=== PATIENT | female | born 1945 | race Caucasian/White ===

== ENCOUNTER → 2018-08-17 | Outpatient (CLI) | payer MEDICARE, OTHER ==
[2018-08-17 12:12] LABS: APPEARANCE,URINE CLOUDY; BILIRUBIN,URINE NEGATIVE (NEGATIVE); COLOR,URINE YELLOW; GLUCOSE, URINE NEGATIVE (NEGATIVE); KETONES,URINE NEGATIVE (NEGATIVE); LEUKOCYTE ESTERASE,URINE LARGE (NEGATIVE); NITRITE,URINE NEGATIVE (NEGATIVE); PROTEIN,URINE NEGATIVE (NEGATIVE); URINE SPECIFIC GRAVITY 1.015; UROBILINOGEN,URINE NEGATIVE mg/dL (<2.0)
[2018-08-17 12:29] LABS: ANION GAP 9 (5-19); BLOOD UREA NITROGEN 22 mg/dL (7-20); CALCIUM 9.3 mg/dL (8.4-10.2); CARBON DIOXIDE 24 mmol/L (22-30); CHLORIDE 107 mmol/L (98-107); GLUCOSE 115 mg/dL (75-110); POTASSIUM 4.2 mmol/L (3.6-5.0); SODIUM 140.3 mmol/L (137-145)
[2018-08-18 11:39] LABS: CREATININE URINE 117.8 mg/dL (Not Estab.); MICROALBUMIN URINE 12.2 ug/mL (Not Estab.)
== END ==
LOC: OD 11:31
PROVIDERS: ATTEND Internal Medicine Nephrology
DX: I12.9 Hypertensive chronic kidney disease with stage 1 through stage 4 chronic kidney disease, or unspecified chronic kidney disease (principal); N18.3 Chronic kidney disease, stage 3 (moderate)
CPT/HCPCS: 36415; 80048; 81001; 82043; 82306; 82570; 83970; 84100

== ENCOUNTER → 2018-08-17 | Outpatient (CLI) | payer MEDICARE, OTHER ==
--- NOTE | 2018-08-17 13:56 | RADIOLOGY REPORT (SQ) ---
EXAM DESCRIPTION: U/S RETROPERITON (RENAL/AORTA) COMPLETED DATE/TIME: 08/17/2018 1:19 pm REASON FOR STUDY: CHRONIC KIDNEY DISEASE, STAGE 3 (MODERATE N18.3 CHRONIC KIDNEY DISEASE, STAGE 3 ( MODERATE) COMPARISON: None. TECHNIQUE: Dynamic and static grayscale images acquired of the kidneys and bladder and recorded on P ACS. Additional selected color Doppler and spectral images recorded. LIMITATIONS: None. FINDINGS: RIGHT KIDNEY: Poorly seen. Small. 6.2 x 3.2 x 3.2 cm. LEFT KIDNEY: Poorly seen. Small. 8 x 3.9 x 4 cm. BLADDER: Bladder is nondistended. OTHER FINDINGS: No other significant finding. IMPRESSION: Small kidneys. Very limited study. TECHNICAL DOCUMENTATION: JOB ID: [id number] [employer]- All Rights Reserved Reading location - IP/workstation name: [email or web address]
== END ==
LOC: RAD 12:06
PROVIDERS: ATTEND Internal Medicine Nephrology
DX: N18.3 Chronic kidney disease, stage 3 (moderate) (principal)
CPT/HCPCS: 76770

== ENCOUNTER → 2018-12-18 | Outpatient (CLI) | payer MEDICARE, OTHER ==
[2018-12-18 11:10] LABS: ANION GAP 9 (5-19); BLOOD UREA NITROGEN 25 mg/dL (7-20); CALCIUM 9.1 mg/dL (8.4-10.2); CARBON DIOXIDE 25 mmol/L (22-30); CHLORIDE 106 mmol/L (98-107); GLUCOSE 98 mg/dL (75-110); POTASSIUM 4.1 mmol/L (3.6-5.0)
== END ==
LOC: OD 10:15
PROVIDERS: ATTEND Internal Medicine Nephrology
DX: I12.9 Hypertensive chronic kidney disease with stage 1 through stage 4 chronic kidney disease, or unspecified chronic kidney disease (principal); N18.3 Chronic kidney disease, stage 3 (moderate)
CPT/HCPCS: 36415; 80048

== ENCOUNTER → 2019-01-16 | Outpatient (CLI) | payer MEDICARE, OTHER ==
[2019-01-16 13:07] LABS: ANION GAP 10 (5-19); BLOOD UREA NITROGEN 39 mg/dL (7-20); CALCIUM 9.1 mg/dL (8.4-10.2); CARBON DIOXIDE 24 mmol/L (22-30); CHLORIDE 106 mmol/L (98-107); GLUCOSE 114 mg/dL (75-110); POTASSIUM 4.6 mmol/L (3.6-5.0)
== END ==
LOC: OD 11:46
PROVIDERS: ATTEND Internal Medicine Nephrology
DX: I12.9 Hypertensive chronic kidney disease with stage 1 through stage 4 chronic kidney disease, or unspecified chronic kidney disease (principal); N18.3 Chronic kidney disease, stage 3 (moderate)
CPT/HCPCS: 36415; 80048

== ENCOUNTER → 2019-04-17 | Outpatient (CLI) | payer MEDICARE, OTHER ==
[2019-04-17 12:28] LABS: ABSOLUTE BASOPHILS # (AUTO) 0.1 10^3/uL (0.0-0.2); ABSOLUTE EOSINOPHILS # (AUTO) 0.2 10^3/uL (0.0-0.6); ABSOLUTE LYMPHOCYTES (AUTO) 1.4 10^3/uL (0.5-4.7); ABSOLUTE MONOCYTES (AUTO) 0.6 10^3/uL (0.1-1.4); ABSOLUTE NEUT (AUTO) 4.7 10^3/uL (1.7-8.2); EOSINOPHILS % (AUTO) 2.5 % (0-6); HEMATOCRIT 38.6 % (36.0-47.0); HEMOGLOBIN 12.7 g/dL (12.0-15.5); LYMPHOCYTES % (AUTO) 19.6 % (13-45); MEAN CORPUSCULAR HEMOGLOBIN 31.2 pg (27.0-33.4); MEAN CORPUSCULAR HGB CONC 32.9 g/dL (32.0-36.0); MEAN CORPUSCULAR VOLUME 95 fl (80-97); PLATELET COUNT 132 10^3/uL (150-450); RED BLOOD COUNT 4.07 10^6/uL (3.72-5.28); RED CELL DISTRIBUTION WIDTH 13.9 % (11.5-14.0); SEGMENTED NEUTROPHILS % (AUTO) 67.9 % (42-78); TOTAL CELLS COUNTED % (AUTO) 100 %; WHITE BLOOD COUNT 6.9 10^3/uL (4.0-10.5)
[2019-04-17 12:31] LABS: APPEARANCE,URINE TURBID; BILIRUBIN,URINE NEGATIVE (NEGATIVE); GLUCOSE, URINE NEGATIVE (NEGATIVE); KETONES,URINE NEGATIVE (NEGATIVE); LEUKOCYTE ESTERASE,URINE LARGE (NEGATIVE); NITRITE,URINE NEGATIVE (NEGATIVE); PROTEIN,URINE 100 mg/dL (NEGATIVE); URINE SPECIFIC GRAVITY 1.015; UROBILINOGEN,URINE NEGATIVE mg/dL (<2.0)
[2019-04-17 12:32] LABS: COLOR,URINE YELLOW
[2019-04-17 12:45] LABS: ALBUMIN 3.6 g/dL (3.5-5.0); ANION GAP 12 (5-19); BLOOD UREA NITROGEN 22 mg/dL (7-20); CALCIUM 9.2 mg/dL (8.4-10.2); CARBON DIOXIDE 27 mmol/L (22-30); CHLORIDE 104 mmol/L (98-107); GLUCOSE 116 mg/dL (75-110); PHOSPHORUS 4.1 mg/dL (2.5-4.5); POTASSIUM 4.3 mmol/L (3.6-5.0)
[2019-04-18 13:36] LABS: CREATININE URINE 188.8 mg/dL (Not Estab.); MICROALBUMIN URINE 368.5 ug/mL (Not Estab.)
== END ==
LOC: OD 11:47
PROVIDERS: ATTEND Internal Medicine Nephrology
DX: I12.9 Hypertensive chronic kidney disease with stage 1 through stage 4 chronic kidney disease, or unspecified chronic kidney disease (principal); N18.4 Chronic kidney disease, stage 4 (severe); N39.0 Urinary tract infection, site not specified
CPT/HCPCS: 36415; 80069; 81001; 82043; 82306; 82570; 83970; 85025

== ENCOUNTER 2019-10-19 14:37 | Inpatient (IN) | payer MEDICARE, OTHER ==
--- NOTE | 2019-10-19 14:43 | ER Document Report ---
ED Neuro Symptoms/Deficit <YUDITH MULLERMILTON Payne - Last Filed: 10/19/19 19:00> - General Mode of Arrival: Medic Information source: Patient Notes: 74-year-old woman brought to the emergency department today apparently EMS was called to the home because patient had a fall but then learned that the patient has been having weakness in the left side since approximately 11 AM today. She also has slurred speech and facial droop which consistent with an acute stroke. The patient denies any pain states that she is only on blood pressure medications and no blood thinners. Currently the patient last known well was 2:30 AM on 10/19/2019. She awoke during the morning and then attempted to stand at about 11 AM and fail realizing that she had weakness. Apparently there was no family who had seen the patient since 2:30 in the morning. TRAVEL OUTSIDE OF THE [place] IN LAST 30 DAYS: No <AARON AVALOS - Last Filed: 10/25/19 08:34> - General Chief Complaint: S/S of Possible Stroke Stated Complaint: POSSIBLE STROKE Time Seen by Provider: 10/19/19 14:41 - Related Data Allergies/Adverse Reactions: benzocaine [From Hurricaine] Allergy (Severe, Verified 11/20/14 11:22) closed throat,couldn't breathe clonidine [Clonidine] Allergy (Severe, Verified 11/20/14 11:22) seeing things, dizziness pineapple [Pineapple] Allergy (Severe, Verified 11/20/14 11:22) eyes swollen shut Penicillins Allergy (Intermediate, Verified 11/20/14 11:22) swelling scallops Allergy (Severe, Uncoded 11/19/14 09:15) nausea/vomiting Hurricaine Allergy (Uncoded 11/05/14 02:07) Past Medical History - Social History Smoking Status: Unknown if Ever Smoked Family History: Reviewed & Not Pertinent - Past Medical History Cardiac Medical History: Reports: Hx Coronary Artery Disease, Hx Hypercholesterolemia, Hx Hypertension - meds x 6 years Denies: Hx Heart Attack Pulmonary Medical History: Reports: Hx Bronchitis Denies: Hx Asthma, Hx COPD, Hx Pneumonia Neurological Medical History: Denies: Hx Cerebrovascular Accident, Hx Seizures Musculoskeletal Medical History: Reports Hx Arthritis - back Past Surgical History: Reports: Hx Appendectomy, Hx Cholecystectomy, Hx H erniorrhaphy, Hx Hysterectomy - Immunizations Hx Diphtheria, Pertussis, Tetanus Vaccination: Yes Hx Pneumococcal Vaccination: 05/09/06 <AARON AVALOS - Last Filed: 10/25/19 08:34> Review of Systems - Review of Systems Notes: Constitutional: Negative for fever. HENT: Negative for sore throat. Eyes: Negative for visual changes. Cardiovascular: Negative for chest pain. Respiratory: Negative for shortness of breath. Gastrointestinal: Negative for abdominal pain, vomiting or diarrhea. Genitourinary: Negative for dysuria. Musculoskeletal: Negative for back pain. Skin: Negative for rash. Neurological: + Left upper and lower extremity weakness, left facial droop, slurred speech 10 point ROS negative except as marked above and in HPI. <ARAON AVALOS - Last Filed: 10/25/19 08:34> Physical Exam - Vital signs Vitals: Pulse Resp BP Pulse Ox 114 H 20 154/124 H 97 10/19/19 14:37 10/19/19 14:37 10/19/19 14:37 10/19/19 14:37 <BOYD MULLER - Last Filed: 10/19/19 19:00> - Notes Notes: PHYSICAL EXAMINATION: Physical Exam: General: Well-nourished well-developed 74-year-old woman in no acute distress HEENT: + Left facial droop with increased nasolabial fold, pupils equal round and reactive to light, MM moist,nares clear, oropharynx clear, airway patent Neck: supple, no adenopathy, no masses. Good range of motion Lungs: clear, no wheezing, no rales no rhonchi CVS: Irregularly irregular rhythm no murmur gallop or rub Abdomen: Soft, active, nontender, no masses, no hepatosplenomegaly Ext: No edema, clubbing or cyanosis. Neuro: Alert and responsive, left upper extremity weakness with 2-3/5 left hand strength compared to right, unable to lift the left leg against gravity. Skin: Intact no open lesions, no rash PSYCH: Normal mood, normal affect. <AARON AVALOS - Last Filed: 10/25/19 08:34> Course - Re-evaluation Re-evalutation: 10/19/19 18:44 I assumed care of this patient. I was waiting for the patient's CTA of the head and neck to come back. CTA of the head and neck failed to show any significant blockage. I went to evaluate the patient. On initial evaluation, it was clear that the patient was in atrial fibrillation. She has no history of atrial fibrillation. Her heart rates have not been controlled. I do not have a clear onset of this patient's symptoms, but she continues to have slurred speech, left facial droop, left upper extremity and left lower extremity weakness. Cardizem was ordered. I spoke briefly with input output clerk, Dr. Hall, about appropriate disposition for this patient. Unfortunately most of the hospitals in the area are without beds. The input output clerk has agreed to come and evaluate the patient for most appropriate disposition. 10/19/19 19:03 Dr. Hall came and evaluated the patient. He will accept her for admission. Patient received the initial Cardizem 10 bolus, her heart rate rapidly went into the 50s and 60s. Based on this information I told the nurse to hold the Cardizem drip. The patient is asymptomatic with her heart rate in the 50s. She will be admitted to the ICU for further care. - Vital Signs Vital signs: Temp Pulse Resp BP Pulse Ox 98.3 F 114 H 21 H 157/130 H 93 10/19/19 14:40 10/19/19 14:37 10/19/19 17:04 10/19/19 17:04 10/19/19 17:04 - Laboratory Result Diagrams: 10/19/19 15:01 10/19/19 15:01 Laboratory results interpreted by me: 10/19/19 10/19/19 10/19/19 14:58 15:01 15:01 RDW 14.1 H Plt Count 129 L PT 15.8 H Chloride Est GFR ( Amer) Est GFR (MDRD) Non-Af Glucose POC Glucose 134 H Creatine Kinase 10/19/19 15:01 RDW Plt Count PT Chloride 108 H Est GFR ( Amer) 54 L Est GFR (MDRD) Non-Af 45 L Glucose 148 H POC Glucose Creatine Kinase 22 L <BOYD MULLER M - Last Filed: 10/19/19 19:00> - Re-evaluation Re-evalutation: 10/19/19 15:57 Patient is not a candidate for TPA, her symptoms began at unknown time. Apparently dense stroke with left upper and lower extremity involvement facial droop and speech involvement. NIH scale 7-8. A CTA of the head and neck is being performed to exclude large vessel obstruction. - Laboratory Result Diagrams: 10/25/19 04:54 10/25/19 04:54 - Diagnostic Test Radiology reviewed: Image reviewed, Reports reviewed Radiology results interpreted by me: 10/19/19 15:51 CT head noncontrast: Mild chronic changes of atrophy and microvascular ischemia, no evidence of a acute stroke. - EKG Interpretation by Me Rhythm: A.Fib - Atrial fib, variable rate between 75 and 155, left bundle branch block, no other acute changes. Prior EKG 10/27/2014 revealing wide-complex tachycardia with left bundle branch block. <AARON AVALOS - Last Filed: 10/25/19 08:34> Critical Care Note - Critical Care Note Total time excluding time spent on procedures (mins): 20 <BOYD MULLER - Last Filed: 10/19/19 19:00> ED [employer]/Exc Criteria ED NIH Stroke Scale Discharge - Discharge Admitting Provider: Rafael (Precision Machine Operator) Unit Admitted: ICU <BOYD MULLER - Last Filed: 10/19/19 19:00> <AARON AVALOS - Last Filed: 10/25/19 08:34> - Discharge Clinical Impression: CVA (cerebral vascular accident) Qualifiers: CVA mechanism: unspecified Qualified Code(s): I63.9 - Cerebral infarction, unspecified Atrial fibrillation Qualifiers: Atrial fibrillation type: other persistent Qualified Code(s): I48.19 - Other persistent atrial fibrillation Condition: Stable Disposition: ADMITTED INPATIENT
--- NOTE | 2019-10-19 15:02 | RADIOLOGY REPORT (SQ) ---
EXAM DESCRIPTION: CT HEAD WITHOUT IMAGES COMPLETED DATE/TIME: 10/19/2019 2:49 pm REASON FOR STUDY: slurred speech COMPARISON: None. TECHNIQUE: Axial images acquired through the brain without intravenous contrast. Images reviewed wi th bone, brain and subdural windows. Additional sagittal and coronal reconstructions were generated. Images stored on PACS. All CT scanners at this facility use dose modulation, iterative reconstruction, and/or weight based d osing when appropriate to reduce radiation dose to as low as reasonably achievable (ALARA). [facility]: Dose Right [facility]: CareDose [facility]: Dose Right [facility]: Teradose 4D [facility]: [employer] RADIATION DOSE: CT Rad equipment meets quality standard of care and radiation dose reduction techniq ues were employed. CTDIvol: 48.4 mGy. DLP: 780 mGy-cm. mGy. LIMITATIONS: None. FINDINGS: VENTRICLES: Prominent. CEREBRUM: No masses. No hemorrhage. No midline shift. Areas of low density in the white matter mos t likely due to chronic micro-vascular ischemic change. No evidence for acute infarction. CEREBELLUM: No masses. No hemorrhage. No alteration of density. No evidence for acute infarction. EXTRAAXIAL SPACES: Mild age-related involutional change. No fluid collections. No masses. ORBITS AND GLOBE: No intra- or extraconal masses. Normal contour of globe without masses. CALVARIUM: No fracture. PARANASAL SINUSES: No fluid or mucosal thickening. SOFT TISSUES: No mass or hematoma. OTHER: No other significant finding. IMPRESSION: MILD CHRONIC CHANGES OF ATROPHY AND MICROVASCULAR ISCHEMIA. NO ACUTE PROCESS. EVIDENCE OF ACUTE STROKE: NO. COMMENT: Pertinent positive or negative findings of the imaging study reported as a CRITICAL EXAM sal AVALOS MD at14:53 on 10/19/2019. Category of Critical Exam: Stroke protocol. TECHNICAL DOCUMENTATION: JOB ID: [id number] Quality ID # [id number]: Final reports with documentation of one or more dose reduction techniques (e.g., Au tomated exposure control, adjustment of the mA and/or kV according to patient size, use of iterative reconstruction technique) 2010 [employer]- All Rights Reserved Reading location - IP/workstation name: [email or web address]
[2019-10-19 15:16] LABS: INTERNATIONAL RATION (INR) 1.25
[2019-10-19 15:17] LABS: PARTIAL THROMBOPLASTIN TIME 25.5 SEC (23.5-35.8)
[2019-10-19 15:20] LABS: PROTHROMBIN TIME 15.8 SEC (11.4-15.4)
[2019-10-19 15:25] LABS: ABSOLUTE BASOPHILS # (AUTO) 0.1 10^3/uL (0.0-0.2); ABSOLUTE EOSINOPHILS # (AUTO) 0.1 10^3/uL (0.0-0.6); ABSOLUTE LYMPHOCYTES (AUTO) 1.6 10^3/uL (0.5-4.7); ABSOLUTE MONOCYTES (AUTO) 0.5 10^3/uL (0.1-1.4); ABSOLUTE NEUT (AUTO) 5.8 10^3/uL (1.7-8.2); EOSINOPHILS % (AUTO) 1.8 % (0-6); HEMATOCRIT 43.2 % (36.0-47.0); HEMOGLOBIN 14.4 g/dL (12.0-15.5); LYMPHOCYTES % (AUTO) 19.3 % (13-45); MEAN CORPUSCULAR HEMOGLOBIN 31.6 pg (27.0-33.4); MEAN CORPUSCULAR HGB CONC 33.4 g/dL (32.0-36.0); MEAN CORPUSCULAR VOLUME 95 fl (80-97); PLATELET COUNT 129 10^3/uL (150-450); RED BLOOD COUNT 4.56 10^6/uL (3.72-5.28); RED CELL DISTRIBUTION WIDTH 14.1 % (11.5-14.0); SEGMENTED NEUTROPHILS % (AUTO) 71.9 % (42-78); TOTAL CELLS COUNTED % (AUTO) 100 %; WHITE BLOOD COUNT 8.1 10^3/uL (4.0-10.5)
[2019-10-19 15:36] LABS: ALBUMIN 3.9 g/dL (3.5-5.0); ALKALINE PHOSPHATASE 58 U/L (38-126); ANION GAP 7 (5-19); ASPARTATE AMINO TRANSFERASE 26 U/L (14-36); BILIRUBIN,DIRECT 0.1 mg/dL (0.0-0.4); BILIRUBIN,TOTAL 0.8 mg/dL (0.2-1.3); BLOOD UREA NITROGEN 16 mg/dL (7-20); CALCIUM 9.5 mg/dL (8.4-10.2); CARBON DIOXIDE 24 mmol/L (22-30); CHLORIDE 108 mmol/L (98-107); CREATINE KINASE 22 U/L (30-135); GLUCOSE 148 mg/dL (75-110); POTASSIUM 4.1 mmol/L (3.6-5.0); TOTAL PROTEIN 7.5 g/dL (6.3-8.2)
--- NOTE | 2019-10-19 15:44 | RADIOLOGY REPORT (SQ) ---
EXAM DESCRIPTION: CHEST SINGLE VIEW IMAGES COMPLETED DATE/TIME: 10/19/2019 2:26 pm REASON FOR STUDY: slurred speech COMPARISON: 11/04/2014 EXAM PARAMETERS: NUMBER OF VIEWS: One view. TECHNIQUE: Single frontal radiographic view of the chest acquired. RADIATION DOSE: NA LIMITATIONS: None. FINDINGS: LUNGS AND PLEURA: Lungs are hyperinflated. No focal consolidation or pleural effusion. N o pneumothorax. MEDIASTINUM AND HILAR STRUCTURES: Normal mediastinal contour. No hilar mass. HEART AND VASCULAR STRUCTURES: Moderate cardiomegaly. No pulmonary vascular congestion. BONES: No acute findings. HARDWARE: None in the chest. OTHER: No other significant finding. IMPRESSION: Moderate cardiomegaly. No acute cardiopulmonary disease. Hyperinflated lungs which can be seen with obstructive lung disease. TECHNICAL DOCUMENTATION: JOB ID: [id number] 2010 [employer]- All Rights Reserved Reading location - IP/workstation name: [email or web address]
[2019-10-19 15:48] LABS: CREATINE KINASE MB 0.55 ng/mL (<4.55); TROPONIN I 0.015 ng/mL
[2019-10-19] MEDS ORDERED: ASPIRIN 325 MG TABLET PO ONE (16:17)
--- NOTE | 2019-10-19 17:21 | RADIOLOGY REPORT (SQ) ---
EXAM DESCRIPTION: CTA HEAD IMAGES COMPLETED DATE/TIME: 10/19/2019 5:05 pm REASON FOR STUDY: CVA COMPARISON: None. TECHNIQUE: Post IV contrast scanning, thin section axial imaging through the brain to evaluate the a rterial structures. Source and MIP images are saved and reviewed on PACS. Advanced 3D imaging as volume-rendering, MIPs, SSD performed? yes All CT scanners at this facility use dose modulation, iterative reconstruction, and/or weight based d osing when appropriate to reduce radiation dose to as low as reasonably achievable (ALARA). [facility]: Dose Right [facility]: CareDose [facility]: Dose Right [facility]: Teradose 4D [facility]: [employer] CONTRAST TYPE AND DOSE: Contrast type and dose not recorded here. Refer to technologist's notes. RENAL FUNCTION: BUN 16 creatinine 1.18 LIMITATIONS: None. FINDINGS: [place]: The anterior, middle, posterior cerebral arteries are all patent. No ev idence of aneurysm or focal stenosis. POSTERIOR CIRCULATION: The distal vertebral arteries are patent as is the basilar artery. No aneurysm . BRAIN: No gross enhancing lesions. 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 SINUSES: No fluid or mucosal thickening. OTHER: No other significant finding. IMPRESSION: NO CTA EVIDENCE OF STENOSIS OR ANEURYSM OF THE [place]. TECHNICAL DOCUMENTATION: JOB ID: [id number] Quality ID # [id number]: Final reports with documentation of one or more dose reduction techniques (e.g., Au tomated exposure control, adjustment of the mA and/or kV according to patient size, use of iterative reconstruction technique) 2010 [employer]- All Rights Reserved Reading location - IP/workstation name: [email or web address]
--- NOTE | 2019-10-19 17:24 | RADIOLOGY REPORT (SQ) ---
EXAM DESCRIPTION: CTA NECK IMAGES COMPLETED DATE/TIME: 10/19/2019 5:05 pm REASON FOR STUDY: CVA COMPARISON: None. TECHNIQUE: Axial dynamic scanning technique with dynamic contrast enhancement through the extra-scrap yard worker nial carotid and vertebral arteries. Multiplanar reconstruction. 3-D MIPS and Volume-rendered imag es acquired at the workstation and saved to PACS. Images are reviewed in soft tissue, bone, lung w indows. All CT scanners at this facility use dose modulation, iterative reconstruction, and/or weight based d osing when appropriate to reduce radiation dose to as low as reasonably achievable (ALARA). [facility]: Dose Right [facility]: CareDose [facility]: Dose Right [facility]: Teradose 4D [facility]: [employer] CONTRAST TYPE AND DOSE: Contrast type and dose not recorded here. Refer to technologist's notes. RENAL FUNCTION: BUN 16 creatinine 1.18 LIMITATIONS: None. FINDINGS: AORTIC ARCH: Normal three-vessel origin. Bilateral subclavian arteries are patent. No d issection. RIGHT CAROTIDS: Patent common, internal and external carotid arteries without suggestion of significa nt stenosis or irregular plaque. No dissection. RIGHT VERTEBRAL: Patent. Smaller than the left. LEFT CAROTIDS: Patent common, internal and external carotid arteries without suggestion of significan t stenosis. There is calcified plaque in the carotid bulb. No dissection. LEFT VERTEBRAL: Patent. No dissection. OTHER: No other significant finding. OTHER: 3-D reconstructions confirm findings. IMPRESSION: There is some prominent calcified plaque in the left carotid bulb. There appears to be less than 50% stenosis of the ICA. The right vertebral artery is smaller than the left. COMMENT: Quality ID #[id number]: Measurements of distal internal carotid diameter were used as the denomina tor for stenosis measurement. TECHNICAL DOCUMENTATION: JOB ID: [id number] Quality ID # [id number]: Final reports with documentation of one or more dose reduction techniques (e.g., Au tomated exposure control, adjustment of the mA and/or kV according to patient size, use of iterative reconstruction technique) 2010 [employer]- All Rights Reserved Reading location - IP/workstation name: [email or web address]
[2019-10-19] MEDS ORDERED: DILTIAZEM HCL INJ 25 MG/5 ML VIAL IV ONE (18:34)
[2019-10-19] MEDS ORDERED: DILTIAZEM HCL/D5W 125 MG/125 ML RTUINJ IV PRN (18:35)
--- NOTE | 2019-10-19 19:07 | EKG REPORT ---
SEVERITY:- ABNORMAL ECG - ATRIAL FIBRILLATION, V-RATE 75-155 LEFT BUNDLE BRANCH BLOCK : Confirmed by: Yasmine Johnson MD 19-Oct-2019 19:06:33
[2019-10-19] MEDS ORDERED: ACETAMINOPHEN 325 MG TABLET PO PRN (19:31)
[2019-10-19] MEDS ORDERED: HEPARIN SOD (PORCINE) 1,000 UNIT/ML 10 ML VIAL IV ONE (19:44)
[2019-10-19] MEDS ORDERED: HEPARIN SODIUM,PORCINE/D5W 25,000 UNIT/250 ML RTUINJ IV PRN (19:44)
--- NOTE | 2019-10-19 21:37 | RADIOLOGY REPORT (SQ) ---
EXAM DESCRIPTION: MR BRAIN WITHOUT IV CONTRAST COMPLETED DATE/TME: 10/19/2019 00:00 CLINICAL HISTORY: Stroke protocol COMPARISON: 10/19/2019, TECHNIQUE: Multiplanar images of the brain were obtained without the administration of intravenous contrast FINDINGS: Ventricles and sulci are mildly prominent consistent with age-related atrophy. There is no evidence of midline shift. There is mild periventricular white matter disease and scattered foci of abnormal signal consistent with microvascular ischemic changes. Additional areas of abnormal T2 signal are noted in the posterior aspect of the insular cortex on the right and the external capsule as well as adjacent areas in the moulton radiata and segments at the frontoparietal lobe. Additional small foci are present in the occipital lobe. These areas are dark on ADC sequence. IMPRESSION: MULTIPLE SMALL FOCI OF ACUTE INFARCT WHICH INVOLVES SEGMENTS OF THE RIGHT INSULAR CORTEX, MOULTON RADIATA AND CORTICAL/SUBCORTICAL AREAS IN THE POSTERIOR FRONTAL AND PARIETAL LOBE WELL TWO SMALL FOCI IN THE OCCIPITAL LOBE GENERALIZED ATROPHY WITH PERIVENTRICULAR WHITE MATTER DISEASE AND MICROVASCULAR ISCHEMIC CHANGES Dr. Salinas was called and notified of the findings at 8:27 PM.
[2019-10-19] MEDS ORDERED: LABETALOL HCL INJ 20 MG/4 ML DISP.SYRIN IV PRN (21:50)
[2019-10-19] MEDS ORDERED: ATORVASTATIN CALCIUM 40 MG TABLET PO SCH ×2 (22:00)
[2019-10-19] MEDS: ATORVASTATIN CALCIUM 80 MG TABLET PO SCH (22:00)
[2019-10-19] MEDS ORDERED: HEPARIN SOD (PORCINE) 1,000 UNIT/ML 10 ML VIAL IV PRN (22:45)
[2019-10-19 22:52] LABS: FREE T3 2.57 pg/mL (2.77-5.27); FREE T4 (FREE THYROXINE) 1.3 ng/dL (0.78-2.19)
[2019-10-19 23:05] LABS: THYROID STIMULATING HORMONE 2.25 uIU/mL (0.47-4.68)
--- NOTE | 2019-10-20 00:18 | CRITICAL CARE ADMISSION REPORT ---
<RANJAN NOLASCO - Last Filed: 10/19/19 23:24> HPI Date:: 10/19/19 Time:: 19:00 Reason for ICU Reason:: Acute Stroke Admission Date/Time & PCP: Admission Date/Time: 10/19/19 19:40 Primary Care Provider: ANNMARIE YAN MD HPI: Shiloh Spencer is a 74-year-old female, with a past medical history of hypertension on losartan 100 mg daily, Lopressor 50 mg BID, and hydrochlorothiazide 12.5 mg daily presented to the ED via EMS after a fall. Patient states that she went to bed early last evening woke up at 3:30 AM and felt good. She is been having left-sided weakness at approximately 11 AM today. When she got up to take a shower she had worsening left-sided weakness and fell she denies any trauma from the fall. She herself called EMS, whom transported her to the ED. Upon arrival to the ED 1445 her blood pressure was 154/124 with a heart rate of 132 EKG revealed new onset atrial fibrillation. We were called to the ED to evaluate the patient at which time she was noted to have a blood pressure of 181/160 with heart rate 120s to 130s. She was bolused with 10 mg of diltiazem and a diltiazem drip was started her blood pressure did come down to 153/81 and heart rate of 62 remained in Afib. She had a new left facial droop, and slurred speech. She had an NIH stroke scale of 8. CTA of the head was done and revealed no intracranial abnormalities. MRI of the brain was done which revealed multiple small foci of acute infarct involving segments of the right insular cortex, dillard radiata, and cortical/subcortical areas in the posterior frontal and parietal lobe as well as 2 small foci in the occipital lobe. Heparin drip was ordered and she was admitted to the ICU for further management. - Diagnosis/Plan (1) Atrial fibrillation Qualifiers: Atrial fibrillation type: unspecified Qualified Code(s): I48.91 - Unspecified atrial fibrillation Is this a current diagnosis for this admission?: Yes Plan: New onset A. fib Continue heparin drip Cardizem drip to keep heart rate less than 110 Serial troponins We will get thyroid studies (2) CVA (cerebral vascular accident) Qualifiers: CVA mechanism: unspecified Qualified Code(s): I63.9 - Cerebral infarction, unspecified Is this a current diagnosis for this admission?: Yes Plan: MRI consistent with acute infarct is likely from new onset atrial fibrillation Continue heparin drip Will start aspirin High-dose Lipitor 80 mg p.o. nightly But panel in a.m. We will get TTE with bubble study to rule out PFO Check hemoglobin A1c Bedside swallow eval Neurochecks every 4 hours and as needed with any change in patient's condition Control hypertension with labetalol 20 mg IV as needed Stroke nurse consulted PT/ OT consult (3) Hypertension Qualifiers: Hypertension type: essential hypertension Qualified Code(s): I10 - Essential (primary) hypertension Is this a current diagnosis for this admission?: Yes Plan: Labetalol 20 mg IV as needed for a goal SBP less than 180 and DBP less than 105 We will hold on restarting home antihypertensives until formal swallow eval is completed Past Medical History Cardiac Medical History: Reports: Hypertension - meds x 6 years Denies: Myocardial Infarction Pulmonary Medical History: Reports: Bronchitis Denies: Asthma, Chronic Obstructive Pulmonary Disease (COPD), Pneumonia Neurological Medical History: Denies: Seizures Musculoskeltal Medical History: Reports: Arthritis - back Psychiatric Medical History: Reports: Depression Hematology: Reports: Anemia Past Surgical History Past Surgical History: Reports: Appendectomy, Cholecystectomy, Herniorrhaphy, Hysterectomy Social/Family History - Social History Smoking Status: Never Smoker Frequency of Alcohol Use: Rare Hx Recreational Drug Use: No Drugs: None Hx Prescription Drug Abuse: No - Medication/Allergies Home Medications: Gabapentin 300 mg PO TID 11/19/14 Losartan Potassium 100 mg PO DAILY 11/19/14 Metoprolol Tartrate [Lopressor 50 mg Tablet] 50 mg PO BID 11/19/14 Acetaminophen [Acetaminophen Extra Strength] 500 mg PO DAILYP PRN 10/19/19 Hydrochlorothiazide [Hydrodiuril 12.5 mg Tablet] 12.5 mg PO DAILY 10/19/19 Allergies/Adverse Reactions: benzocaine [From Hurricaine] Allergy (Severe, Verified 11/20/14 11:22) closed throat,couldn't breathe clonidine [Clonidine] Allergy (Severe, Verified 11/20/14 11:22) seeing things, dizziness pineapple [Pineapple] Allergy (Severe, Verified 07/15/15 11:22) eyes swollen shut Penicillins Allergy (Intermediate, Verified 11/20/14 11:22) swelling scallops Allergy (Severe, Uncoded 11/19/14 09:15) nausea/vomiting Hurricaine Allergy (Uncoded 11/05/14 02:07) Review of Systems Constitutional: PRESENT: weakness Cardiovascular: PRESENT: chest pain, palpitations Musculoskeletal: PRESENT: muscle weakness Neurological: PRESENT: focal weakness, numbness, weakness Physical Exam Vital Signs: Temp Pulse Resp BP Pulse Ox 97.6 F 87 20 133/108 H 95 10/19/19 21:40 10/19/19 21:40 10/19/19 21:43 10/19/19 21:43 10/19/19 21:43 Intake & Output 10/18/19 10/19/19 10/20/19 06:59 06:59 06:59 Intake Total 0 Balance 0 Weight 75.5 kg Weight/Height Weight 75.5 kg Height 4 ft 11 in General appearance: PRESENT: mild distress Head exam: PRESENT: atraumatic Eye exam: PRESENT: PERRLA Mouth exam: PRESENT: moist, neck supple Neck exam: PRESENT: full ROM Respiratory exam: PRESENT: clear to auscultation rocky Cardiovascular exam: PRESENT: irregular rhythm, tachycardia, other Pulses: PRESENT: normal radial pulses, normal dorsalis pedis pul GI/Abdominal exam: PRESENT: normal bowel sounds Neurological exam: PRESENT: alert, awake, oriented to person, oriented to place, oriented to time, oriented to situation, motor sensory deficit, other - slurred speech, left facial droop Laboratory/Radiographs Laboratory Results: 10/19/19 15:01 10/19/19 15:01 10/19/19 10/19/19 15:01 15:01 WBC 8.1 RBC 4.56 Hgb 14.4 Hct 43.2 MCV 95 MCH 31.6 MCHC 33.4 RDW 14.1 H Plt Count 129 L Seg Neutrophils % 71.9 Sodium 139.3 Potassium 4.1 Chloride 108 H Carbon Dioxide 24 Anion Gap 7 BUN 16 Creatinine 1.18 Est GFR ( Amer) 54 L Glucose 148 H Calcium 9.5 Total Bilirubin 0.8 AST 26 Alkaline Phosphatase 58 Total Protein 7.5 Albumin 3.9 10/19/19 10/19/19 10/19/19 15:01 15:01 22:06 Creatine Kinase 22 L CK-MB (CK-2) 0.55 Troponin I 0.015 0.014 Impressions: Head MRI 10/19/19 00:00 IMPRESSION: MULTIPLE SMALL FOCI OF ACUTE INFARCT WHICH INVOLVES SEGMENTS OF THE RIGHT INSULAR CORTEX, DILLARD RADIATA AND CORTICAL/SUBCORTICAL AREAS IN THE POSTERIOR FRONTAL AND PARIETAL LOBE WELL TWO SMALL FOCI IN THE OCCIPITAL LOBE GENERALIZED ATROPHY WITH PERIVENTRICULAR WHITE MATTER DISEASE AND MICROVASCULAR ISCHEMIC CHANGES Dr. Salinas was called and notified of the findings at 8:27 PM. Chest X-Ray 10/19/19 14:40 IMPRESSION: Moderate cardiomegaly. No acute cardiopulmonary disease. Hyperinflated lungs which can be seen with obstructive lung disease. Head CT 10/19/19 14:40 IMPRESSION: MILD CHRONIC CHANGES OF ATROPHY AND MICROVASCULAR ISCHEMIA. NO ACUTE PROCESS. EVIDENCE OF ACUTE STROKE: NO. Head CTA 10/19/19 14:59 IMPRESSION: NO CTA EVIDENCE OF STENOSIS OR ANEURYSM OF THE [place]. Neck CTA 10/19/19 14:59 IMPRESSION: There is some prominent calcified plaque in the left carotid bulb. There appears to be less than 50% stenosis of the ICA. The right vertebral artery is smaller than the left. All labs, radiographs, diagnostic studies and EKGs were personally reviewed: Yes In addition, reports of radiographic and diagnostic studies were read: Yes Critical Time Critical Time (minutes): 75 -: The care of a critically ill patient is dynamic. This note represents a static moment in the admission process. Orders and treatments may be given simultaneously and urgently, and time is not auto claim representative of the treatment process. This patient requires Critical Care secondary to life threatening organ or limb dysfunction. Without Critical Care services, the patient is at risk for inc reased mortality and morbidity. <JOANIE WALLS - Last Filed: 10/20/19 07:46> HPI Admission Date/Time & PCP: Admission Date/Time: 10/19/19 19:40 Primary Care Provider: ANNMARIE YAN MD Plan Summary: I personally saw and examined the patient in the emergency room in conjunction with JOE Nolasco. Patient last seen/known normal appears to have been approximately 2 AM which is almost 12 hours from her presentation to the emergency room She is right-hand dominant. I personally performed the NIHSS stroke scale giving her an 8. She has left-sided partial paresis. Left arm more affected than the left leg but both deficient with motor function at about 2/5. She has some dysarthria but no cognitive dysfunction. She endorses some chest discomfort and is notably in atrial fibrillation with a rate hovers at 1 20-1 30. Blood pressure is 150 systolic. There is some concern that given her large arm anatomy the blood pressure cuff may not be accurate and will need to be aware of this. Given the fact the patient is atrial fibrillation and has stroke syndrome we evaluated the CTA which did not show any large vessel occlusion. She is a candidate for heparin and have started this over a direct anti-10 a inhibitor so that we can watch for any potential bleeding given a recent fall. She does have ecchymosis on the right arm and will continue to monitor on heparin. We will place her in the ICU. In addition to nurse practitioner Matthew's time with the patient, I spent approximately 40 minutes in evaluation and discussion of case, plan and care. Physical Exam Vital Signs: Temp Pulse Resp BP Pulse Ox 97.8 F 95 20 112/77 99 10/20/19 04:00 10/20/19 03:40 10/20/19 06:00 10/20/19 05:32 10/20/19 06:00 Intake & Output 10/19/19 10/20/19 10/21/19 06:59 06:59 06:59 Intake Total 0 85 Output Total 30 Balance -30 85 Weight 75.5 kg Weight/Height Weight 75.5 kg Height 4 ft 11 in Laboratory/Radiographs Laboratory Results: 10/20/19 06:15 10/20/19 04:22 10/19/19 10/19/19 10/19/19 15:01 15:01 22:06 WBC 8.1 RBC 4.56 Hgb 14.4 Hct 43.2 MCV 95 MCH 31.6 MCHC 33.4 RDW 14.1 H Plt Count 129 L Seg Neutrophils % 71.9 Sodium 139.3 Potassium 4.1 Chloride 108 H Carbon Dioxide 24 Anion Gap 7 BUN 16 Creatinine 1.18 Est GFR ( Amer) 54 L Glucose 148 H Calcium 9.5 Total Bilirubin 0.8 AST 26 Alkaline Phosphatase 58 Total Protein 7.5 Albumin 3.9 Triglycerides Cholesterol LDL Cholesterol Direct VLDL Cholesterol HDL Cholesterol TSH 2.25 Free T4 1.30 Free T3 pg/mL 2.57 L 06/13/20 06/13/20 04:22 06:15 WBC 7.2 RBC 4.06 Hgb 12.8 Hct 38.2 MCV 94 MCH 31.6 MCHC 33.6 RDW 14.2 H Plt Count 90 L Seg Neutrophils % 53.4 Sodium 142.2 Potassium 3.4 L Chloride 111 H Carbon Dioxide 21 L Anion Gap 10 BUN 18 Creatinine 1.16 Est GFR ( Amer) 56 L Glucose 86 Calcium 9.1 Total Bilirubin 0.8 AST 23 Alkaline Phosphatase 44 Total Protein 6.9 Albumin 3.4 L Triglycerides 70 Cholesterol 131.10 LDL Cholesterol Direct 82 VLDL Cholesterol 14.0 HDL Cholesterol 36 L TSH Free T4 Free T3 pg/mL 10/19/19 10/19/19 10/19/19 15:01 15:01 22:06 Creatine Kinase 22 L CK-MB (CK-2) 0.55 Troponin I 0.015 0.014 10/20/19 06:15 Creatine Kinase CK-MB (CK-2) Troponin I 0.015 Impressions: Head MRI 10/19/19 00:00 IMPRESSION: MULTIPLE SMALL FOCI OF ACUTE INFARCT WHICH INVOLVES SEGMENTS OF THE RIGHT INSULAR CORTEX, DILLARD RADIATA AND CORTICAL/SUBCORTICAL AREAS IN THE POSTERIOR FRONTAL AND PARIETAL LOBE WELL TWO SMALL FOCI IN THE OCCIPITAL LOBE GENERALIZED ATROPHY WITH PERIVENTRICULAR WHITE MATTER DISEASE AND MICROVASCULAR ISCHEMIC CHANGES Dr. Salinas was called and notified of the findings at 8:27 PM. Chest X-Ray 10/19/19 14:40 IMPRESSION: Moderate cardiomegaly. No acute cardiopulmonary disease. Hyperinflated lungs which can be seen with obstructive lung disease. Head CT 10/19/19 14:40 IMPRESSION: MILD CHRONIC CHANGES OF ATROPHY AND MICROVASCULAR ISCHEMIA. NO ACUTE PROCESS. EVIDENCE OF ACUTE STROKE: NO. Head CTA 10/19/19 14:59 IMPRESSION: NO CTA EVIDENCE OF STENOSIS OR ANEURYSM OF THE [place]. Neck CTA 10/19/19 14:59 IMPRESSION: There is some prominent calcified plaque in the left carotid bulb. There appears to be less than 50% stenosis of the ICA. The right vertebral artery is smaller than the left. Critical Time -: The care of a critically ill patient is dynamic. This note represents a static moment in the admission process. Orders and treatments may be given simultaneously and urgently, and time is not auto claim representative of the treatment process. This patient requires Critical Care secondary to life threatening organ or limb dysfunction. Without Critical Care services, the patient is at risk for i ncreased mortality and morbidity.
[2019-10-20 05:44] LABS: ALBUMIN 3.4 g/dL (3.5-5.0); ALKALINE PHOSPHATASE 44 U/L (38-126); ANION GAP 10 (5-19); ASPARTATE AMINO TRANSFERASE 23 U/L (14-36); BILIRUBIN,DIRECT 0.1 mg/dL (0.0-0.4); BILIRUBIN,TOTAL 0.8 mg/dL (0.2-1.3); BLOOD UREA NITROGEN 18 mg/dL (7-20); CALCIUM 9.1 mg/dL (8.4-10.2); CARBON DIOXIDE 21 mmol/L (22-30); CHLORIDE 111 mmol/L (98-107); GLUCOSE 86 mg/dL (75-110); POTASSIUM 3.4 mmol/L (3.6-5.0); TOTAL PROTEIN 6.9 g/dL (6.3-8.2); TRIGLYCERIDES 70 mg/dL (<150)
[2019-10-20 05:56] LABS: DIRECT LDL 82 mg/dL (<100)
[2019-10-20 06:30] LABS: ABSOLUTE EOSINOPHILS # (AUTO) 0.2 10^3/uL (0.0-0.6); ABSOLUTE LYMPHOCYTES (AUTO) 2.7 10^3/uL (0.5-4.7); ABSOLUTE MONOCYTES (AUTO) 0.5 10^3/uL (0.1-1.4); ABSOLUTE NEUT (AUTO) 3.9 10^3/uL (1.7-8.2); BASOPHILS % (AUTO) 0.3 % (0-2); EOSINOPHILS % (AUTO) 2.3 % (0-6); HEMATOCRIT 38.2 % (36.0-47.0); HEMOGLOBIN 12.8 g/dL (12.0-15.5); LYMPHOCYTES % (AUTO) 36.8 % (13-45); MEAN CORPUSCULAR HEMOGLOBIN 31.6 pg (27.0-33.4); MEAN CORPUSCULAR HGB CONC 33.6 g/dL (32.0-36.0); MEAN CORPUSCULAR VOLUME 94 fl (80-97); MONOCYTES % (AUTO) 7.2 % (3-13); RED BLOOD COUNT 4.06 10^6/uL (3.72-5.28); RED CELL DISTRIBUTION WIDTH 14.2 % (11.5-14.0); SEGMENTED NEUTROPHILS % (AUTO) 53.4 % (42-78); TOTAL CELLS COUNTED % (AUTO) 100 %; WHITE BLOOD COUNT 7.2 10^3/uL (4.0-10.5)
[2019-10-20 06:37] LABS: INTERNATIONAL RATION (INR) 1.41; PROTHROMBIN TIME 17.4 SEC (11.4-15.4)
[2019-10-20 06:52] LABS: PLATELET COUNT 90 10^3/uL (150-450)
[2019-10-20 07:18] LABS: PARTIAL THROMBOPLASTIN TIME > 235.0 SEC (23.5-35.8)
[2019-10-20] MEDS: POTASSI CL 20 MEQ/50 ML RIDER 20 MEQ/50 ML RTUPB IV SCH ×2 (09:58→12:24)
[2019-10-20 10:42] LABS: INTERNATIONAL RATION (INR) 1.33; PROTHROMBIN TIME 16.6 SEC (11.4-15.4)
[2019-10-20 10:43] LABS: PARTIAL THROMBOPLASTIN TIME 72.4 SEC (23.5-35.8)
[2019-10-20] MEDS ORDERED: METOPROLOL TARTRATE PF/INJ 5 MG/5 ML SDV IV ONE (11:15)
[2019-10-20] MEDS: HYDROCHLOROTHIAZIDE 12.5 MG TABLET PO SCH (12:24)
[2019-10-20] MEDS: ASPIRIN 81 MG TABLET, ENT COATED PO SCH (12:24)
[2019-10-20] MEDS: METOPROLOL TARTRATE 25 MG TABLET PO SCH ×2 (12:24→21:53)
[2019-10-20] MEDS ORDERED: ACETAMINOPHEN 325 MG TABLET PO PRN (12:50)
[2019-10-20] MEDS: GABAPENTIN 300 MG CAPSULE PO SCH ×2 (13:03→17:18)
--- NOTE | 2019-10-20 15:34 | PDOC CRITICAL CARE PROG REPORT ---
General Date:: 10/20/19 ICU Day:: 2 Hospital Day:: 2 Resuscitation Status: Full Code Medical Power of [employer]ice: James Mackenzie Events in the past 12 to 24 Hours:: 10.20.2019: Patient admitted overnight because of nondominant hemisphere ischemic stroke symptoms. Her NIH score was 8 on admission as noted in our documentation. She was started on heparin because of atrial fibrillation but this is been discontinued because of the high PTT and the concern for risk of bleeding. She denies any headache. On admission yesterday she had some mild chest discomfort with atrial fibrillation and this has improved. With Cardizem her heart rate did drop to almost 40 and she has been transitioned off this. Her NIHSS stroke scale did not worsen and her hypertension has improved Review of systems relevant to events:: 10.20.2019: Blood pressure and heart rate are under better control. She did require 1 dose of labetalol for blood pressure last evening. Given 1 dose of Lopressor this morning because of an elevation in ventricular rate. Patient has improvement in her left arm and left leg movement. She denies headache, visual changes, chest pain, shortness of breath or bleeding Reason for ICU Addmission:: Acute Stroke Physical Exam Vital Signs: Temp Pulse Resp BP Pulse Ox 97.8 F 95 19 122/99 H 97 10/20/19 04:00 10/20/19 03:40 10/20/19 12:02 10/20/19 12:02 10/20/19 12:02 Intake & Output 10/19/19 10/20/19 10/21/19 06:59 06:59 06:59 Intake Total 0 135 Output Total 30 Balance -30 135 Weight 75.5 kg Weight/Height Weight 75.5 kg Height 4 ft 11 in General appearance: PRESENT: no acute distress, cooperative, morbidly obese, well-nourished Exam: Nontoxic non-intubated pleasant 74-year-old female no acute distress. She is awake alert oriented x3 Head exam: PRESENT: atraumatic, normocephalic Eye exam: PRESENT: conjunctiva pink, EOMI, PERRLA. ABSENT: conjunctival injection, nystagmus, scleral icterus Mouth exam: PRESENT: moist, neck supple, tongue midline Neck exam: ABSENT: carotid bruit, JVD, lymphadenopathy, thyromegaly, tracheal deviation Respiratory exam: PRESENT: clear to auscultation rocky, unlabored. ABSENT: accessory muscle use, rales, rhonchi, tachypnea, wheezes Cardiovascular exam: PRESENT: irregular rhythm, tachycardia Vascular exam: PRESENT: normal capillary refill. ABSENT: pallor GI/Abdominal exam: PRESENT: normal bowel sounds, soft. ABSENT: ascites, diste nded, guarding, mass, organolmegaly, rebound, tenderness Rectal exam: PRESENT: deferred Gentrourinary exam: ABSENT: indwelling catheter Extremities exam: PRESENT: pedal edema Musculoskeletal exam: ABSENT: deformity, dislocation Neurological exam: PRESENT: alert, awake, oriented to person, oriented to place, oriented to time, oriented to situation, reflexes normal, ataxia, motor sensory deficit - Left arm able to be held up for 10 seconds with occasional dip and drift. Left leg able to be held up for 5 seconds with mild drifting. Improved strength and movement compared to yesterday. NIHHS is now 4. She has mild dysarthria which is slightly improved and her facial paralysis has improved to only minor labial nasal fold changes. ABSENT: CN II-XII grossly intact, aphasic Psychiatric exam: PRESENT: appropriate affect, normal mood Focused psych exam: ABSENT: pressured speech, psychomotor agitation, restlessness Skin exam: PRESENT: dry, intact, warm. ABSENT: cyanosis, rash Tubes/Lines: ABSENT: Endotracheal Tube, Chest Tube, Central Line, Arterial Catheter, Dialysis catheter, Peg Tube, Nasogastic Tube, Other Laboratory/Radiographs Laboratory Results: 10/20/19 06:15 10/20/19 04:22 10/19/19 10/19/19 10/19/19 15:01 15:01 22:06 WBC 8.1 RBC 4.56 Hgb 14.4 Hct 43.2 MCV 95 MCH 31.6 MCHC 33.4 RDW 14.1 H Plt Count 129 L Seg Neutrophils % 71.9 Sodium 139.3 Potassium 4.1 Chloride 108 H Carbon Dioxide 24 Anion Gap 7 BUN 16 Creatinine 1.18 Est GFR ( Amer) 54 L Glucose 148 H Calcium 9.5 Total Bilirubin 0.8 AST 26 Alkaline Phosphatase 58 Total Protein 7.5 Albumin 3.9 Triglycerides Cholesterol LDL Cholesterol Direct VLDL Cholesterol HDL Cholesterol TSH 2.25 Free T4 1.30 Free T3 pg/mL 2.57 L 10/20/19 10/20/19 04:22 06:15 WBC 7.2 RBC 4.06 Hgb 12.8 Hct 38.2 MCV 94 MCH 31.6 MCHC 33.6 RDW 14.2 H Plt Count 90 L Seg Neutrophils % 53.4 Sodium 142.2 Potassium 3.4 L Chloride 111 H Carbon Dioxide 21 L Anion Gap 10 BUN 18 Creatinine 1.16 Est GFR ( Amer) 56 L Glucose 86 Calcium 9.1 Total Bilirubin 0.8 AST 23 Alkaline Phosphatase 44 Total Protein 6.9 Albumin 3.4 L Triglycerides 70 Cholesterol 131.10 LDL Cholesterol Direct 82 VLDL Cholesterol 14.0 HDL Cholesterol 36 L TSH Free T4 Free T3 pg/mL 10/19/19 10/19/19 10/19/19 15:01 15:01 22:06 Creatine Kinase 22 L CK-MB (CK-2) 0.55 Troponin I 0.015 0.014 10/20/19 06:15 Creatine Kinase CK-MB (CK-2) Troponin I 0.015 Impressions: Head MRI 10/19/19 00:00 IMPRESSION: MULTIPLE SMALL FOCI OF ACUTE INFARCT WHICH INVOLVES SEGMENTS OF THE RIGHT INSULAR CORTEX, DILLARD RADIATA AND CORTICAL/SUBCORTICAL AREAS IN THE POSTERIOR FRONTAL AND PARIETAL LOBE WELL TWO SMALL FOCI IN THE OCCIPITAL LOBE GENERALIZED ATROPHY WITH PERIVENTRICULAR WHITE MATTER DISEASE AND MICROVASCULAR ISCHEMIC CHANGES Dr. Salinas was called and notified of the findings at 8:27 PM. Chest X-Ray 10/19/19 14:40 IMPRESSION: Moderate cardiomegaly. No acute cardiopulmonary disease. Hyperinflated lungs which can be seen with obstructive lung disease. Head CT 10/19/19 14:40 IMPRESSION: MILD CHRONIC CHANGES OF ATROPHY AND MICROVASCULAR ISCHEMIA. NO ACUTE PROCESS. EVIDENCE OF ACUTE STROKE: NO. Head CTA 10/19/19 14:59 IMPRESSION: NO CTA EVIDENCE OF STENOSIS OR ANEURYSM OF THE [place]. Neck CTA 10/19/19 14:59 IMPRESSION: There is some prominent calcified plaque in the left carotid bulb. There appears to be less than 50% stenosis of the ICA. The right vertebral artery is smaller than the left. All labs, radiographs, diagnostic studies and EKGs were personally reviewed: Yes In addition, reports of radiographic and diagnostic studies were read: Yes Assessment and Plan - Diagnosis (1) Acute ischemic right MCA stroke Is this a current diagnosis for this admission?: Yes (2) Atrial fibrillation Qualifiers: Atrial fibrillation type: unspecified Qualified Code(s): I48.91 - Unspecified atrial fibrillation Is this a current diagnosis for this admission?: Yes (3) Hypertension Qualifiers: Hypertension type: essential hypertension Qualified Code(s): I10 - Essential (primary) hypertension Is this a current diagnosis for this admission?: Yes (4) Traumatic ecchymosis of right upper arm Qualifiers: Encounter type: initial encounter Qualified Code(s): S40.021A - Contusion of right upper arm, initial encounter Is this a current diagnosis for this admission?: Yes (5) Thrombocytopenia Is this a current diagnosis for this admission?: Yes (6) Obesity (BMI 30-39.9) Is this a current diagnosis for this admission?: Yes Plan Summary: Patient has had right MCA distribution stroke which appears to be related to embolic phenomena most likely atrial fibrillation. She has had an abnormal response to heparin and given the conflicting findings of acute treatment of stroke and A. fib have discontinued and will continue aspirin and subcutaneous heparin prophylaxis. Patient will need oral anticoagulation therapy (i.e. apixaban) before discharge. Preference is on day 4. Her NIHHS has improved to 4 and will continue to monitor her in the ICU. There is no definitive need for any intervention given the latency of her presentation and lack of CT findings consistent with acute thrombus. Have discussed her speech evaluation and have made diet modifications Physical therapy is also evaluated the patient. Some of her restrictions will also be synergistically related to her obesity and she will need aggressive rehab. Have started statin therapy as well as aspirin. We will continue supportive care in the ICU and maintain her in a neuro critical care ICU status to assure complete stabilization of her neurological function. Given the history of urinary tract infections that often accompany strokes women will check urinalysis. Perfunctory studies including echo, carotid artery evaluation and blood work have been done and will be treated and evaluated accordingly. Discussed case and care with the patient's son Critical Time Critical Time (minutes): 45 Level of Care: ICU Anticipated discharge: Acute Rehab Within: within 48 hours, within 72 hours -: 1. The care of a critical patient is a dynamic process. This note is a leasing representative synopsis but static in nature. The timeframe for treatments given in order is not necessarily the actual time these treatments may have been done. 2. This patient requires critical care secondary to ongoing requirements for therapy not offered or safe outside the critical care environment. Transfer to a lower level of care will result in altered life or limb morbidity and mortality. 3. Multidisciplinary rounds completed. 4. ABCDE bundle addressed.
--- NOTE | 2019-10-20 16:22 | RADIOLOGY REPORT (SQ) ---
EXAM DESCRIPTION: HUMERUS RIGHT IMAGES COMPLETED DATE/TIME: 10/20/2019 3:56 pm REASON FOR STUDY: Trauma COMPARISON: None. NUMBER OF VIEWS: Two views. TECHNIQUE: Two radiographic images were acquired of the right humerus to include elbow and shoulder in at least one projection. LIMITATIONS: None. FINDINGS: MINERALIZATION: Normal. BONES: No acute fracture or dislocation. No worrisome bone lesions. SOFT TISSUES: No obvious swelling or foreign body. OTHER: No other significant finding. IMPRESSION: No acute osseous abnormality of the right humerus. TECHNICAL DOCUMENTATION: JOB ID: [id number] [email or web address]- All Rights Reserved Reading location - IP/workstation name: [email or web address]
--- NOTE | 2019-10-20 17:40 | RADIOLOGY REPORT (SQ) ---
EXAM DESCRIPTION: VENOUS UNILATERAL UPPER IMAGES COMPLETED DATE/TIME: 10/20/2019 5:27 pm REASON FOR STUDY: swelling COMPARISON: None. TECHNIQUE: Dynamic and static carroll scale and color images acquired of the RIGHT arm venous system. S elected spectral images acquired with additional compression and augmentation maneuvers. The contrala teral subclavian vein and internal jugular vein were also imaged. Images stored on PACS. LIMITATIONS: None. FINDINGS: INTERNAL JUGULAR VEIN: Normal phasicity, compression, augmentation. No visualized echogeni c material on carroll scale. No defects on color images. Comparison opposite side normal. SUBCLAVIAN VEIN: Normal compression, augmentation. No visualized echogenic material on carroll scale. No defects on color images. AXILLARY VEIN: Normal compression, augmentation. No visualized echogenic material on carroll scale. No d efects on color images. BRACHIAL VEIN: Normal compression, augmentation. No visualized echogenic material on carroll scale. No d efects on color images. BASILIC VEIN: Normal compression, augmentation. No visualized echogenic material on carroll scale. No de fects on color images. CEPHALIC VEIN: Normal compression, augmentation. No visualized echogenic material on carroll scale. No d efects on color images. OTHER: 1.4 x 5.7 cm fluid collection within the subcutaneous soft tissues superior to the antecubital fossa. CONTRALATERAL SUBCLAVIAN VEIN AND INTERNAL JUGULAR VEIN: Normal phasicity, compression and augmentation. No visualized echogenic material on carroll scale. No de fects on color images. IMPRESSION: No deep vein thrombosis within the right upper extremity. 5.7 cm subcutaneous fluid collection adjacent to the antecubital fossa, which may represent an area o f IV catheter infiltration. TECHNICAL DOCUMENTATION: JOB ID: [id number] 2010 [employer]- All Rights Reserved Reading location - IP/workstation name: [email or web address]
[2019-10-20 18:51] LABS: APPEARANCE,URINE SLIGHTLY-CLOUDY; BILIRUBIN,URINE NEGATIVE (NEGATIVE); COLOR,URINE YELLOW; GLUCOSE, URINE NEGATIVE (NEGATIVE); KETONES,URINE NEGATIVE (NEGATIVE); PROTEIN,URINE 30 mg/dL (NEGATIVE); URINE SPECIFIC GRAVITY 1.042; UROBILINOGEN,URINE NEGATIVE mg/dL (<2.0)
--- NOTE | 2019-10-20 20:08 | CDI QUERY ---
CDI Query CDI Review: Dear Provider: To better reflect your patients severity of illness, morbidity, and resource utilization Please specify and document in the Progress Notes and Discharge Summary if you are monitoring / treating / evaluating any of the following conditions: Query Clinical indicators Please clarify if the Atrial fibrillation can be further specified: Paroxysmal Atrial Fibrillation Persistent Atrial Fibrillation Chronic (permanent) Atrial Fibrillation Other Unable to determine Per ED Notes: - EKG Interpretation by Me Rhythm: A.Fib - Atrial fib, variable rate between 75 and 155, left bundle branch block, no other acute changes. Prior EKG 10/27/2014 revealing wide-complex tachycardia with left bundle branch block. Per Critical Care Admission: Upon arrival to the ED 1445 her blood pressure was 154/124 with a heart rate of 132 EKG revealed new onset atrial fibrillation. The terms probable, suspected, likely, possible or still to be ruled out may be used if you are unable to determine the exact nature of a condition. Thank you for your consideration, Clinical Documentation Physician Advisors LISETTE Robertson
[2019-10-20] MEDS: HEPARIN SOD (PORCINE) 5,000 UNIT/ML 1 ML VIAL SUBCUT SCH (21:52)
[2019-10-20] MEDS: ATORVASTATIN CALCIUM 80 MG TABLET PO SCH (21:59)
[2019-10-21 05:08] LABS: ABSOLUTE EOSINOPHILS # (AUTO) 0.2 10^3/uL (0.0-0.6); ABSOLUTE LYMPHOCYTES (AUTO) 2.1 10^3/uL (0.5-4.7); ABSOLUTE MONOCYTES (AUTO) 0.5 10^3/uL (0.1-1.4); ABSOLUTE NEUT (AUTO) 1.9 10^3/uL (1.7-8.2); HEMATOCRIT 34.5 % (36.0-47.0); HEMOGLOBIN 11.5 g/dL (12.0-15.5); MEAN CORPUSCULAR HEMOGLOBIN 31.7 pg (27.0-33.4); MEAN CORPUSCULAR HGB CONC 33.5 g/dL (32.0-36.0); MEAN CORPUSCULAR VOLUME 95 fl (80-97); MONOCYTES % (AUTO) 9.8 % (3-13); RED BLOOD COUNT 3.64 10^6/uL (3.72-5.28); RED CELL DISTRIBUTION WIDTH 14.1 % (11.5-14.0); SEGMENTED NEUTROPHILS % (AUTO) 39.2 % (42-78); TOTAL CELLS COUNTED % (AUTO) 100 %; WHITE BLOOD COUNT 4.7 10^3/uL (4.0-10.5)
[2019-10-21 05:24] LABS: ANION GAP 5 (5-19); BLOOD UREA NITROGEN 15 mg/dL (7-20); CALCIUM 8.5 mg/dL (8.4-10.2); CARBON DIOXIDE 23 mmol/L (22-30); CHLORIDE 111 mmol/L (98-107); GLUCOSE 81 mg/dL (75-110); PHOSPHORUS 3.9 mg/dL (2.5-4.5); POTASSIUM 4.2 mmol/L (3.6-5.0)
[2019-10-21 06:04] LABS: PLATELET COUNT 75 10^3/uL (150-450)
[2019-10-21] MEDS: HEPARIN SOD (PORCINE) 5,000 UNIT/ML 1 ML VIAL SUBCUT SCH ×3 (06:58→21:36)
--- NOTE | 2019-10-21 08:40 | PDOC CRITICAL CARE PROG REPORT ---
General Date:: 10/21/19 ICU Day:: 3 Hospital Day:: 3 Resuscitation Status: Full Code Medical Power of Taker Off Braker Machine: SonJamar Events in the past 12 to 24 Hours:: 10.21.2019: Patient continues to show steady improvement in overall function. She was started on fluoxetine to assist with improvement in motor recovery. No official Fugl-Reyes Motor Assessment has been done given the acuity. No hemodynamic instability. No worsening neurologic function. 10.20.2019: Patient admitted overnight because of nondominant hemisphere ischemic stroke symptoms. Her NIH score was 8 on admission as noted in our documentation. She was started on heparin because of atrial fibrillation but this is been discontinued because of the high PTT and the concern for risk of bleeding. She denies any headache. On admission yesterday she had some mild chest discomfort with atrial fibrillation and this has improved. With Cardizem her heart rate did drop to almost 40 and she has been transitioned off this. Her NIHSS stroke scale did not worsen and her hypertension has improved Review of systems relevant to events:: 10.21.2019: X-ray of the right humerus shows no fracture. Ultrasound shows no clot but a mild fluid extravasation in the antecubital area does not appear to be abscess and may be infiltration. Heparin chemical prophylaxis is present but no active anticoagulation is present given the acuity of the stroke. We are still awaiting echo and carotid studies. Denies headache, chest pain, shortness of breath. She still has intermittent atrial fibrillation but rates less than 110 with beta-leah therapy. 10.20.2019: Blood pressure and heart rate are under better control. She did require 1 dose of labetalol for blood pressure last evening. Given 1 dose of Lopressor this morning because of an elevation in ventricular rate. Patient has improvement in her left arm and left leg movement. She denies headache, visual changes, chest pain, shortness of breath or bleeding Reason for ICU Addmission:: Acute Stroke - Medications: Medications reviewed and adjusted accordingly: Yes Physical Exam Vital Signs: Temp Pulse Resp BP Pulse Ox 97.0 F 95 19 139/99 H 95 10/21/19 06:00 10/21/19 04:00 10/21/19 06:31 10/21/19 06:31 10/21/19 06:31 Intake & Output 10/20/19 10/21/19 10/22/19 06:59 06:59 06:59 Intake Total 0 135 Output Total 30 660 Balance -30 -525 Weight 75.5 kg 74 kg Weight/Height Weight 74 kg Height 4 ft 11 in General appearance: PRESENT: no acute distress, morbidly obese, well-nourished Exam: Pleasant nontoxic 74-year-old female morbidly obese no acute distress, awake and alert and oriented x4 Eye exam: PRESENT: EOMI, PERRLA. ABSENT: conjunctival injection, nystagmus, scleral icterus Ear exam: PRESENT: normal external ear exam Mouth exam: PRESENT: moist, neck supple Teeth exam: PRESENT: edentulous Neck exam: ABSENT: carotid bruit, JVD, lymphadenopathy, tenderness, thyromegaly, tracheal deviation Respiratory exam: PRESENT: clear to auscultation rocky, unlabored. ABSENT: accessory muscle use, rales, rhonchi, tachypnea, wheezes Cardiovascular exam: PRESENT: irregular rhythm Pulses: ABSENT: normal dorsalis pedis pul Vascular exam: PRESENT: normal capillary refill. ABSENT: pallor GI/Abdominal exam: PRESENT: normal bowel sounds, soft. ABSENT: ascites, distended, guarding, mass, organolmegaly, rebound, tenderness Rectal exam: PRESENT: deferred Gentrourinary exam: ABSENT: indwelling catheter Extremities exam: PRESENT: +1 edema, other - right arm eccymosis without hematoma. Slightly tender. ROM intact Musculoskeletal exam: ABSENT: deformity, dislocation Neurological exam: PRESENT: alert, awake, oriented to person, oriented to place, oriented to time, oriented to situation, motor sensory deficit, other - NIHSS-3. Points on dysarthria and partial facial paralysis. Motor strenght in both uppe r/lower left extremity 3/5. Significant resolve of limb ataxia. ABSENT: CN II- XII grossly intact Psychiatric exam: PRESENT: appropriate affect, normal mood Focused psych exam: PRESENT: pressured speech. ABSENT: psychomotor agitation, restlessness Skin exam: PRESENT: dry, intact, warm, other - Eccymosis to right arm,. ABSENT: cyanosis, rash Tubes/Lines: ABSENT: Endotracheal Tube, Chest Tube, Central Line, Arterial Catheter, Dialysis catheter, Peg Tube, Nasogastic Tube, Other Laboratory/Radiographs Laboratory Results: 10/21/19 04:23 10/21/19 04:23 10/20/19 10/21/19 10/21/19 18:25 04:23 04:23 WBC 4.7 RBC 3.64 L Hgb 11.5 L Hct 34.5 L MCV 95 MCH 31.7 MCHC 33.5 RDW 14.1 H Plt Count 75 L Seg Neutrophils % 39.2 L Sodium 138.7 Potassium 4.2 Chloride 111 H Carbon Dioxide 23 Anion Gap 5 BUN 15 Creatinine 1.00 Est GFR ( Amer) > 60 Glucose 81 Calcium 8.5 Phosphorus 3.9 Magnesium 1.3 L Urine Color YELLOW Urine Appearance SLIGHTLY-CLOUDY Urine pH 5.0 Ur Specific [place] 1.042 Urine Protein 30 H Urine Glucose (UA) NEGATIVE Urine Ketones NEGATIVE Urine Blood NEGATIVE Urine RBC (Auto) 1 10/19/19 10/19/19 10/19/19 15:01 15:01 22:06 Creatine Kinase 22 L CK-MB (CK-2) 0.55 Troponin I 0.015 0.014 10/20/19 06:15 Creatine Kinase CK-MB (CK-2) Troponin I 0.015 Impressions: Head MRI 10/19/19 00:00 IMPRESSION: MULTIPLE SMALL FOCI OF ACUTE INFARCT WHICH INVOLVES SEGMENTS OF THE RIGHT INSULAR CORTEX, DILLARD RADIATA AND CORTICAL/SUBCORTICAL AREAS IN THE POSTERIOR FRONTAL AND PARIETAL LOBE WELL TWO SMALL FOCI IN THE OCCIPITAL LOBE GENERALIZED ATROPHY WITH PERIVENTRICULAR WHITE MATTER DISEASE AND MICROVASCULAR ISCHEMIC CHANGES Dr. Salinas was called and notified of the findings at 8:27 PM. Chest X-Ray 10/19/19 14:40 IMPRESSION: Moderate cardiomegaly. No acute cardiopulmonary disease. Hyperinflated lungs which can be seen with obstructive lung disease. Head CT 10/19/19 14:40 IMPRESSION: MILD CHRONIC CHANGES OF ATROPHY AND MICROVASCULAR ISCHEMIA. NO ACUTE PROCESS. EVIDENCE OF ACUTE STROKE: NO. Head CTA 10/19/19 14:59 IMPRESSION: NO CTA EVIDENCE OF STENOSIS OR ANEURYSM OF THE [place] OF [place]. Neck CTA 10/19/19 14:59 IMPRESSION: There is some prominent calcified plaque in the left carotid bulb. There appears to be less than 50% stenosis of the ICA. The right vertebral artery is smaller than the left. Humerus X-Ray 10/20/19 00:00 IMPRESSION: No acute osseous abnormality of the right humerus. Venous Doppler Study 10/20/19 00:00 IMPRESSION: No deep vein thrombosis within the right upper extremity. 5.7 cm subcutaneous fluid collection adjacent to the antecubital fossa, which may represent an area of IV catheter infiltration. 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 (4) Hypertension Qualifiers: Hypertension type: essential hypertension Qualified Code(s): I10 - E ssential (primary) hypertension Is this a current diagnosis for this admission?: Yes (5) Traumatic ecchymosis of right upper arm Qualifiers: Encounter type: initial encounter Qualified Code(s): S40.021A - Contusion of right upper arm, initial encounter Is this a current diagnosis for this admission?: Yes (6) Thrombocytopenia Is this a current diagnosis for this admission?: Yes (7) Obesity (BMI 30-39.9) Is this a current diagnosis for this admission?: Yes (8) UTI (urinary tract infection), uncomplicated Is this a current diagnosis for this admission?: Yes Plan Summary: 10.21.2019: Respiratory: Patient has no further respiratory complaints. Of course given her mild dysphasia she will need to be monitored for aspiration phenomenon. She does have an intact cough and sensation. Appreciate the help of speech therapy. Infectious: Patient has white cells and leukocyte esterase in her urine. She does not have any dysuric symptoms but given her stroke presentation and findings we placed her on Rocephin for 3 days. Continue to monitor her course and care. This is an uncomplicated UTI. Cardiac: Atrial fibrillation is persistent but rate is improved. She will need to be started on anticoagulation 4 days after presentation which would be 10.23.2019 . Have increased Lopressor dosing as well. Parent apparently was on beta-leah therapy but may have not been consistent in utilization. Echocardiogram and carotid studies are still pending. Hematologic: No active issues. She had a robust response to heparin and given her presentation therapeutic heparin has been stopped. Continue on chemo prophylaxis for DVT Endocrine: No active issues. TSH appropriate. Hemoglobin A1c is 5.4 Renal: No active issues creatinine has been stable throughout her course. Metabolic: Electrolytes have been replaced when needed. Continue to monitor. Alimentary: Patient is on modified dysphagia diet. She appears to be tolerating this. Neurologic: Patient stroke syndrome has improved. This is an embolic related stroke given its distribution in the MCA region of the brain on the right. Fortunately this is a nondominant hemisphere and in the last 24 hours she is had dramatic improvement in motor function. She is an excellent candidate for continued physical therapy. I have also started her on fluoxetine which has been noted to help with motor function post stroke. She will need to be maintained on aspirin and started on apixaban prior to discharge. Sedation: None Lines/Tubes: Peripheral IVs. The right antecubital IV which appeared to be infiltrated has been removed Other: Anticipate stepdown transfer to telemetry. Follow-up items include: Echocardiogram studies, carotid artery studies, physical therapy evaluation and treatment with Fugl-Reyes Motor Score assessment prior to discharge. Will attempt to contact family. 10.20.2019: Patient has had right MCA distribution stroke which appears to be related to embolic phenomena most likely atrial fibrillation. She has had an abnormal response to heparin and given the conflicting findings of acute treatment of stroke and A. fib have discontinued and will continue aspirin and subcutaneous heparin prophylaxis. Patient will need oral anticoagulation therapy (i.e. apixaban) before discharge. Preference is on day 4. Her NIHHS has improved to 4 and will continue to monitor her in the ICU. There is no definitive need for any intervention given the latency of her presentation and lack of CT findings consistent with acute thrombus. Have discussed her speech evaluation and have made diet modifications Physical therapy has also evaluated the patient. Some of her restrictions will also be synergistically related to her obesity and she will need aggressive rehab. Have started statin therapy as well as aspirin. We will continue supportive care in the ICU and maintain her in a neuro critical care ICU status to assure complete stabilization of her neurological function. Given the history of urinary tract infections that often accompany strokes women will check urinalysis. Perfunctory studies including echo, carotid artery evaluation and blood work have been done and will be treated and evaluated accordingly. Discussed case and care with the patient's son Critical Time Critical Time (minutes): 0 - [id number] Level of Care: TELE Anticipated discharge: Acute Rehab Within: within 36 hours -: 1. The care of a critical patient is a dynamic process. This note is a field sales representative synopsis but static in nature. The timeframe for treatments given in order is not necessarily the actual time these treatments may have been done. 2. This patient requires critical care secondary to ongoing requirements for therapy not offered or safe outside the critical care environment. Transfer to a lower level of care will result in altered life or limb morbidity and mor tality. 3. Multidisciplinary rounds completed. 4. ABCDE bundle addressed.
[2019-10-21] MEDS ORDERED: GABAPENTIN 300 MG CAPSULE PO SCH (10:00)
[2019-10-21] MEDS: HYDROCHLOROTHIAZIDE 12.5 MG TABLET PO SCH (11:29)
[2019-10-21] MEDS: FLUOXETINE HCL 20 MG CAPSULE PO SCH (11:30)
[2019-10-21] MEDS: ASPIRIN 81 MG TABLET, ENT COATED PO SCH (11:30)
[2019-10-21] MEDS: CEFTRIAXONE 1 GM/D5W RTU 1 GM/50 ML RTUPB IV SCH (11:30)
[2019-10-21] MEDS: GABAPENTIN 100 MG CAPSULE PO SCH ×3 (11:30→18:35)
[2019-10-21] MEDS: METOPROLOL TARTRATE 25 MG TABLET PO SCH ×2 (11:30→21:36)
[2019-10-21] MEDS: ATORVASTATIN CALCIUM 80 MG TABLET PO SCH (21:37)
[2019-10-22 05:22] LABS: ABSOLUTE BASOPHILS # (AUTO) 0.1 10^3/uL (0.0-0.2); ABSOLUTE EOSINOPHILS # (AUTO) 0.3 10^3/uL (0.0-0.6); ABSOLUTE LYMPHOCYTES (AUTO) 2.2 10^3/uL (0.5-4.7); ABSOLUTE MONOCYTES (AUTO) 0.5 10^3/uL (0.1-1.4); ABSOLUTE NEUT (AUTO) 2.2 10^3/uL (1.7-8.2); BASOPHILS % (AUTO) 1.3 % (0-2); EOSINOPHILS % (AUTO) 5.8 % (0-6); HEMATOCRIT 36.3 % (36.0-47.0); HEMOGLOBIN 12.2 g/dL (12.0-15.5); LYMPHOCYTES % (AUTO) 41.9 % (13-45); MEAN CORPUSCULAR HEMOGLOBIN 31.6 pg (27.0-33.4); MEAN CORPUSCULAR HGB CONC 33.7 g/dL (32.0-36.0); MEAN CORPUSCULAR VOLUME 94 fl (80-97); RED BLOOD COUNT 3.88 10^6/uL (3.72-5.28); RED CELL DISTRIBUTION WIDTH 14.4 % (11.5-14.0); TOTAL CELLS COUNTED % (AUTO) 100 %; WHITE BLOOD COUNT 5.3 10^3/uL (4.0-10.5)
[2019-10-22 05:26] LABS: PLATELET COUNT 87 10^3/uL (150-450)
[2019-10-22 05:38] LABS: ANION GAP 7 (5-19); BLOOD UREA NITROGEN 16 mg/dL (7-20); CALCIUM 8.6 mg/dL (8.4-10.2); CARBON DIOXIDE 23 mmol/L (22-30); CHLORIDE 108 mmol/L (98-107); GLUCOSE 87 mg/dL (75-110); PHOSPHORUS 3.7 mg/dL (2.5-4.5)
[2019-10-22] MEDS: HEPARIN SOD (PORCINE) 5,000 UNIT/ML 1 ML VIAL SUBCUT SCH ×2 (06:07→13:02)
[2019-10-22] MEDS: HYDROCHLOROTHIAZIDE 12.5 MG TABLET PO SCH (10:12)
[2019-10-22] MEDS: GABAPENTIN 100 MG CAPSULE PO SCH ×3 (10:12→17:06)
[2019-10-22] MEDS: CEFTRIAXONE 1 GM/D5W RTU 1 GM/50 ML RTUPB IV SCH (10:13)
[2019-10-22] MEDS: METOPROLOL TARTRATE 25 MG TABLET PO SCH ×2 (10:13→21:55)
[2019-10-22] MEDS: ASPIRIN 81 MG TABLET, ENT COATED PO SCH (10:13)
[2019-10-22] MEDS: FLUOXETINE HCL 20 MG CAPSULE PO SCH (10:13)
--- NOTE | 2019-10-22 14:20 | XCELERA REPORT ---
[address] [address] Transthoracic Echocardiogram Report Name: DORA FLORES Age: 74 yrs Gender: Female : 1945 Patient Status: Inpatient Patient Location: ICU^610^A Study Date: 10/22/2019 07:37 AM Height: 59 in Weight: 164 lb BSA: 1.7 m2 Procedure: A two-dimensional transthoracic echocardiogram with color flow and Doppler was performed. The study was technically difficult with many images being suboptimal in quality. Reason For Study: stroke symptoms, new onset afib, PLEASE DO BUBBLE History: CVA / ATRIAL fIBRILLATION. Ordering Physician: RANJAN NOLASCO Performed By: Leslie Zhu Interpretation Summary The left ventricle is normal in size. There is normal left ventricular wall thickness. LV EF is 25% TO 30% There is moderate to severe global hypokinesis of the left ventricle. There is no thrombus. NO ASD ,VSD , OR PFO SEEN.BUBBLE STUDY NEGATIVE FOR INTRACARDIAC SHUNTS. The right atrium is mildly dilated. The left atrium is moderately dilated. There is no evidence of mitral valve prolapse. There is no vegetation seen on the mitral valve. There is no mitral valve stenosis. There is a moderate amount of mitral regurgitation There is no aortic valvular vegetation. There is no aortic valve stenosis There is no LVOT obstruction. No aortic regurgitation is present. There is no tricuspid stenosis. There is a mild to moderate amount of tricuspid regurgitation There are 2 jets of TR.RVSP is 34 to 39 mm of Hg , with RA mean of 5 to 10. There is mild pulmonary hypertension by echo There is no pulmonic valvular stenosis. There is no pulmonic valvular regurgitation. The aortic root is normal size. The inferior vena cava appeared normal and decreased > 50% with respiration (RAP 5-10 mmHg) There is no pericardial effusion. MMode/2D Measurements & Calculations RVDd: 2.4 cm LVIDd: 4.3 cm FS: 9.3 % Ao root diam: 2.5 cm IVSd: 1.1 cm LVIDs: 3.9 cm EDV(Teich): Ao root area: LVPWd: 1.1 cm 83.5 ml 4.8 cm2 ESV(Teich): 66.1 ml EF(Teich): 20.7 % EDV(MOD-sp4): SV(MOD-sp4): 56.6 ml 19.2 ml ESV(MOD-sp4): 37.4 ml EF(MOD-sp4): 33.9 % Doppler Measurements & Calculations Ao V2 max: LV V1 max PG: PA V2 max: PI end-d bobby: 137.2 cm/sec 4.1 mmHg 102.5 cm/sec 103.0 cm/sec Ao max P.5 mmHg LV V1 max: PA max P.0 cm/sec 4.2 mmHg TR max bobby: 270.6 cm/sec TR max P.3 mmHg Left Ventricle The left ventricle is normal in size. There is normal left ventricular wall thickness. LV EF is 25% TO 30%. LV diastolic function could not be adequately assessed due to atrial fibrilation. There is moderate to severe global hypokinesis of the left ventricle. There is no thrombus. NO ASD ,VSD , OR PFO SEEN.BUBBLE STUDY NEGATIVE FOR INTRACARDIAC SHUNTS. Right Ventricle The right ventricle is normal in size and function. Atria The right atrium is mildly dilated. The left atrium is moderately dilated. Mitral Valve There is no evidence of mitral valve prolapse. There is no vegetation seen on the mitral valve. There is no mitral valve stenosis. There is a moderate amount of mitral regurgitation. Aortic Valve There is no aortic valvular vegetation. There is no aortic valve stenosis. There is no LVOT obstruction. No aortic regurgitation is present. Tricuspid Valve There is no tricuspid stenosis. There is a mild to moderate amount of tricuspid regurgitation. There are 2 jets of TR.RVSP is 34 to 39 mm of Hg , with RA mean of 5 to 10. There is mild pulmonary hypertension by echo. Pulmonic Valve There is no pulmonic valvular stenosis. There is no pulmonic valvular regurgitation. Great Vessels The aortic root is normal size. The inferior vena cava appeared normal and decreased > 50% with respiration (RAP 5-10 mmHg). Effusions There is no pericardial effusion. : RANJAN NOLASCO, Yamsine
--- NOTE | 2019-10-22 15:29 | RADIOLOGY REPORT (SQ) ---
EXAM DESCRIPTION: CAROTID DOPPLER IMAGES COMPLETED DATE/TIME: 10/22/2019 11:27 am REASON FOR STUDY: Stroke symptoms COMPARISON: 10/19/2019 TECHNIQUE: Grayscale ultrasound, Doppler velocity and spectra, and color Doppler images acquired of the extra-cranial carotid and vertebral arteries. Images stored on PACS. LIMITATIONS: None. FINDINGS: RIGHT CAROTID CCA Velocities: Within normal limits. ICA Velocities Peak systolic 87 cm/s. End diastolic 28 cm/s. Proximal ICA/CCA peak systolic ratio 1.38. Scattered heterogeneous hypoechoic plaque at the carotid bulb with less than 50% luminal stenosis on grayscale evaluation. LEFT CAROTID CCA Velocities: Within normal limits. ICA Velocities Peak systolic 70 cm/s. End diastolic 21 cm/s. Proximal ICA/CCA peak systolic ratio 0.88. Spectra normal. No significant plaque. VERTEBRAL ARTERIES: Antegrade flow. Normal waveforms. SUBCLAVIAN ARTERIES: Not imaged. OTHER: No other significant finding. IMPRESSION: 1. No hemodynamically significant stenosis. 2. Antegrade vertebral arteries. COMMENT: Quality ID #[id number]: Velocity criteria are extrapolated from the diameter data as defined by t he Society of Radiologists in Ultrasound Consensus Conference. Radiology 2003: 229; 340-346. TECHNICAL DOCUMENTATION: JOB ID: [id number] 2010 [employer]- All Rights Reserved Reading location - IP/workstation name: [email or web address]
--- NOTE | 2019-10-22 16:30 | PDOC CRITICAL CARE PROG REPORT ---
General Date:: 10/22/19 ICU Day:: 4 Hospital Day:: 4 Resuscitation Status: Full Code Medical Power of Pediatric Speech Therapist: Jamar Mackenzie Events in the past 12 to 24 Hours:: 10.22.2019: Patient continues to improve in the expected trajectory. She has had no chest pain or shortness of breath. Patient was able to ambulate with physical therapy without difficulty. Has had no coughing with eating. 10.21.2019: Patient continues to show steady improvement in overall function. She was started on fluoxetine to assist with improvement in motor recovery. No official Fugl-Reyes Motor Assessment has been done given the acuity. No hemodynamic instability. No worsening neurologic function. 10.20.2019: Patient admitted overnight because of nondominant hemisphere ischemic stroke symptoms. Her NIH score was 8 on admission as noted in our documentation. She was started on heparin because of atrial fibrillation but this is been discontinued because of the high PTT and the concern for risk of bleeding. She denies any headache. On admission yesterday she had some mild chest discomfort with atrial fibrillation and this has improved. With Cardizem her heart rate did drop to almost 40 and she has been transitioned off this. Her NIHSS stroke scale did not worsen and her hypertension has improved Review of systems relevant to events:: 10.22.2019: Notably patient's platelets have dropped and heparin (prophylaxis) has been held. She has had no bleeding. Echocardiogram and carotid studies have been reviewed. Patient has reduced ejection fraction with atrial fibrillation. She denies headache, shortness of breath, no changes, swallowing. No clot evident on carotid studies or significant stenosis. Ultrasound of the right upper arm shows no DVT 10.21.2019: X-ray of the right humerus shows no fracture. Ultrasound shows no clot but a mild fluid extravasation in the antecubital area does not appear to be abscess and may be infiltration. Heparin chemical prophylaxis is present but no active anticoagulation is present given the acuity of the stroke. We are still awaiting echo and carotid studies. Denies headache, chest pain, shortness of breath. She still has intermittent atrial fibrillation but rates less than 110 with beta-leah therapy. 10.20.2019: Blood pressure and heart rate are under better control. She did require 1 dose of labetalol for blood pressure last evening. Given 1 dose of Lopressor this morning because of an elevation in ventricular rate. Patient has improvement in her left arm and left leg movement. She denies headache, visual changes, chest pain, shortness of breath or bleeding Reason for ICU Addmission:: Acute Stroke - Medications: Medications reviewed and adjusted accordingly: Yes Physical Exam Vital Signs: Temp Pulse Resp BP Pulse Ox 98 F 101 H 18 107/78 95 10/22/19 04:00 10/22/19 12:00 10/22/19 14:00 10/22/19 14:00 10/22/19 14:00 Intake & Output 10/21/19 10/22/19 10/23/19 06:59 06:59 06:59 Intake Total 135 250 50 Output Total 660 100 150 Balance -525 150 -100 Weight 74 kg 78.1 kg Weight/Height Weight 78.1 kg Height 4 ft 11 in General appearance: PRESENT: no acute distress, morbidly obese Exam: Pleasant nontoxic 74 white female no active distress. She is awake alert and oriented x4 Head exam: PRESENT: atraumatic, normocephalic Eye exam: PRESENT: conjunctiva pink, EOMI, PERRLA. ABSENT: nystagmus, scleral icterus Mouth exam: PRESENT: moist, neck supple Teeth exam: PRESENT: edentulous Neck exam: ABSENT: carotid bruit, JVD, lymphadenopathy, thyromegaly Respiratory exam: PRESENT: clear to auscultation rocky, unlabored. ABSENT: accessory muscle use, rales, rhonchi, tachypnea, wheezes Cardiovascular exam: PRESENT: irregular rhythm. ABSENT: tachycardia Pulses: ABSENT: normal dorsalis pedis pul Vascular exam: PRESENT: normal capillary refill. ABSENT: pallor GI/Abdominal exam: PRESENT: normal bowel sounds, soft. ABSENT: ascites, distended, guarding, mass, organolmegaly, rebound, tenderness Rectal exam: PRESENT: deferred Gentrourinary exam: ABSENT: indwelling catheter Extremities exam: PRESENT: +1 edema Musculoskeletal exam: ABSENT: deformity, dislocation Neurological exam: PRESENT: alert, awake, oriented to person, oriented to place, oriented to time, oriented to situation, other - Patient has mild nasolabial fold changes with mild paralysis on the left. Dysarthria has improved. Motor strength in the left lower and left upper extremity is improved to 3-4 over 5. There is some mild sensory loss.. ABSENT: CN II-XII grossly intact, motor sensory deficit Psychiatric exam: PRESENT: appropriate affect, normal mood Focused psych exam: ABSENT: pressured speech, psychomotor agitation, restlessness Skin exam: PRESENT: dry, intact, warm. ABSENT: cyanosis, rash Tubes/Lines: ABSENT: Endotracheal Tube, Chest Tube, Central Line, Arterial Catheter, Dialysis catheter, Peg Tube, Nasogastic Tube, Other Laboratory/Radiographs Laboratory Results: 10/22/19 05:05 10/22/19 05:05 10/22/19 10/22/19 05:05 05:05 WBC 5.3 RBC 3.88 Hgb 12.2 Hct 36.3 MCV 94 MCH 31.6 MCHC 33.7 RDW 14.4 H Plt Count 87 L Seg Neutrophils % 41.0 L Sodium 137.7 Potassium 4.0 Chloride 108 H Carbon Dioxide 23 Anion Gap 7 BUN 16 Creatinine 1.02 Est GFR ( Amer) > 60 Glucose 87 Calcium 8.6 Phosphorus 3.7 Magnesium 1.4 L 10/20/19 18:25 Clean Catch Midstream Urine Culture - Final Escherichia Coli 10/19/19 10/19/19 10/19/19 15:01 15:01 22:06 Creatine Kinase 22 L CK-MB (CK-2) 0.55 Troponin I 0.015 0.014 10/20/19 06:15 Creatine Kinase CK-MB (CK-2) Troponin I 0.015 Impressions: Head MRI 10/19/19 00:00 IMPRESSION: MULTIPLE SMALL FOCI OF ACUTE INFARCT WHICH INVOLVES SEGMENTS OF THE RIGHT INSULAR CORTEX, DILLARD RADIATA AND CORTICAL/SUBCORTICAL AREAS IN THE POSTERIOR FRONTAL AND PARIETAL LOBE WELL TWO SMALL FOCI IN THE OCCIPITAL LOBE GENERALIZED ATROPHY WITH PERIVENTRICULAR WHITE MATTER DISEASE AND MICROVASCULAR ISCHEMIC CHANGES Dr. Salinas was called and notified of the findings at 8:27 PM. Chest X-Ray 10/19/19 14:40 IMPRESSION: Moderate cardiomegaly. No acute cardiopulmonary disease. Hyperinflated lungs which can be seen with obstructive lung disease. Head CT 10/19/19 14:40 IMPRESSION: MILD CHRONIC CHANGES OF ATROPHY AND MICROVASCULAR ISCHEMIA. NO ACUTE PROCESS. EVIDENCE OF ACUTE STROKE: NO. Head CTA 10/19/19 14:59 IMPRESSION: NO CTA EVIDENCE OF STENOSIS OR ANEURYSM OF THE MODOC OF TSANG. Neck CTA 10/19/19 14:59 IMPRESSION: There is some prominent calcified plaque in the left carotid bulb. There appears to be less than 50% stenosis of the ICA. The right vertebral artery is smaller than the left. Humerus X-Ray 10/20/19 00:00 IMPRESSION: No acute osseous abnormality of the right humerus. Venous Doppler Study 10/20/19 00:00 IMPRESSION: No deep vein thrombosis within the right upper extremity. 5.7 cm subcutaneous fluid collection adjacent to the antecubital fossa, which may represent an area of IV catheter infiltration. Carotid Doppler Study 10/22/19 00:00 IMPRESSION: 1. No hemodynamically significant stenosis. 2. Antegrade vertebral arteries. 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 Is this a current diagnosis for this admission?: Yes (2) Acute ischemic right MCA stroke Is this a current diagnosis for this admission?: Yes (3) Atrial fibrillation Qualifiers: Atrial fibrillation type: other persistent Qualified Code(s): I48.19 - Other persistent atrial fibrillation Is this a current diagnosis for this admission?: Yes (4) Hypertension Qualifiers: Hypertension type: essential hypertension Qualified Code(s): I10 - Essential (primary) hypertension Is this a current diagnosis for this admission?: Yes (5) Traumatic ecchymosis of right upper arm Qualifiers: Encounter type: initial encounter Qualified Code(s): S40.021A - Contusion of right upper arm, initial encounter Is this a current diagnosis for this admission?: Yes (6) Systolic congestive heart failure Qualifiers: Heart failure chronicity: unspecified Qualified Code(s): I50.20 - Unspecified systolic (congestive) heart failure Is this a current diagnosis for this admission?: Yes Plan: This is newly diagnosed based on echocardiographic findings. Hunt that this is chronic and not acute. Further specification pending cardiology evaluation (7) Thrombocytopenia Is this a current diagnosis for this admission?: Yes (8) Obesity (BMI 30-39.9) Is this a current diagnosis for this admission?: Yes (9) UTI (urinary tract infection), uncomplicated Is this a current diagnosis for this admission?: Yes Plan Summary: 10.22.2019: Respiratory: Current respiratory status is quiescent. Watch for manifestations of heart failure given her reduced EF. Infectious: Patient has UTI and has been placed on Rocephin for a limited number of days. No active sepsis or hemodynamic instability exists. Cardiac: Patient has reduced ejection fraction systolic heart failure mainly affecting the left ventricle. This appears to be chronic and certainly there is no acute CHF. To that end I have placed her on RAMOS inhibitor, diuretic and discontinued hydrochlorothiazide. She may be a candidate for digoxin given her atrial fibrillation but have asked cardiology (Dr. Johnson) to provide opinion vis--vis consult. Will watch electrolytes with the use of Lasix and also blood pressure. Continue beta-leah therapy to control heart rate which is been much improved on current therapy Hematologic: Patient has thrombocytopenia with reduction of less than 50%. Given the need for anticoagulation I have ordered a heparin antibody panel to alleviate any consternation to the use of anticoagulation. Of course will need to follow platelets before this is initiated. The plan was to have started oral anti-factor Xa therapy. Endocrine: No active issues, quiescent Renal: Follow renal function with diuresis and RAMOS inhibitor Metabolic: Follow electrolytes with diuresis and RAMOS inhibitor Alimentary: No active issues Neurologic: Much improved with an NIH SS of 3. Paralysis on the left side is improved to the point that the patient will not need inpatient rehab. Plans are underway for her to go home with her sister and case management is working on this. We will continue her on fluoxetine to help with motor function therapy. Once this has improved this drug can be gently discontinued during a taper. However, given the propensity for depression after stroke it may be also helpful to continue. Watch for hyponatremia with its use. Lines/Tubes: Peripheral IVs, no Fields Other: Patient has been downgraded. Our hope is to be home in 48 hours. She will need cardiology consult follow-up on her thrombocytopenia and the initiat ion of anticoagulation if her platelets improved. She is now off DVT chemical prophylaxis and will need SCDs. 10.21.2019: Respiratory: Patient has no further respiratory complaints. Of course given her mild dysphasia she will need to be monitored for aspiration phenomenon. She does have an intact cough and sensation. Appreciate the help of speech therapy. Infectious: Patient has white cells and leukocyte esterase in her urine. She does not have any dysuric symptoms but given her stroke presentation and findings we placed her on Rocephin for 3 days. Continue to monitor her course and care. This is an uncomplicated UTI. Cardiac: Atrial fibrillation is persistent but rate is improved. She will need to be started on anticoagulation 4 days after presentation which would be 10.23.2019 . Have increased Lopressor dosing as well. Parent apparently was on beta-leah therapy but may have not been consistent in utilization. Echocardiogram and carotid studies are still pending. Hematologic: No active issues. She had a robust response to heparin and given her presentation therapeutic heparin has been stopped. Continue on chemo prophylaxis for DVT Endocrine: No active issues. TSH appropriate. Hemoglobin A1c is 5.4 Renal: No active issues creatinine has been stable throughout her course. Metabolic: Electrolytes have been replaced when needed. Continue to monitor. Alimentary: Patient is on modified dysphagia diet. She appears to be tolerating this. Neurologic: Patient stroke syndrome has improved. This is an embolic related stroke given its distribution in the MCA region of the brain on the right. Fortunately this is a nondominant hemisphere and in the last 24 hours she is had dramatic improvement in motor function. She is an excellent candidate for continued physical therapy. I have also started her on fluoxetine which has been noted to help with motor function post stroke. She will need to be maintained on aspirin and started on apixaban prior to discharge. Sedation: None Lines/Tubes: Peripheral IVs. The right antecubital IV which appeared to be infiltrated has been removed Other: Anticipate stepdown transfer to telemetry. Follow-up items include: Echocardiogram studies, carotid artery studies, physical therapy evaluation and treatment with Fugl-Reyes Motor Score assessment prior to discharge. Will attempt to contact family. 10.20.2019: Patient has had right MCA distribution stroke which appears to be related to embolic phenomena most likely atrial fibrillation. She has had an abnormal response to heparin and given the conflicting findings of acute treatment of stroke and A. fib have discontinued and will continue aspirin and subcutaneous heparin prophylaxis. Patient will need oral anticoagulation therapy (i.e. apixaban) before discharge. Preference is on day 4. Her NIHHS has improved to 4 and will continue to monitor her in the ICU. There is no definitive need for any intervention given the latency of her presentation and lack of CT findings consistent with acute thrombus. Have discussed her speech evaluation and have made diet modifications Physical therapy has also evaluated the patient. Some of her restrictions will also be synergistically related to her obesity and she will need aggressive rehab. Have started statin therapy as well as aspirin. We will continue supportive care in the ICU and maintain her in a neuro critical care ICU status to assure complete stabilization of her neurological function. Given the history of urinary tract infections that often accompany strokes women will check urinalysis. Perfunctory studies including echo, carotid artery evaluation and blood work have been done and will be treated and evaluated accordingly. Discussed case and care with the patient's son Critical Time Critical Time (minutes): 0 - [id number] Level of Care: IMCU Anticipated discharge: Home with Homehealth Within: within 48 hours -: 1. The care of a critical patient is a dynamic process. This note is a representative personal service synopsis but static in nature. The timeframe for treatments given in order is not necessarily the actual time these treatments may have been done. 2. This patient requires critical care secondary to ongoing requirements for therapy not offered or safe outside the critical care environment. Transfer to a lower level of care will result in altered life or limb morbidity and mortality. 3. Multidisciplinary rounds completed. 4. ABCDE bundle addressed.
[2019-10-22] MEDS: FUROSEMIDE 20 MG TABLET PO SCH (17:07)
[2019-10-22] MEDS: ATORVASTATIN CALCIUM 80 MG TABLET PO SCH (21:55)
[2019-10-22] MEDS ORDERED: LISINOPRIL 5 MG TABLET PO SCH (22:00)
--- NOTE | 2019-10-22 22:18 | PDOC CONSULTATION ---
Consultation-Blank Consultation: CARDIOLOGY CONSULTATION by Dr. Yasmine Johnson on 10/22/2019. Patient seen at 6 PM. 60-minute spent on the patient more than 50% of time spent in direct patient care. CONSULT REQUESTING PHYSICIAN: Dr. Hall, mri technologist. 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 She was also found to be in atrial fibrillation. On admission her blood pressure was high. She was placed on Cardizem which brought her heart rate down to in the 40s. Her blood pressure now is controlled. She has a history of intermittent palpitations for several years but has no diagnosis of atrial fibrillation. This is the first documented episode of atrial fibrillation. She has no prior history of TIA or CVA. There is no history of diabetes mellitus. Although she claims no history of pulmonary embolism sleep apnea or COPD or asthma she says she has had bronchial problems. She complains of decreased effort tolerance and increasing dyspnea on exertion which is progressively over the past few years. She is on a beta-leah and is on an ARB. She does not know what her LV ejection fraction is. In spite of this the patient states that she is progressively getting more symptomatic from dyspnea on exertion. There is no history of NC or anginal symptoms. No history of congestive heart failure. Documented. She has intermittent palpitations for few years. She has history of depression. Past Medical History Cardiac Medical History: Reports: Hypertension - meds x 6 years Denies: Myocardial Infarction Pulmonary Medical History: Reports: Bronchitis Denies: Asthma, Chronic Obstructive Pulmonary Disease (COPD), Pneumonia Neurological Medical History: Denies: Seizures Musculoskeltal Medical History: Reports: Arthritis - back Psychiatric Medical History: Reports: Depression Hematology: Reports: Anemia Past Surgical History Past Surgical History: Reports: Appendectomy, Cholecystectomy, Herniorrhaphy, Hysterectomy Family History: Mother had diabetes. There is no coronary artery disease in the family. 1 of her uncles had heart failure. Her father had chronic obstructive pulmonary disease. Resuscitation STATUS: The patient is a full code. Her son is a surrogate healthcare decision maker. - Social History Smoking Status: Never Smoker Frequency of Alcohol Use: Rare Hx Recreational Drug Use: No Drugs: None Hx Prescription Drug Abuse: No - Medication/Allergies Home Medications: Gabapentin 300 mg PO TID 11/19/14 Losartan Potassium 100 mg PO DAILY 11/19/14 Metoprolol Tartrate [Lopressor 50 mg Tablet] 50 mg PO BID 11/19/14 Acetaminophen [Acetaminophen Extra Strength] 500 mg PO DAILYP PRN 10/19/19 Hydrochlorothiazide [Hydrodiuril 12.5 mg Tablet] 12.5 mg PO DAILY 10/19/19 Current Medications Generic Name Dose Route Start Last Admin Trade Name Trixie PRN Reason Stop Dose Admin Acetaminophen 650 mg 10/20/19 12:50 10/20/19 13:03 Tylenol 325 Mg Tablet PO 11/18/19 19:30 650 mg Q4HP PRN Administration FOR BREAKTHROUGH PAIN Aspirin 81 mg 10/20/19 10:00 10/22/19 10:13 Ecotrin 81 Mg Ec Tablet PO 11/19/19 09:59 81 mg DAILY LILLIAN Administration Atorvastatin Calcium 80 mg 10/19/19 22:00 10/22/19 21:55 Lipitor 80 Mg Tablet PO 11/18/19 21:59 80 mg QHS LILLIAN Administration Fluoxetine HCl 20 mg 10/21/19 10:00 10/22/19 10:13 Prozac 20 Mg Capsule PO 11/20/19 09:59 20 mg DAILY LILLIAN Administration Furosemide 20 mg 10/22/19 16:30 10/22/19 17:07 Lasix 20 Mg Tablet PO 11/21/19 16:29 20 mg Q8A LILLIAN Administration Gabapentin 200 mg 10/21/19 10:00 10/22/19 17:06 Neurontin 100 Mg Capsule PO 11/20/19 09:59 200 mg TID LILLIAN Administration Ceftriaxone Sodium/Dextrose 1 gm in 50 mls @ 100 mls/hr 10/21/19 09:00 10/22/19 13:15 Rocephin Rtu 1 Gm/D5w 50 Ml Premix IV 10/24/19 08:59 Infused DAILY LILLIAN Infusion Metoprolol Tartrate 50 mg 10/21/19 10:00 10/22/19 21:55 Lopressor 25 Mg Tablet PO 11/20/19 09:59 50 mg Q12 LILLIAN Administration Discontinued Medications Generic Name Dose Route Start Last Admin Trade Name Trixie PRN Reason Stop Dose Admin Acetaminophen 650 mg 10/19/19 19:31 Tylenol 325 Mg Tablet PO 11/18/19 19:30 Q4HP PRN Temp greater than 101F Aspirin 325 mg 10/19/19 16:17 10/19/19 16:44 Aspirin 325 Mg Tablet PO 10/19/19 16:18 325 mg NOW ONE Administration Atorvastatin Calcium 40 mg 10/19/19 22:00 Lipitor 40 Mg Tablet PO 11/18/19 21:59 QHS LILLIAN Diltiazem HCl 10 mg 10/19/19 18:34 10/19/19 18:54 Cardizem Inj 25 Mg/5 Ml Vial IV 10/19/19 18:35 10 mg NOW ONE Administration Gabapentin 300 mg 10/20/19 14:00 10/20/19 17:18 Neurontin 300 Mg Capsule PO 11/19/19 13:59 300 mg TID LILLIAN Administration Heparin Sodium (Porcine) 4,000 unit 10/19/19 19:44 10/19/19 22:00 Heparin Inj 1,000 Unit/Ml 10 Ml Vial IV 10/19/19 19:45 4,000 unit NOW ONE Administration Heparin Sodium (Porcine) 0 - 12,000 unit 10/19/19 22:45 Heparin Inj 1,000 Unit/Ml 10 Ml Vial IV 11/18/19 22:44 .BOLUS PER PROTOCOL PRN RESPOND TO aPTT VALUE Protocol Heparin Sodium (Porcine) 5,000 unit 10/20/19 22:00 10/22/19 13:02 Heparin Inj 5,000 Units/Ml 1 Ml Vial SUBCUT 11/19/19 21:59 Not Given Q8 LILLIAN Hydrochlorothiazide 12.5 mg 10/20/19 11:30 10/22/19 10:12 Hydrodiuril 12.5 Mg Tablet PO 11/19/19 11:29 12.5 mg DAILY LILLIAN Administration Diltiazem HCl 125 mg in 125 mls @ 0 mls/hr 10/19/19 18:35 10/19/19 21:45 Cardizem Rtu Inj 125 Mg-D5w 125 Ml Premix IV 11/18/19 18:34 Infused CONTINUOUS PRN Titration THIS MED IS NOT "PRN" Protocol Titrate Heparin Sodium/Dextrose 25,000 unit in 250 mls @ 0 mls/hr 10/19/19 19:44 10/20/19 07:28 Heparin Rtu 25,000 Unit/250 Ml D5w Premix IV 11/18/19 19:43 0 unit/kg/hr CONTINUOUS PRN 0 mls/hr THIS MED IS NOT "PRN" Titration Protocol Titrate Potassium Chloride/Water 20 meq in 50 mls @ 25 mls/hr 10/20/19 07:15 10/20/19 12:24 Potassium Chloride Nguyễn 20 Meq/50 Ml IV 10/20/19 11:14 25 ml/hr Q2H LILLIAN 25 mls/hr Administration Labetalol HCl 20 mg 10/19/19 21:50 10/19/19 23:37 Normodyne Inj 20 Mg/4 Ml Syringe IV 11/18/19 21:49 20 mg Q2HP PRN Administration SBP > 180 DBP >100 Lisinopril 2.5 mg 10/22/19 22:00 10/22/19 21:55 Prinivil 5 Mg Tablet PO 11/21/19 21:59 2.5 mg Q12 LILLIAN Administration Metoprolol Tartrate 25 mg 10/20/19 11:15 10/20/19 21:53 Lopressor 25 Mg Tablet PO 11/19/19 11:14 Not Given Q12 LILLIAN Metoprolol Tartrate 5 mg 10/20/19 11:15 10/20/19 12:24 Lopressor Inj/Pf 5 Mg/5 Ml Sdv IV 10/20/19 11:16 5 mg NOW ONE Administration Sodium Chloride 2.5 ml 10/19/19 22:00 10/21/19 06:58 Saline Flush 2.5 Ml Monoject Prefil Syrin IV 11/18/19 21:59 2.5 ml Q8 LILLIAN Administration Allergies/Adverse Reactions: benzocaine [From Hurricaine] Allergy (Severe, Verified 11/20/14 11:22) closed throat,couldn't breathe clonidine [Clonidine] Allergy (Severe, Verified 11/20/14 11:22) seeing things, dizziness pineapple [Pineapple] Allergy (Severe, Verified 11/20/14 11:22) eyes swollen shut Penicillins Allergy (Intermediate, Verified 11/20/14 11:22) swelling scallops Allergy (Severe, Uncoded 11/19/14 09:15) nausea/vomiting Hurricaine Allergy (Uncoded 11/05/14 02:07) REVIEW of SYSTEMS: CONSTITUTIONAL: Denies any fever chills or rigors. Current complaints of generalized fatigue and weakness. HEAD: Denies headaches or head injury. EYES: No history of appropriate diplopia. No history of amaurosis fugax. EARS: No severe hearing loss. No history of tinnitus. No recurrent ear infections. NOSE: No history of nosebleeds. No history of nasal polyps. MOUTH: No history of ulcers in the mouth. No bleeding from the gums. THROAT: No redness of the oropharynx. No dysphagia. No odynophagia. No recurrent sore throats. SKIN: There is no pruritus. There is no alert discoloration of the skin. NECK: No neck pain. No swelling in the neck. LUNGS: No history of wheezing. No history of sleep apnea. No history of pulmonary embolism. No history of cough or sputum production. But the patient states she has a brown tail problems, but states no asthma or COPD. No history of secondhand smoke exposure. No wheezing. HEART: Denies NC or anginal symptoms. No history of syncope. History of intermittent palpitations since many years. At present the patient is found to be in atrial fibrillation. She also has a history of decreased effort intolerance and decreased exercise tolerance. She has dyspnea on exertion walking a few yards. She states this is progressively getting worse. Although she is on a ARB and a beta-leah there is no knowledge that her echocardiogram showed LV dysfunction. She has intermittent increase in her chronic leg edema. Since a few years. She does not complain of PND or orthopnea. She has a history of chronic intermittent palpitations. ABDOMEN: No history of fatty food intolerance. No history of jaundice. No history of altered bowel movements. No history of GI bleed. RENAL: She states in the past she has had problems with renal dysfunction and was seeing Dr. Sommers the line ordering clinician. She has not seen him recently. Recent BUN and creatinine and GFR are within normal limits. He has no symptoms of UTI. There is no hematuria pyuria or dysuria. MUSCULOSKELETAL: History of osteoarthritis present. No history of collagen vascular disease. VASCULAR: No history of DVT. No step-off of her claudication. Hematological: No history of bleeding diathesis or clotting disorders. CATERING STAFF MEMBER: Patient admitted with severe left-sided weakness secondary to embolic CVA. No prior history of CVA. No history of headaches migraines or seizures. PSYCHIATRIC: History of depression present but well controlled. No history of anxiety. No history of homicidal or suicidal ideation. PHYSICAL EXAMINATION: The patient is moderately obese. In no acute distress. Selected Entries 10/22/19 10/22/19 10/22/19 16:01 17:00 18:00 Heart Rate ( 94 86 Monitors) Respiratory 23 H 23 H 18 Rate Blood Pressure 105/83 105/83 Blood Pressure 90 90 Mean O2 Sat by Pulse 97 Oximetry Oxygen Delivery Method ( includes room air) 10/22/19 10/22/19 19:00 19:59 Heart Rate ( Monitors) Respiratory Rate Blood Pressure Blood Pressure Mean O2 Sat by Pulse 98 Oximetry Oxygen Delivery Room Air Method ( includes room air) HEAD: Is atraumatic normocephalic. EYES: Pupils equal round regular reactive to light accommodation. Extraocular movements are normal. There is no conjunctival pallor. There is no scleral icterus. EARS: External auditory canals are clear. Tympanic membranes are intact. NOSE: There is no deviated nasal septum. There is no inflammation nasal mucous membrane. MOUTH: Mucous membranes of the mouth are moist. Tongue is moist. There is no ulcers. There is no bleeding from the gums. THROAT: There is no redness of the oropharynx. There is no exudates. SKIN: There is no skin rashes. There is no petechia or ecchymosis. NECK: Is supple. There is no JVD. Carotids are equal there is no bruit. There is no lymphadenopathy. There is no goiter. There is no accessory muscle respiration use. Trachea central. LUNGS: Is clear to auscultation percussion without any rhonchi rales or wheezing. HEART: S1-S2 is heard. S1 is of variable intensity. There is systolic murmur left sternal border and the apex there is no rub. ABDOMEN: Is obese. Nontender. There is no hepatosplenomegaly. Bowel sounds are well heard. EXTREMITIES: Femorals are deep. Femorals are diminished. Leg pulses are diminished. There is 1+ edema bilaterally. There is no DVT or cellulitis. There is no calf tenderness. CATERING STAFF MEMBER: The patient is conscious awake alert oriented x3 with very mild left-sided weakness. PSYCHIATRIC: Patient judgment insight are intact his affect is normal. Labs- Entire Visit 10/19/19 10/19/19 10/19/19 14:58 15:01 15:01 WBC 8.1 RBC 4.56 Hgb 14.4 Hct 43.2 MCV 95 MCH 31.6 MCHC 33.4 RDW 14.1 H Plt Count 129 L Lymph % (Auto) 19.3 [place] % (Auto) 6.0 Eos % (Auto) 1.8 Baso % (Auto) 1.0 Absolute Neuts (auto) 5.8 Absolute Lymphs (auto) 1.6 Absolute Monos (auto) 0.5 Absolute Eos (auto) 0.1 Absolute Basos (auto) 0.1 Seg Neutrophils % 71.9 PT 15.8 H INR 1.25 APTT 25.5 Sodium Potassium Chloride Carbon Dioxide Anion Gap BUN Creatinine Est GFR ( Amer) Est GFR (MDRD) Non-Af Glucose POC Glucose 134 H Hemoglobin A1c % Calcium Phosphorus Magnesium Total Bilirubin Direct Bilirubin Neonat Total Bilirubin Neonat Direct Bilirubin Neonat Indirect Bili AST ALT Alkaline Phosphatase Creatine Kinase CK-MB (CK-2) Troponin I Total Protein Albumin Triglycerides Cholesterol LDL Cholesterol Direct VLDL Cholesterol HDL Cholesterol TSH Free T4 Free T3 pg/mL Urine Color Urine Appearance Urine pH Ur Specific [place] Urine Protein Urine Glucose (UA) Urine Ketones Urine Blood Urine Nitrite (Reflex) Urine Bilirubin Urine Urobilinogen Leukocyte Esterase Rfl Urine RBC (Auto) U Hyaline Cast (Auto) Urine Bacteria (Auto) Urine WBC (Reflex) Squamous Epi Cells Auto Urine Mucus (Auto) Urine Ascorbic Acid 10/19/19 10/19/19 10/19/19 15:01 15:01 22:06 WBC RBC Hgb Hct MCV MCH MCHC RDW Plt Count Lymph % (Auto) [place] % (Auto) Eos % (Auto) Baso % (Auto) Absolute Neuts (auto) Absolute Lymphs (auto) Absolute Monos (auto) Absolute Eos (auto) Absolute Basos (auto) Seg Neutrophils % PT INR APTT Sodium 139.3 Potassium 4.1 Chloride 108 H Carbon Dioxide 24 Anion Gap 7 BUN 16 Creatinine 1.18 Est GFR ( Amer) 54 L Est GFR (MDRD) Non-Af 45 L Glucose 148 H POC Glucose Hemoglobin A1c % Calcium 9.5 Phosphorus Magnesium Total Bilirubin 0.8 Direct Bilirubin 0.1 Neonat Total Bilirubin Not Reportable Neonat Direct Bilirubin Not Reportable Neonat Indirect Bili Not Reportable AST 26 ALT 10 Alkaline Phosphatase 58 Creatine Kinase 22 L CK-MB (CK-2) 0.55 Troponin I 0.015 0.014 Total Protein 7.5 Albumin 3.9 Triglycerides Cholesterol LDL Cholesterol Direct VLDL Cholesterol HDL Cholesterol TSH Free T4 Free T3 pg/mL Urine Color Urine Appearance Urine pH Ur Specific [place] Urine Protein Urine Glucose (UA) Urine Ketones Urine Blood Urine Nitrite (Reflex) Urine Bilirubin Urine Urobilinogen Leukocyte Esterase Rfl Urine RBC (Auto) U Hyaline Cast (Auto) Urine Bacteria (Auto) Urine WBC (Reflex) Squamous Epi Cells Auto Urine Mucus (Auto) Urine Ascorbic Acid 10/19/19 10/20/19 10/20/19 22:06 04:22 06:15 WBC RBC Hgb Hct MCV MCH MCHC RDW Plt Count Lymph % (Auto) [place] % (Auto) Eos % (Auto) Baso % (Auto) Absolute Neuts (auto) Absolute Lymphs (auto) Absolute Monos (auto) Absolute Eos (auto) Absolute Basos (auto) Seg Neutrophils % PT INR APTT Sodium 142.2 Potassium 3.4 L Chloride 111 H Carbon Dioxide 21 L Anion Gap 10 BUN 18 Creatinine 1.16 Est GFR ( Amer) 56 L Est GFR (MDRD) Non-Af 46 L Glucose 86 POC Glucose Hemoglobin A1c % Calcium 9.1 Phosphorus Magnesium Total Bilirubin 0.8 Direct Bilirubin 0.1 Neonat Total Bilirubin Not Reportable Neonat Direct Bilirubin Not Reportable Neonat Indirect Bili Not Reportable AST 23 ALT 9 Alkaline Phosphatase 44 Creatine Kinase CK-MB (CK-2) Troponin I 0.015 Total Protein 6.9 Albumin 3.4 L Triglycerides 70 Cholesterol 131.10 LDL Cholesterol Direct 82 VLDL Cholesterol 14.0 HDL Cholesterol 36 L TSH 2.25 Free T4 1.30 Free T3 pg/mL 2.57 L Urine Color Urine Appearance Urine pH Ur Specific [place] Urine Protein Urine Glucose (UA) Urine Ketones Urine Blood Urine Nitrite (Reflex) Urine Bilirubin Urine Urobilinogen Leukocyte Esterase Rfl Urine RBC (Auto) U Hyaline Cast (Auto) Urine Bacteria (Auto) Urine WBC (Reflex) Squamous Epi Cells Auto Urine Mucus (Auto) Urine Ascorbic Acid 10/20/19 10/20/19 10/20/19 06:15 06:15 06:15 WBC 7.2 RBC 4.06 Hgb 12.8 Hct 38.2 MCV 94 MCH 31.6 MCHC 33.6 RDW 14.2 H Plt Count 90 L Lymph % (Auto) 36.8 [place] % (Auto) 7.2 Eos % (Auto) 2.3 Baso % (Auto) 0.3 Absolute Neuts (auto) 3.9 Absolute Lymphs (auto) 2.7 Absolute Monos (auto) 0.5 Absolute Eos (auto) 0.2 Absolute Basos (auto) 0.0 Seg Neutrophils % 53.4 PT 17.4 H INR 1.41 APTT > 235.0 H* Sodium Potassium Chloride Carbon Dioxide Anion Gap BUN Creatinine Est GFR ( Amer) Est GFR (MDRD) Non-Af Glucose POC Glucose Hemoglobin A1c % 5.4 Calcium Phosphorus Magnesium Total Bilirubin Direct Bilirubin Neonat Total Bilirubin Neonat Direct Bilirubin Neonat Indirect Bili AST ALT Alkaline Phosphatase Creatine Kinase CK-MB (CK-2) Troponin I Total Protein Albumin Triglycerides Cholesterol LDL Cholesterol Direct VLDL Cholesterol HDL Cholesterol TSH Free T4 Free T3 pg/mL Urine Color Urine Appearance Urine pH Ur Specific [place] Urine Protein Urine Glucose (UA) Urine Ketones Urine Blood Urine Nitrite (Reflex) Urine Bilirubin Urine Urobilinogen Leukocyte Esterase Rfl Urine RBC (Auto) U Hyaline Cast (Auto) Urine Bacteria (Auto) Urine WBC (Reflex) Squamous Epi Cells Auto Urine Mucus (Auto) Urine Ascorbic Acid 10/20/19 10/20/19 10/20/19 07:36 10:24 13:46 WBC RBC Hgb Hct MCV MCH MCHC RDW Plt Count Lymph % (Auto) [place] % (Auto) Eos % (Auto) Baso % (Auto) Absolute Neuts (auto) Absolute Lymphs (auto) Absolute Monos (auto) Absolute Eos (auto) Absolute Basos (auto) Seg Neutrophils % PT 16.6 H INR 1.33 APTT > 235.0 H* 72.4 H 30.1 Sodium Potassium Chloride Carbon Dioxide Anion Gap BUN Creatinine Est GFR ( Amer) Est GFR (MDRD) Non-Af Glucose POC Glucose Hemoglobin A1c % Calcium Phosphorus Magnesium Total Bilirubin Direct Bilirubin Neonat Total Bilirubin Neonat Direct Bilirubin Neonat Indirect Bili AST ALT Alkaline Phosphatase Creatine Kinase CK-MB (CK-2) Troponin I Total Protein Albumin Triglycerides Cholesterol LDL Cholesterol Direct VLDL Cholesterol HDL Cholesterol TSH Free T4 Free T3 pg/mL Urine Color Urine Appearance Urine pH Ur Specific [place] Urine Protein Urine Glucose (UA) Urine Ketones Urine Blood Urine Nitrite (Reflex) Urine Bilirubin Urine Urobilinogen Leukocyte Esterase Rfl Urine RBC (Auto) U Hyaline Cast (Auto) Urine Bacteria (Auto) Urine WBC (Reflex) Squamous Epi Cells Auto Urine Mucus (Auto) Urine Ascorbic Acid 10/20/19 10/21/19 10/21/19 18:25 04:23 04:23 WBC 4.7 RBC 3.64 L Hgb 11.5 L Hct 34.5 L MCV 95 MCH 31.7 MCHC 33.5 RDW 14.1 H Plt Count 75 L Lymph % (Auto) 45.0 [place] % (Auto) 9.8 Eos % (Auto) 5.0 Baso % (Auto) 1.0 Absolute Neuts (auto) 1.9 Absolute Lymphs (auto) 2.1 Absolute Monos (auto) 0.5 Absolute Eos (auto) 0.2 Absolute Basos (auto) 0.0 Seg Neutrophils % 39.2 L PT INR APTT Sodium 138.7 Potassium 4.2 Chloride 111 H Carbon Dioxide 23 Anion Gap 5 BUN 15 Creatinine 1.00 Est GFR ( Amer) > 60 Est GFR (MDRD) Non-Af 55 L Glucose 81 POC Glucose Hemoglobin A1c % Calcium 8.5 Phosphorus 3.9 Magnesium 1.3 L Total Bilirubin Direct Bilirubin Neonat Total Bilirubin Neonat Direct Bilirubin Neonat Indirect Bili AST ALT Alkaline Phosphatase Creatine Kinase CK-MB (CK-2) Troponin I Total Protein Albumin Triglycerides Cholesterol LDL Cholesterol Direct VLDL Cholesterol HDL Cholesterol TSH Free T4 Free T3 pg/mL Urine Color YELLOW Urine Appearance SLIGHTLY-CLOUDY Urine pH 5.0 Ur Specific [place] 1.042 Urine Protein 30 H Urine Glucose (UA) NEGATIVE Urine Ketones NEGATIVE Urine Blood NEGATIVE Urine Nitrite (Reflex) NEGATIVE Urine Bilirubin NEGATIVE Urine Urobilinogen NEGATIVE Leukocyte Esterase Rfl MODERATE H Urine RBC (Auto) 1 U Hyaline Cast (Auto) 1 Urine Bacteria (Auto) 2+ Urine WBC (Reflex) 21 Squamous Epi Cells Auto 2 Urine Mucus (Auto) RARE Urine Ascorbic Acid NEGATIVE 10/22/19 10/22/19 05:05 05:05 WBC 5.3 RBC 3.88 Hgb 12.2 Hct 36.3 MCV 94 MCH 31.6 MCHC 33.7 RDW 14.4 H Plt Count 87 L Lymph % (Auto) 41.9 [place] % (Auto) 10.0 Eos % (Auto) 5.8 Baso % (Auto) 1.3 Absolute Neuts (auto) 2.2 Absolute Lymphs (auto) 2.2 Absolute Monos (auto) 0.5 Absolute Eos (auto) 0.3 Absolute Basos (auto) 0.1 Seg Neutrophils % 41.0 L PT INR APTT Sodium 137.7 Potassium 4.0 Chloride 108 H Carbon Dioxide 23 Anion Gap 7 BUN 16 Creatinine 1.02 Est GFR ( Amer) > 60 Est GFR (MDRD) Non-Af 53 L Glucose 87 POC Glucose Hemoglobin A1c % Calcium 8.6 Phosphorus 3.7 Magnesium 1.4 L Total Bilirubin Direct Bilirubin Neonat Total Bilirubin Neonat Direct Bilirubin Neonat Indirect Bili AST ALT Alkaline Phosphatase Creatine Kinase CK-MB (CK-2) Troponin I Total Protein Albumin Triglycerides Cholesterol LDL Cholesterol Direct VLDL Cholesterol HDL Cholesterol TSH Free T4 Free T3 pg/mL Urine Color Urine Appearance Urine pH Ur Specific [place] Urine Protein Urine Glucose (UA) Urine Ketones Urine Blood Urine Nitrite (Reflex) Urine Bilirubin Urine Urobilinogen Leukocyte Esterase Rfl Urine RBC (Auto) U Hyaline Cast (Auto) Urine Bacteria (Auto) Urine WBC (Reflex) Squamous Epi Cells Auto Urine Mucus (Auto) Urine Ascorbic Acid Head MRI 10/19/19 00:00 IMPRESSION: MULTIPLE SMALL FOCI OF ACUTE INFARCT WHICH INVOLVES SEGMENTS OF THE RIGHT INSULAR CORTEX, DILLARD RADIATA AND CORTICAL/SUBCORTICAL AREAS IN THE POSTERIOR FRONTAL AND PARIETAL LOBE WELL TWO SMALL FOCI IN THE OCCIPITAL LOBE GENERALIZED ATROPHY WITH PERIVENTRICULAR WHITE MATTER DISEASE AND MICROVASCULAR ISCHEMIC CHANGES Dr. Salinas was called and notified of the findings at 8:27 PM. Chest X-Ray 10/19/19 14:40 IMPRESSION: Moderate cardiomegaly. No acute cardiopulmonary disease. Hyperinflated lungs which can be seen with obstructive lung disease. Head CT 10/19/19 14:40 IMPRESSION: MILD CHRONIC CHANGES OF ATROPHY AND MICROVASCULAR ISCHEMIA. NO ACUTE PROCESS. EVIDENCE OF ACUTE STROKE: NO. Head CTA 10/19/19 14:59 IMPRESSION: NO CTA EVIDENCE OF STENOSIS OR ANEURYSM OF THE [place]. Neck CTA 10/19/19 14:59 IMPRESSION: There is some prominent calcified plaque in the left carotid bulb. There appears to be less than 50% stenosis of the ICA. The right vertebral artery is smaller than the left. Humerus X-Ray 10/20/19 00:00 IMPRESSION: No acute osseous abnormality of the right humerus. Venous Doppler Study 10/20/19 00:00 IMPRESSION: No deep vein thrombosis within the right upper extremity. 5.7 cm subcutaneous fluid collection adjacent to the antecubital fossa, which may represent an area of IV catheter infiltration. Carotid Doppler Study 10/22/19 00:00 IMPRESSION: 1. No hemodynamically significant stenosis. 2. Antegrade vertebral arteries. EKG: Shows atrial fibrillation. Left bundle branch block pattern. ECHOCARDIOGRAM: Shows the left ventricle shows moderately to severely reduced LV ejection fraction. Please see report. The echo was interpreted by me. IMPRESSION/RECOMMENDATION: 1. Acute embolic CVA: Patient improving. Agree with anticoagulation. 2. Atrial fibrillation with controlled ventricular response. Note that the patient has a long history of intermittent palpitations. Most likely the patient has had paroxysmal atrial fibrillation. The patient's corrected Marbin vas 2 score is is 5. Hence chronic anticoagulation is indicated. Agree with Eliquis. Continue Lopressor. At present the goal is to control the patient's heart rate. Would consider chemical or electrical cardioversion 6 weeks after the patient being on full anticoagulation therapy. 3. Cardiomyopathy: Note that the patient in the past has been on a ARB and a beta-leah. In spite of this the patient symptomatology suggests that there is no improvement in fact there is deterioration of LV function. Hence would recommend stopping the patient's lisinopril in anticipation of starting the patient on Entresto. Also later about 4 to 6 weeks after the acute CVA would recommend that the patient have a IV Lexiscan Cardiolite stress test to be sure the patient does not have underlying coronary artery disease contributing to the patient's LV dysfunction. Suspected cardiomyopathy might improve if the patient goes back into sinus rhythm. 4. Hypertension: Patient blood pressures on the low normal side. Note on adm ission the patient's blood pressure was very high. 5 obesity: Would recommend the patient have a sleep study. This can be done as an outpatient. Medications reviewed. Medical regimen management plan discussed with attending provider on the case. Medical decision making is of high complexity. 60 minutes spent as patient more than 50% time spent in direct patient care. Will follow
[2019-10-23] MEDS: FUROSEMIDE 20 MG TABLET PO SCH ×2 (02:12→09:11)
[2019-10-23 04:49] LABS: ANION GAP 8 (5-19); BLOOD UREA NITROGEN 16 mg/dL (7-20); CALCIUM 8.8 mg/dL (8.4-10.2); CARBON DIOXIDE 23 mmol/L (22-30); CHLORIDE 107 mmol/L (98-107); GLUCOSE 88 mg/dL (75-110); PHOSPHORUS 3.8 mg/dL (2.5-4.5)
[2019-10-23 04:55] LABS: ABSOLUTE EOSINOPHILS # (AUTO) 0.6 10^3/uL (0.0-0.6); ABSOLUTE LYMPHOCYTES (AUTO) 2.3 10^3/uL (0.5-4.7); ABSOLUTE MONOCYTES (AUTO) 0.6 10^3/uL (0.1-1.4); ABSOLUTE NEUT (AUTO) 2.9 10^3/uL (1.7-8.2); BASOPHILS % (AUTO) 0.2 % (0-2); EOSINOPHILS % (AUTO) 9.2 % (0-6); HEMATOCRIT 35.9 % (36.0-47.0); HEMOGLOBIN 12.2 g/dL (12.0-15.5); LYMPHOCYTES % (AUTO) 35.7 % (13-45); MEAN CORPUSCULAR HEMOGLOBIN 31.5 pg (27.0-33.4); MEAN CORPUSCULAR HGB CONC 33.9 g/dL (32.0-36.0); MEAN CORPUSCULAR VOLUME 93 fl (80-97); MONOCYTES % (AUTO) 9.8 % (3-13); RED BLOOD COUNT 3.86 10^6/uL (3.72-5.28); RED CELL DISTRIBUTION WIDTH 14.2 % (11.5-14.0); SEGMENTED NEUTROPHILS % (AUTO) 45.1 % (42-78); TOTAL CELLS COUNTED % (AUTO) 100 %; WHITE BLOOD COUNT 6.5 10^3/uL (4.0-10.5)
[2019-10-23 04:58] LABS: PLATELET COUNT 99 10^3/uL (150-450)
[2019-10-23] MEDS: CEFTRIAXONE 1 GM/D5W RTU 1 GM/50 ML RTUPB IV SCH (09:11)
[2019-10-23] MEDS: GABAPENTIN 100 MG CAPSULE PO SCH ×3 (09:11→17:20)
[2019-10-23] MEDS: FLUOXETINE HCL 20 MG CAPSULE PO SCH (09:11)
[2019-10-23] MEDS: METOPROLOL TARTRATE 25 MG TABLET PO SCH ×2 (09:11→22:16)
[2019-10-23] MEDS: ASPIRIN 81 MG TABLET, ENT COATED PO SCH (09:11)
--- NOTE | 2019-10-23 13:34 | PDOC CRITICAL CARE PROG REPORT ---
General Date:: 10/23/19 ICU Day:: 5 Hospital Day:: 5 Resuscitation Status: Full Code Medical Power of Prosthetist: Jamar Mackenzie Events in the past 12 to 24 Hours:: 10.23.2019: Patient has been maintained in ICU setting on downgraded IMCU status. This was due to bed capacity and IMCU and the stroke consortium mandates for neurological recovery in a monitored unit. She is tolerating her diet without difficulty. She is tolerating physical therapy. Notably her platelet count has improved. Very appreciative of cardiology insight and consult. 10.22.2019: Patient continues to improve in the expected trajectory. She has had no chest pain or shortness of breath. Patient was able to ambulate with physical therapy without difficulty. Has had no coughing with eating. 10.21.2019: Patient continues to show steady improvement in overall function. She was started on fluoxetine to assist with improvement in motor recovery. No official Fugl-Reyes Motor Assessment has been done given the acuity. No hemodynamic instability. No worsening neurologic function. 10.20.2019: Patient admitted overnight because of nondominant hemisphere ischemic stroke symptoms. Her NIH score was 8 on admission as noted in our documentation. She was started on heparin because of atrial fibrillation but this is been discontinued because of the high PTT and the concern for risk of bleeding. She denies any headache. On admission yesterday she had some mild chest discomfort with atrial fibrillation and this has improved. With Cardizem her heart rate did drop to almost 40 and she has been transitioned off this. Her NIHSS stroke scale did not worsen and her hypertension has improved Review of systems relevant to events:: 10.23.2019: Patient denies chest pain, shortness of breath, headache or visual changes. Blood pressure has been low lower than admission and heart rate has been well controlled on current therapy. Lisinopril, at the request of cardiology, has been discontinued. 10.22.2019: Notably patient's platelets have dropped and heparin (prophylaxis) has been held. She has had no bleeding. Echocardiogram and carotid studies have been reviewed. Patient has reduced ejection fraction with atrial fibrillation. She denies headache, shortness of breath, no changes, swallowing. No clot evid ent on carotid studies or significant stenosis. Ultrasound of the right upper arm shows no DVT 10.21.2019: X-ray of the right humerus shows no fracture. Ultrasound shows no clot but a mild fluid extravasation in the antecubital area does not appear to be abscess and may be infiltration. Heparin chemical prophylaxis is present but no active anticoagulation is present given the acuity of the stroke. We are still awaiting echo and carotid studies. Denies headache, chest pain, shortness of breath. She still has intermittent atrial fibrillation but rates less than 110 with beta-leah therapy. 10.20.2019: Blood pressure and heart rate are under better control. She did require 1 dose of labetalol for blood pressure last evening. Given 1 dose of Lopressor this morning because of an elevation in ventricular rate. Patient has improvement in her left arm and left leg movement. She denies headache, visual changes, chest pain, shortness of breath or bleeding Reason for ICU Addmission:: Acute Stroke Physical Exam Vital Signs: Temp Pulse Resp BP Pulse Ox 97.8 F 88 19 105/77 96 10/23/19 12:00 10/23/19 10:00 10/23/19 10:00 10/23/19 09:22 10/23/19 10:00 Intake & Output 10/22/19 10/23/19 10/24/19 06:59 06:59 06:59 Intake Total 250 50 50 Output Total 100 250 Balance 150 -200 50 Weight 78.1 kg 77.7 kg Weight/Height Weight 77.7 kg Height 4 ft 11 in General appearance: PRESENT: no acute distress, cooperative, morbidly obese Head exam: PRESENT: atraumatic, normocephalic Eye exam: PRESENT: conjunctiva pink, EOMI, PERRLA. ABSENT: nystagmus, scleral icterus Ear exam: PRESENT: normal external ear exam Mouth exam: PRESENT: moist, neck supple, tongue midline Teeth exam: PRESENT: poor dentation Neck exam: ABSENT: carotid bruit, JVD, lymphadenopathy, tenderness, thyromegaly, tracheal deviation Respiratory exam: PRESENT: clear to auscultation rocky, unlabored. ABSENT: accessory muscle use, rales, rhonchi, tachypnea, wheezes Cardiovascular exam: PRESENT: irregular rhythm, other - Ventricular rate controlled Pulses: PRESENT: normal dorsalis pedis pul Vascular exam: PRESENT: normal capillary refill. ABSENT: pallor GI/Abdominal exam: PRESENT: normal bowel sounds, soft. ABSENT: ascites, distended, guarding, mass, organolmegaly, rebound, tenderness Rectal exam: PRESENT: deferred Gentrourinary exam: ABSENT: indwelling catheter Extremities exam: PRESENT: +1 edema Musculoskeletal exam: ABSENT: deformity, dislocation Neurological exam: PRESENT: alert, awake, oriented to person, oriented to place, oriented to time, oriented to situation, motor sensory deficit, other - NIHSS is 2-3 with improving sensation on left and improved facial paralysis.. ABSENT: CN II-XII grossly intact Laboratory/Radiographs Laboratory Results: 10/23/19 04:03 10/23/19 04:03 10/23/19 10/23/19 04:03 04:03 WBC 6.5 RBC 3.86 Hgb 12.2 Hct 35.9 L MCV 93 MCH 31.5 MCHC 33.9 RDW 14.2 H Plt Count 99 L Seg Neutrophils % 45.1 Sodium 137.8 Potassium 4.0 Chloride 107 Carbon Dioxide 23 Anion Gap 8 BUN 16 Creatinine 1.08 Est GFR ( Amer) > 60 Glucose 88 Calcium 8.8 Phosphorus 3.8 Magnesium 1.3 L 10/19/19 10/19/19 10/19/19 15:01 15:01 22:06 Creatine Kinase 22 L CK-MB (CK-2) 0.55 Troponin I 0.015 0.014 10/20/19 06:15 Creatine Kinase CK-MB (CK-2) Troponin I 0.015 Impressions: Head MRI 10/19/19 00:00 IMPRESSION: MULTIPLE SMALL FOCI OF ACUTE INFARCT WHICH INVOLVES SEGMENTS OF THE RIGHT INSULAR CORTEX, DILLARD RADIATA AND CORTICAL/SUBCORTICAL AREAS IN THE POSTERIOR FRONTAL AND PARIETAL LOBE WELL TWO SMALL FOCI IN THE OCCIPITAL LOBE GENERALIZED ATROPHY WITH PERIVENTRICULAR WHITE MATTER DISEASE AND MICROVASCULAR ISCHEMIC CHANGES Dr. Salinas was called and notified of the findings at 8:27 PM. Chest X-Ray 10/19/19 14:40 IMPRESSION: Moderate cardiomegaly. No acute cardiopulmonary disease. Hyperinflated lungs which can be seen with obstructive lung disease. Head CT 10/19/19 14:40 IMPRESSION: MILD CHRONIC CHANGES OF ATROPHY AND MICROVASCULAR ISCHEMIA. NO ACUTE PROCESS. EVIDENCE OF ACUTE STROKE: NO. Head CTA 10/19/19 14:59 IMPRESSION: NO CTA EVIDENCE OF STENOSIS OR ANEURYSM OF THE [place] OF [place]. Neck CTA 10/19/19 14:59 IMPRESSION: There is some prominent calcified plaque in the left carotid bulb. There appears to be less than 50% stenosis of the ICA. The right vertebral artery is smaller than the left. Humerus X-Ray 10/20/19 00:00 IMPRESSION: No acute osseous abnormality of the right humerus. Venous Doppler Study 10/20/19 00:00 IMPRESSION: No deep vein thrombosis within the right upper extremity. 5.7 cm subcutaneous fluid collection adjacent to the antecubital fossa, which may represent an area of IV catheter infiltration. Carotid Doppler Study 10/22/19 00:00 IMPRESSION: 1. No hemodynamically significant stenosis. 2. Antegrade vertebral arteries. 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 Is this a current diagnosis for this admission?: Yes (2) Acute ischemic right MCA stroke Is this a current diagnosis for this admission?: Yes (3) Atrial fibrillation Qualifiers: Atrial fibrillation type: other persistent Qualified Code(s): I48.19 - O ther persistent atrial fibrillation Is this a current diagnosis for this admission?: Yes (4) Hypertension Qualifiers: Hypertension type: essential hypertension Qualified Code(s): I10 - Essential (primary) hypertension Is this a current diagnosis for this admission?: Yes (5) Traumatic ecchymosis of right upper arm Qualifiers: Encounter type: initial encounter Qualified Code(s): S40.021A - Contusion of right upper arm, initial encounter Is this a current diagnosis for this admission?: Yes (6) Systolic congestive heart failure Qualifiers: Heart failure chronicity: unspecified Qualified Code(s): I50.20 - Unspecified systolic (congestive) heart failure Is this a current diagnosis for this admission?: Yes (7) Thrombocytopenia Is this a current diagnosis for this admission?: Yes (8) Obesity (BMI 30-39.9) Is this a current diagnosis for this admission?: Yes (9) UTI (urinary tract infection), uncomplicated Is this a current diagnosis for this admission?: Yes Plan Summary: 10.23.2019: Patient continues to improve in the expected trajectory. Lisinopril has been discontinued and cardiology's plan is to start Entresto and she will need close follow-up with them given her heart failure. This appears to be chronic and not acute. We will continue diuresis and current therapy. Patient's platelet count has improved but she has significant ecchymosis on the right arm. Quite commonly, anticoagulation is started between day 4 and 14. There is some safety in the waiting until discharge and improvement in platelet count before starting anticoagulation Patient to be transferred to [facility] today and I discussed her case and care with the hospitalist service. She appears to be improved enough to tolerate going home with home health services. Anticipate she will need another 24 to 48 hours of hospital care to follow her platelet count and to begin anticoagulation therapy. She did have an E. coli urinary tract infection and has been treated since admission. Today is the last day of this treatment. Will need continued physical therapy follow-up, SCDs and supportive care Follow-up on heparin antibody. Electrolytes have been replaced. Lasix reduced to twice daily dosing in light of the fact that the patient had nocturia 6.15.2020: Respiratory: Current respiratory status is quiescent. Watch for manifestations of heart failure given her reduced EF. Infectious: Patient has UTI and has been placed on Rocephin for a limited number of days. No active sepsis or hemodynamic instability exists. Cardiac: Patient has reduced ejection fraction systolic heart failure mainly affecting the left ventricle. This appears to be chronic and certainly there is no acute CHF. To that end I have placed her on RAMOS inhibitor, diuretic and discontinued hydrochlorothiazide. She may be a candidate for digoxin given her atrial fibrillation but have asked cardiology (Dr. Johnson) to provide opinion vis--vis consult. Will watch electrolytes with the use of Lasix and also blood pressure. Continue beta-leah therapy to control heart rate which is been much improved on current therapy Hematologic: Patient has thrombocytopenia with reduction of less than 50%. Given the need for anticoagulation I have ordered a heparin antibody panel to alleviate any consternation to the use of anticoagulation. Of course will need to follow platelets before this is initiated. The plan was to have started oral anti-factor Xa therapy. Endocrine: No active issues, quiescent Renal: Follow renal function with diuresis and RAMOS inhibitor Metabolic: Follow electrolytes with diuresis and RAMOS inhibitor Alimentary: No active issues Neurologic: Much improved with an NIH SS of 3. Paralysis on the left side is improved to the point that the patient will not need inpatient rehab. Plans are underway for her to go home with her sister and case management is working on this. We will continue her on fluoxetine to help with motor function therapy. Once this has improved this drug can be gently discontinued during a taper. However, given the propensity for depression after stroke it may be also helpful to continue. Watch for hyponatremia with its use. Lines/Tubes: Peripheral IVs, no Fields Other: Patient has been downgraded. Our hope is to be home in 48 hours. She will need cardiology consult follow-up on her thrombocytopenia and the initiation of anticoagulation if her platelets improved. She is now off DVT chemical prophylaxis and will need SCDs. 10.21.2019: Respiratory: Patient has no further respiratory complaints. Of course given her mild dysphasia she will need to be monitored for aspiration phenomenon. She does have an intact cough and sensation. Appreciate the help of speech therapy. Infectious: Patient has white cells and leukocyte esterase in her urine. She does not have any dysuric symptoms but given her stroke presentation and findings we placed her on Rocephin for 3 days. Continue to monitor her course and care. This is an uncomplicated UTI. Cardiac: Atrial fibrillation is persistent but rate is improved. She will need to be started on anticoagulation 4 days after presentation which would be 10.23.2019 . Have increased Lopressor dosing as well. Parent apparently was on beta-leah therapy but may have not been consistent in utilization. Echocardiogram and carotid studies are still pending. Hematologic: No active issues. She had a robust response to heparin and given her presentation therapeutic heparin has been stopped. Continue on chemo prophylaxis for DVT Endocrine: No active issues. TSH appropriate. Hemoglobin A1c is 5.4 Renal: No active issues creatinine has been stable throughout her course. Metabolic: Electrolytes have been replaced when needed. Continue to monitor. Alimentary: Patient is on modified dysphagia diet. She appears to be tolerating this. Neurologic: Patient stroke syndrome has improved. This is an embolic related stroke given its distribution in the MCA region of the brain on the right. Fortunately this is a nondominant hemisphere and in the last 24 hours she is had dramatic improvement in motor function. She is an excellent candidate for continued physical therapy. I have also started her on fluoxetine which has been noted to help with motor function post stroke. She will need to be maintained on aspirin and started on apixaban prior to discharge. Sedation: None Lines/Tubes: Peripheral IVs. The right antecubital IV which appeared to be infiltrated has been removed Other: Anticipate stepdown transfer to telemetry. Follow-up items include: Echocardiogram studies, carotid artery studies, physical therapy evaluation and treatment with Fugl-Reyes Motor Score assessment prior to discharge. Will attempt to contact family. 10.20.2019: Patient has had right MCA distribution stroke which appears to be related to embolic phenomena most likely atrial fibrillation. She has had an abnormal response to heparin and given the conflicting findings of acute treatment of stroke and A. fib have discontinued and will continue aspirin and subcutaneous heparin prophylaxis. Patient will need oral anticoagulation therapy (i.e. apixaban) before discharge. Preference is on day 4. Her NIHHS has improved to 4 and will continue to monitor her in the ICU. There is no definitive need for any intervention given the latency of her presentation and lack of CT findings consistent with acute thrombus. Have discussed her speech evaluation and have made diet modifications Physical therapy has also evaluated the patient. Some of her restrictions will also be synergistically related to her obesity and she will need aggressive rehab. Have started statin therapy as well as aspirin. We will continue supportive care in the ICU and maintain her in a neuro critical care ICU status to assure complete stabilization of her neurological function. Given the history of urinary tract infections that often accompany strokes women will check urinalysis. Perfunctory studies including echo, carotid artery evaluation and blood work have been done and will be treated and evaluated accordingly. Discussed case and care with the patient's son Critical Time Critical Time (minutes): 0 - [id number] Level of Care: IMCU Anticipated discharge: Home with Homehealth Within: within 48 hours -: 1. The care of a critical patient is a dynamic process. This note is a healthcare representative synopsis but static in nature. The timeframe for treatments given in order is not necessarily the actual time these treatments may have been done. 2. This patient requires critical care secondary to ongoing requirements for therapy not offered or safe outside the critical care environment. Transfer to a lower level of care will result in altered life or limb morbidity and mortality. 3. Multidisciplinary rounds completed. 4. ABCDE bundle addressed.
[2019-10-23] MEDS ORDERED: MAGNESIUM SULFATE 4 GM/100 ML RTUPB IV ONE (14:00)
--- NOTE | 2019-10-23 15:57 | Progress Note ---
Provider Note Provider Note: The patient is a 74 year old patient with a past medical history significant for hypertension, chronic atrial fibrillation, systolic CHF, fibromyalgia, and obesity who was admitted to the ICU 10/19/2019 with acute CVA. The patient developed thrombocytopenia while on heparin drip for atrial fibrillation; has been placed on hold. Heparin-induced platelet antibody is pending. She has not yet been started on Eliquis; awaiting for day heparin washout and upward trend of platelets. She is downgraded to IMCU status. Reviewed H&P, Progress notes, Vital Signs, laboratory results, imaging reports, and orders reviewed. Agree with the plan of care as established by the previous provider. Carotid Doppler is negative for hemodynamically significant stenosis. Noted antegrade vertebral arteries. Echocardiogram shows LVEF 25 to 30% with moderate to severe global hypokinesis of the left ventricle. Bubble study is negative for intracardiac shunt. She is noted to have mild pulmonary hypertension. MRI head showed multiple small foci of acute infarcts involving segments to the posterior frontal and parietal lobes; two small foci to the occipital lobe. PT/OT/ST consultations obtained; ambulated 100' w/ RW and stand-by assist. Anticipate d/c home with HH services within 48-72 hours
[2019-10-23] MEDS: ATORVASTATIN CALCIUM 80 MG TABLET PO SCH (22:16)
[2019-10-24 05:03] LABS: ABSOLUTE BASOPHILS # (AUTO) 0.1 10^3/uL (0.0-0.2); ABSOLUTE EOSINOPHILS # (AUTO) 0.5 10^3/uL (0.0-0.6); ABSOLUTE LYMPHOCYTES (AUTO) 1.8 10^3/uL (0.5-4.7); ABSOLUTE MONOCYTES (AUTO) 0.7 10^3/uL (0.1-1.4); BASOPHILS % (AUTO) 1.1 % (0-2); HEMATOCRIT 37.7 % (36.0-47.0); HEMOGLOBIN 12.7 g/dL (12.0-15.5); MEAN CORPUSCULAR HEMOGLOBIN 31.6 pg (27.0-33.4); MEAN CORPUSCULAR HGB CONC 33.8 g/dL (32.0-36.0); MEAN CORPUSCULAR VOLUME 93 fl (80-97); MONOCYTES % (AUTO) 11.6 % (3-13); PLATELET COUNT 100 10^3/uL (150-450); RED BLOOD COUNT 4.04 10^6/uL (3.72-5.28); RED CELL DISTRIBUTION WIDTH 13.9 % (11.5-14.0); SEGMENTED NEUTROPHILS % (AUTO) 49.3 % (42-78); TOTAL CELLS COUNTED % (AUTO) 100 %; WHITE BLOOD COUNT 6.1 10^3/uL (4.0-10.5)
[2019-10-24 05:25] LABS: ANION GAP 8 (5-19); BLOOD UREA NITROGEN 18 mg/dL (7-20); CALCIUM 8.6 mg/dL (8.4-10.2); CARBON DIOXIDE 26 mmol/L (22-30); CHLORIDE 103 mmol/L (98-107); GLUCOSE 94 mg/dL (75-110)
[2019-10-24] MEDS: FUROSEMIDE 20 MG TABLET PO SCH ×2 (06:01→14:49)
[2019-10-24] MEDS ORDERED: FUROSEMIDE 20 MG TABLET PO SCH (10:00)
[2019-10-24] MEDS: FLUOXETINE HCL 20 MG CAPSULE PO SCH (10:06)
[2019-10-24] MEDS: METOPROLOL TARTRATE 25 MG TABLET PO SCH ×2 (10:06→21:42)
[2019-10-24] MEDS: GABAPENTIN 100 MG CAPSULE PO SCH ×3 (10:06→17:26)
[2019-10-24] MEDS: ASPIRIN 81 MG TABLET, ENT COATED PO SCH (10:06)
--- NOTE | 2019-10-24 12:50 | PDOC PROGRESS REPORT ---
Subjective Progress Note for:: 10/24/19 Subjective:: Patient was seen on morning rounds. Found resting in bed, comfortably, on room air. She is A&O x4. She is encouraged by her rapid improvement and speech/swallow and ambulation. She is looking forward to discharging to home; plan to stay with sisters with home health services. She denies headache, dizziness, chest pain, palpitations, dyspnea, orthopnea, abdominal pain, nausea vomiting diarrhea. She is concerned about the cost of her medications at discharge. Otherwise, she has no questions or concerns today. No concerns per nursing. Reason For Visit: AFIB RVR, STROKE LIKE SYMPTOMS Physical Exam Vital Signs: Temp Pulse Resp BP Pulse Ox 98.0 F 116 H 14 119/72 93 10/24/19 07:50 10/24/19 07:50 10/24/19 07:50 10/24/19 07:50 10/24/19 07:50 Intake & Output 10/23/19 10/24/19 10/25/19 06:59 06:59 06:59 Intake Total 50 530 Output Total 250 700 Balance -200 -170 Weight 77.7 kg 74.4 kg General appearance: PRESENT: no acute distress, cooperative, obese, well- developed, well-nourished Head exam: PRESENT: atraumatic, normocephalic Eye exam: PRESENT: conjunctiva pink, EOMI, PERRLA. ABSENT: scleral icterus Mouth exam: PRESENT: moist, tongue midline Teeth exam: PRESENT: poor dentation Respiratory exam: PRESENT: clear to auscultation rocky, symmetrical, unlabored. ABSENT: rales, rhonchi, wheezes Cardiovascular exam: PRESENT: irregular rhythm, +S1, +S2. ABSENT: diastolic murmur, rubs, systolic murmur Pulses: PRESENT: normal dorsalis pedis pul Vascular exam: PRESENT: normal capillary refill Extremities exam: PRESENT: full ROM. ABSENT: calf tenderness, clubbing, pedal edema Neurological exam: PRESENT: alert, awake, oriented to person, oriented to place, oriented to time, oriented to situation, CN II-XII grossly intact, other - Slight left-sided facial droop and slurred speech. No other appreciable deficits.. ABSENT: motor sensory deficit Psychiatric exam: PRESENT: appropriate affect, normal mood. ABSENT: homicidal ideation, suicidal ideation Skin exam: PRESENT: dry, intact, warm. ABSENT: cyanosis, rash Results Laboratory Results: 10/24/19 04:28 10/24/19 04:28 10/24/19 10/24/19 04:28 04:28 WBC 6.1 RBC 4.04 Hgb 12.7 Hct 37.7 MCV 93 MCH 31.6 MCHC 33.8 RDW 13.9 Plt Count 100 L Seg Neutrophils % 49.3 Sodium 137.0 Potassium 4.0 Chloride 103 Carbon Dioxide 26 Anion Gap 8 BUN 18 Creatinine 1.18 Est GFR ( Amer) 54 L Glucose 94 Calcium 8.6 Phosphorus 4.0 Magnesium 2.3 10/19/19 10/19/19 10/19/19 15:01 15:01 22:06 Creatine Kinase 22 L CK-MB (CK-2) 0.55 Troponin I 0.015 0.014 10/20/19 06:15 Creatine Kinase CK-MB (CK-2) Troponin I 0.015 Impressions: Head MRI 10/19/19 00:00 IMPRESSION: MULTIPLE SMALL FOCI OF ACUTE INFARCT WHICH INVOLVES SEGMENTS OF THE RIGHT INSULAR CORTEX, DILLARD RADIATA AND CORTICAL/SUBCORTICAL AREAS IN THE POSTERIOR FRONTAL AND PARIETAL LOBE WELL TWO SMALL FOCI IN THE OCCIPITAL LOBE GENERALIZED ATROPHY WITH PERIVENTRICULAR WHITE MATTER DISEASE AND MICROVASCULAR ISCHEMIC CHANGES Dr. Salinas was called and notified of the findings at 8:27 PM. Chest X-Ray 10/19/19 14:40 IMPRESSION: Moderate cardiomegaly. No acute cardiopulmonary disease. Hyperinflated lungs which can be seen with obstructive lung disease. Head CT 10/19/19 14:40 IMPRESSION: MILD CHRONIC CHANGES OF ATROPHY AND MICROVASCULAR ISCHEMIA. NO ACUTE PROCESS. EVIDENCE OF ACUTE STROKE: NO. Head CTA 10/19/19 14:59 IMPRESSION: NO CTA EVIDENCE OF STENOSIS OR ANEURYSM OF THE [place]. Neck CTA 10/19/19 14:59 IMPRESSION: There is some prominent calcified plaque in the left carotid bulb. There appears to be less than 50% stenosis of the ICA. The right vertebral artery is smaller than the left. Humerus X-Ray 10/20/19 00:00 IMPRESSION: No acute osseous abnormality of the right humerus. Venous Doppler Study 10/20/19 00:00 IMPRESSION: No deep vein thrombosis within the right upper extremity. 5.7 cm subcutaneous fluid collection adjacent to the antecubital fossa, which may represent an area of IV catheter infiltration. Carotid Doppler Study 10/22/19 00:00 IMPRESSION: 1. No hemodynamically significant stenosis. 2. Antegrade vertebral arteries. 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 Noted antegrade vertebral arteries. Echocardiogram shows LVEF 25 to 30% with moderate to severe global hypokinesis of the left ventricle. Bubble study is negative for intracardiac shunt. She is noted to have mild pulmonary hypertension. MRI head showed multiple small foci of acute infarcts involving segments to the posterior frontal and parietal lobes; two small foci to the occipital lobe. Continue daily aspirin and statin therapy. Start Eliquis. PT/OT consulted. Discharge planning consulted. (2) Systolic congestive heart failure Qualifiers: Heart failure chronicity: unspecified Qualified Code(s): I50.20 - Unspecified systolic (congestive) heart failure Is this a current diagnosis for this admission?: Yes Plan: Echocardiogram revealed LVEF 25 to 30% with moderate to severe global hypokinesis of the left ventricle. Dr. Mcdonald is consulted. Awaiting lisinopril washout; plans on starting Entresto on Tuesday. Continues on aspirin and statin therapy. Currently on metoprolol. Cardiac diet. Primary management per Dr. Mcdonald's expertise. (3) Acute ischemic right MCA stroke Is this a current diagnosis for this admission?: Yes Plan: As in #1. (4) Atrial fibrillation Qualifiers: Atrial fibrillation type: other persistent Qualified Code(s): I48.19 - Other persistent atrial fibrillation Is this a current diagnosis for this admission?: Yes Plan: Cardiology is consulted. Chads Vascor 5. We will begin Eliquis as the patient's platelets are now greater than [address] Mcdonald's expertise. (5) Hypertension Qualifiers: Hypertension type: essential hypertension Qualified Code(s): I10 - Essential (primary) hypertension Is this a current diagnosis for this admission?: Yes Plan: Well-controlled at present. Currently receiving metoprolol 50 mg twice daily and furosemide 20 mg twice daily. Cardiac diet. (6) Obesity (BMI 30-39.9) Is this a current diagnosis for this admission?: Yes Plan: Dietary and lifestyle modification are encouraged. Cardiac diet. Registered dietitian is consulted. (7) Traumatic ecchymosis of right upper arm Qualifiers: Encounter type: initial encounter Qualified Code(s): S40.021A - Contusion of right upper arm, initial encounter Is this a current diagnosis for this admission?: Yes (8) UTI (urinary tract infection), uncomplicated Is this a current diagnosis for this admission?: Yes Plan: Resolved Completed course of IV Rocephin (9) Thrombocytopenia Is this a current diagnosis for this admission?: Yes Plan: Trending up; PLT 125-> 75-> 87-> 99-> 100 Heparin gtt was discontinued Heparin induced Plt antibosy is pending Follow up CBC - Time Time Spent with patient: 25-34 minutes Medications reviewed and adjusted accordingly: Yes Anticipated discharge: Home with Homehealth Within: within 72 hours
[2019-10-24] MEDS: APIXABAN 5 MG TABLET PO SCH (17:26)
--- NOTE | 2019-10-24 21:08 | Progress Note ---
Provider Note Provider Note: CARDIOLOGY PROGRESS NOTE by Dr. Yasmine Johnson on 10/24/2019. OBJECTIVE: The patient has no further symptoms of CVA. She is recovering and left-sided weakness is much improved. There is no ventricular arrhythmias seen. She continues to be in atrial fibrillation with controlled ventricular response. There is no chest pain or discomfort. There is no shortness of breath there is no TIA CVA symptoms. There is no pedal edema. PHYSICAL EXAMINATION: The patient is moderately obese. In no acute distress. Selected Entries 10/24/19 10/24/19 10/24/19 07:50 08:00 09:00 Temperature 98.0 F Temperature Oral Source Pulse Rate 116 H Heart Rate ( 88 Monitors) Respiratory 16 Rate Blood Pressure 119/72 Blood Pressure 87 Mean O2 Sat by Pulse 93 94 Oximetry Oxygen Delivery Room Air Method HEAD: Is atraumatic normocephalic. EYES: Pupils equal round regular reactive to light accommodation. Extraocular movements are normal. There is no conjunctival pallor. There is no scleral icterus. EARS: External auditory canals are clear. Tympanic membranes are intact. NOSE: There is no deviated nasal septum. There is no inflammation nasal mucous membrane. MOUTH: Mucous membranes of the mouth are moist. Tongue is moist. There is no ulcers. There is no bleeding from the gums. THROAT: There is no redness of the oropharynx. There is no exudates. SKIN: There is no skin rashes. There is no petechia or ecchymosis. NECK: Is supple. There is no JVD. Carotids are equal there is no bruit. There is no lymphadenopathy. There is no goiter. There is no accessory muscle respiration use. Trachea central. LUNGS: Is clear to auscultation percussion without any rhonchi rales or wheezing. HEART: S1-S2 is heard. S1 is of variable intensity. There is systolic murmur left sternal border and the apex there is no rub. ABDOMEN: Is obese. Nontender. There is no hepatosplenomegaly. Bowel sounds are well heard. EXTREMITIES: Femorals are deep. Femorals are diminished. Leg pulses are diminished. There is 1+ edema bilaterally. There is no DVT or cellulitis. There is no calf tenderness. GUEST SERVICE AIDE: The patient is conscious awake alert oriented x3 with very mild left-sided weakness. PSYCHIATRIC: Patient judgment insight are intact his affect is normal. Labs- All tests 24 hr 10/24/19 10/24/19 04:28 04:28 WBC 6.1 RBC 4.04 Hgb 12.7 Hct 37.7 MCV 93 MCH 31.6 MCHC 33.8 RDW 13.9 Plt Count 100 L Lymph % (Auto) 30.0 [place] % (Auto) 11.6 Eos % (Auto) 8.0 H Baso % (Auto) 1.1 Absolute Neuts (auto) 3.0 Absolute Lymphs (auto) 1.8 Absolute Monos (auto) 0.7 Absolute Eos (auto) 0.5 Absolute Basos (auto) 0.1 Seg Neutrophils % 49.3 Sodium 137.0 Potassium 4.0 Chloride 103 Carbon Dioxide 26 Anion Gap 8 BUN 18 Creatinine 1.18 Est GFR ( Amer) 54 L Est GFR (MDRD) Non-Af 45 L Glucose 94 Calcium 8.6 Phosphorus 4.0 Magnesium 2.3 Head MRI 10/19/19 00:00 IMPRESSION: MULTIPLE SMALL FOCI OF ACUTE INFARCT WHICH INVOLVES SEGMENTS OF THE RIGHT INSULAR CORTEX, DILLARD RADIATA AND CORTICAL/SUBCORTICAL AREAS IN THE POSTERIOR FRONTAL AND PARIETAL LOBE WELL TWO SMALL FOCI IN THE OCCIPITAL LOBE GENERALIZED ATROPHY WITH PERIVENTRICULAR WHITE MATTER DISEASE AND MICROVASCULAR ISCHEMIC CHANGES Dr. Salinas was called and notified of the findings at 8:27 PM. Chest X-Ray 10/19/19 14:40 IMPRESSION: Moderate cardiomegaly. No acute cardiopulmonary disease. Hyperinflated lungs which can be seen with obstructive lung disease. Head CT 10/19/19 14:40 IMPRESSION: MILD CHRONIC CHANGES OF ATROPHY AND MICROVASCULAR ISCHEMIA. NO ACUTE PROCESS. EVIDENCE OF ACUTE STROKE: NO. Head CTA 10/19/19 14:59 IMPRESSION: NO CTA EVIDENCE OF STENOSIS OR ANEURYSM OF THE [place]. Neck CTA 10/19/19 14:59 IMPRESSION: There is some prominent calcified plaque in the left carotid bulb. There appears to be less than 50% stenosis of the ICA. The right vertebral artery is smaller than the left. Humerus X-Ray 10/20/19 00:00 IMPRESSION: No acute osseous abnormality of the right humerus. Venous Doppler Study 10/20/19 00:00 IMPRESSION: No deep vein thrombosis within the right upper extremity. 5.7 cm subcutaneous fluid collection adjacent to the antecubital fossa, which may represent an area of IV catheter infiltration. Carotid Doppler Study 10/22/19 00:00 IMPRESSION: 1. No hemodynamically significant stenosis. 2. Antegrade vertebral arteries. IMPRESSION/RECOMMENDATION: 1. Acute embolic CVA: Patient improving. Agree with anticoagulation. 2. Atrial fibrillation with controlled ventricular response. Note that the patient has a long history of intermittent palpitations. Most likely the patient has had paroxysmal atrial fibrillation. The patient's corrected Marbin vas 2 score is is 5. Hence chronic anticoagulation is indicated. Agree with Eliquis. Continue Lopressor. At present the goal is to control the patient's heart rate. Would consider chemical or electrical cardioversion 6 weeks after the patient being on full anticoagulation therapy. 3. Cardiomyopathy: Note that the patient in the past has been on a ARB and a beta-leah. In spite of this the patient symptomatology suggests that there is no improvement in fact there is deterioration of LV function. Hence would recommend stopping the patient's lisinopril in anticipation of starting the patient on Entresto. Also later about 4 to 6 weeks after the acute CVA would recommend that the patient have a IV Lexiscan Cardiolite stress test to be sure the patient does not have underlying coronary artery disease contributing to the patient's LV dysfunction. Suspected cardiomyopathy might improve if the patient goes back into sinus rhythm. 4. Hypertension: Patient blood pressures on the low normal side. Note on admission the patient's blood pressure was very high. 5 obesity: The patient has symptoms of sleep apnea. Would recommend the patient have a sleep study. This can be done as an outpatient. Medications reviewed. Will add Entresto. Medical decision making is of high complexity since the need for addition of medication. Medical regimen and management plan discussed with attending provider on the case. 40 minutes spent as patient with more than 50% time spent in direct patient care. Will follow.
[2019-10-24] MEDS: ATORVASTATIN CALCIUM 80 MG TABLET PO SCH (21:42)
[2019-10-25 05:33] LABS: HEMATOCRIT 39.3 % (36.0-47.0); HEMOGLOBIN 13.3 g/dL (12.0-15.5); MEAN CORPUSCULAR HEMOGLOBIN 31.6 pg (27.0-33.4); MEAN CORPUSCULAR HGB CONC 33.8 g/dL (32.0-36.0); MEAN CORPUSCULAR VOLUME 94 fl (80-97); PLATELET COUNT 115 10^3/uL (150-450); RED CELL DISTRIBUTION WIDTH 14.1 % (11.5-14.0); WHITE BLOOD COUNT 6.8 10^3/uL (4.0-10.5)
[2019-10-25 05:50] LABS: ANION GAP 7 (5-19); BLOOD UREA NITROGEN 18 mg/dL (7-20); CALCIUM 8.8 mg/dL (8.4-10.2); CARBON DIOXIDE 28 mmol/L (22-30); CHLORIDE 101 mmol/L (98-107); GLUCOSE 99 mg/dL (75-110); POTASSIUM 3.7 mmol/L (3.6-5.0)
[2019-10-25] MEDS: FUROSEMIDE 20 MG TABLET PO SCH ×2 (06:08→18:31)
[2019-10-25] MEDS: SACUBITRIL/VALSARTAN 49 MG/51 MG TABLET PO SCH ×2 (09:40→21:21)
[2019-10-25] MEDS: ASPIRIN 81 MG TABLET, ENT COATED PO SCH (09:40)
[2019-10-25] MEDS: GABAPENTIN 100 MG CAPSULE PO SCH ×4 (09:40→18:31)
[2019-10-25] MEDS: APIXABAN 5 MG TABLET PO SCH ×2 (09:40→18:31)
[2019-10-25] MEDS: FLUOXETINE HCL 20 MG CAPSULE PO SCH (09:40)
[2019-10-25] MEDS: METOPROLOL TARTRATE 25 MG TABLET PO SCH ×2 (09:40→21:21)
--- NOTE | 2019-10-25 13:48 | PDOC PROGRESS REPORT ---
Subjective Progress Note for:: 10/25/19 Subjective:: Patient was seen on morning rounds. Found resting in bed, comfortably, on room air. She is A&O x4. She is encouraged by her rapid improvement and speech/swallow and ambulation; decreased slurred speech today. She is looking forward to discharging to home; plan to stay with sisters with home health services. She does report 2 nights of bilateral leg "numbness" that occurs shortly after taking her atorvastatin and is resolved by the morning. She has to decrease the atorvastatin dose. She denies headache, dizziness, chest pain, palpitations, dyspnea, orthopnea, abdominal pain, nausea vomiting diarrhea. She has no other questions or concerns today. No concerns per nursing. Reason For Visit: AFIB RVR, STROKE LIKE SYMPTOMS Physical Exam Vital Signs: Temp Pulse Resp BP Pulse Ox 97.6 F 100 18 102/79 91 L 10/25/19 11:12 10/25/19 12:00 10/25/19 12:00 10/25/19 12:00 10/25/19 12:00 Intake & Output 10/24/19 10/25/19 10/26/19 06:59 06:59 06:59 Intake Total 530 462 375 Output Total 700 1650 250 Balance -170 -1188 125 Weight 74.4 kg 74.3 kg General appearance: PRESENT: no acute distress, well-developed, well-nourished Head exam: PRESENT: atraumatic, normocephalic Eye exam: PRESENT: conjunctiva pink, EOMI, PERRLA. ABSENT: scleral icterus Mouth exam: PRESENT: moist, tongue midline Respiratory exam: PRESENT: clear to auscultation rocky, symmetrical, unlabored. ABSENT: rales, rhonchi, wheezes Cardiovascular exam: PRESENT: irregular rhythm. ABSENT: diastolic murmur, rubs, systolic murmur Vascular exam: PRESENT: normal capillary refill Extremities exam: PRESENT: full ROM. ABSENT: calf tenderness, clubbing, pedal edema Musculoskeletal exam: PRESENT: ambulatory Neurological exam: PRESENT: alert, awake, oriented to person, oriented to place, oriented to time, oriented to situation, CN II-XII grossly intact, other - Slight left-sided facial droop. ABSENT: motor sensory deficit Psychiatric exam: PRESENT: appropriate affect, normal mood. ABSENT: homicidal ideation, suicidal ideation Skin exam: PRESENT: dry, intact, warm. ABSENT: cyanosis, rash Results Laboratory Results: 10/25/19 04:54 10/25/19 04:54 10/25/19 10/25/19 04:54 04:54 WBC 6.8 RBC 4.20 Hgb 13.3 Hct 39.3 MCV 94 MCH 31.6 MCHC 33.8 RDW 14.1 H Plt Count 115 L Sodium 135.9 L Potassium 3.7 Chloride 101 Carbon Dioxide 28 Anion Gap 7 BUN 18 Creatinine 1.12 Est GFR ( Amer) 58 L Glucose 99 Calcium 8.8 10/19/19 10/19/19 10/19/19 15:01 15:01 22:06 Creatine Kinase 22 L CK-MB (CK-2) 0.55 Troponin I 0.015 0.014 10/20/19 06:15 Creatine Kinase CK-MB (CK-2) Troponin I 0.015 Impressions: Head MRI 10/19/19 00:00 IMPRESSION: MULTIPLE SMALL FOCI OF ACUTE INFARCT WHICH INVOLVES SEGMENTS OF THE RIGHT INSULAR CORTEX, DILLARD RADIATA AND CORTICAL/SUBCORTICAL AREAS IN THE POSTERIOR FRONTAL AND PARIETAL LOBE WELL TWO SMALL FOCI IN THE OCCIPITAL LOBE GENERALIZED ATROPHY WITH PERIVENTRICULAR WHITE MATTER DISEASE AND MICROVASCULAR ISCHEMIC CHANGES Dr. Salinas was called and notified of the findings at 8:27 PM. Chest X-Ray 10/19/19 14:40 IMPRESSION: Moderate cardiomegaly. No acute cardiopulmonary disease. Hyperinflated lungs which can be seen with obstructive lung disease. Head CT 10/19/19 14:40 IMPRESSION: MILD CHRONIC CHANGES OF ATROPHY AND MICROVASCULAR ISCHEMIA. NO ACUTE PROCESS. EVIDENCE OF ACUTE STROKE: NO. Head CTA 10/19/19 14:59 IMPRESSION: NO CTA EVIDENCE OF STENOSIS OR ANEURYSM OF THE [place]. Neck CTA 10/19/19 14:59 IMPRESSION: There is some prominent calcified plaque in the left carotid bulb. There appears to be less than 50% stenosis of the ICA. The right vertebral a rtery is smaller than the left. Humerus X-Ray 10/20/19 00:00 IMPRESSION: No acute osseous abnormality of the right humerus. Venous Doppler Study 10/20/19 00:00 IMPRESSION: No deep vein thrombosis within the right upper extremity. 5.7 cm subcutaneous fluid collection adjacent to the antecubital fossa, which may represent an area of IV catheter infiltration. Carotid Doppler Study 10/22/19 00:00 IMPRESSION: 1. No hemodynamically significant stenosis. 2. Antegrade vertebral arteries. 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 Noted antegrade vertebral arteries. Echocardiogram shows LVEF 25 to 30% with moderate to severe global hypokinesis of the left ventricle. Bubble study is negative for intracardiac shunt. She is noted to have mild pulmonary hypertension. MRI head showed multiple small foci of acute infarcts involving segments to the posterior frontal and parietal lobes; two small foci to the occipital lobe. Continue daily aspirin and statin therapy. Start Eliquis. PT/OT consulted. Discharge planning consulted. (2) Systolic congestive heart failure Qualifiers: Heart failure chronicity: unspecified Qualified Code(s): I50.20 - Unspecified systolic (congestive) heart failure Is this a current diagnosis for this admission?: Yes Plan: Echocardiogram revealed LVEF 25 to 30% with moderate to severe global hypokinesis of the left ventricle. Dr. Mcdonald is consulted. Have started Entresto Continues on aspirin and statin therapy. Currently on metoprolol. Cardiac diet. Primary management per Dr. Mcdonald's expertise. (3) Acute ischemic right MCA stroke Is this a current diagnosis for this admission?: Yes Plan: As in #1. (4) Atrial fibrillation Qualifiers: Atrial fibrillation type: other persistent Qualified Code(s): I48.19 - Other persistent atrial fibrillation Is this a current diagnosis for this admission?: Yes Plan: Cardiology is consulted. Chads Vascor 5. We will begin Eliquis as the patient's platelets are now greater than [address] Mcdonald's expertise. (5) Hypertension Qualifiers: Hypertension type: essential hypertension Qualified Code(s): I10 - Essential (primary) hypertension Is this a current diagnosis for this admission?: Yes Plan: Well-controlled at present. Currently receiving metoprolol 50 mg twice daily and furosemide 20 mg twice daily. Cardiac diet. (6) Obesity (BMI 30-39.9) Is this a current diagnosis for this admission?: Yes Plan: Dietary and lifestyle modification are encouraged. Cardiac diet. Registered dietitian is consulted. (7) Traumatic ecchymosis of right upper arm Qualifiers: Encounter type: initial encounter Qualified Code(s): S40.021A - Contusion of right upper arm, initial encounter Is this a current diagnosis for this admission?: Yes Plan: Improving. (8) UTI (urinary tract infection), uncomplicated Is this a current diagnosis for this admission?: Yes Plan: Resolved Completed course of IV Rocephin (9) Thrombocytopenia Is this a current diagnosis for this admission?: Yes Plan: Trending up; PLT 125-> 75-> 87-> 99-> 100 Heparin gtt was discontinued Heparin induced Plt antibosy is pending Follow up CBC - Time Time Spent with patient: 25-34 minutes Medications reviewed and adjusted accordingly: Yes Anticipated discharge: Home with Homehealth Within: within 48 hours
--- NOTE | 2019-10-25 15:44 | Progress Note ---
Provider Note Provider Note: Cardiology PROGRESS NOTE by Dr. Yasmine Johnson on 10/25/2019. SUBJECTIVE: Patient states she felt a little dizzy when she took the first dose of Entresto. But at present she seems asymptomatic. Her left-sided weakness is much improved. She continues to be in atrial fibrillation with controlled ventricular response. There is no chest pain or discomfort. The patient denies any shortness of breath PND orthopnea. His leg edema is much improved. There is no new TIA or CVA symptoms and no recurrence. There is no bleeding on Eliquis. PHYSICAL EXAMINATION: The patient is mildly obese. In no acute distress. Selected Entries 10/25/19 10/25/19 15:32 15:58 Temperature 98.0 F Temperature Oral Source Heart Rate ( 95 Monitors) Respiratory 18 Rate Blood Pressure 107/77 Blood Pressure 87 Mean BP Location Right Wrist BP Position Supine O2 Sat by Pulse 97 Oximetry Oxygen Delivery Room Air Method HEAD: Is atraumatic normocephalic. EYES: Pupils equal round regular reactive to light accommodation. Extraocular movements are normal. There is no conjunctival pallor. There is no scleral icterus. EARS: External auditory canals are clear. Tympanic membranes are intact. NOSE: There is no deviated nasal septum. There is no inflammation nasal mucous membrane. MOUTH: Mucous membranes of the mouth are moist. Tongue is moist. There is no ulcers. There is no bleeding from the gums. THROAT: There is no redness of the oropharynx. T here is no exudates. SKIN: There is no skin rashes. There is no petechia or ecchymosis. NECK: Is supple. There is no JVD. Carotids are equal there is no bruit. There is no lymphadenopathy. There is no goiter. There is no accessory muscle respiration use. Trachea central. LUNGS: Is clear to auscultation percussion without any rhonchi rales or wheezing. HEART: S1-S2 is heard. S1 is of variable intensity. There is systolic murmur left sternal border and the apex there is no rub. ABDOMEN: Is obese. Nontender. There is no hepatosplenomegaly. Bowel sounds are well heard. EXTREMITIES: Femorals are deep. Femorals are diminished. Leg pulses are diminished. There is 1+ edema bilaterally. There is no DVT or cellulitis. There is no calf tenderness. RESIDENT INTERN: The patient is conscious awake alert oriented x3 with very mild left-sided weakness. PSYCHIATRIC: Patient judgment insight are intact his affect is normal. Labs- All tests 24 hr 10/22/19 10/25/19 10/25/19 16:16 04:54 04:54 WBC 6.8 RBC 4.20 Hgb 13.3 Hct 39.3 MCV 94 MCH 31.6 MCHC 33.8 RDW 14.1 H Plt Count 115 L Sodium 135.9 L Potassium 3.7 Chloride 101 Carbon Dioxide 28 Anion Gap 7 BUN 18 Creatinine 1.12 Est GFR ( Amer) 58 L Est GFR (MDRD) Non-Af 48 L Glucose 99 Calcium 8.8 Heparin-induced Plt Ab 0.084 Head MRI 10/19/19 00:00 IMPRESSION: MULTIPLE SMALL FOCI OF ACUTE INFARCT WHICH INVOLVES SEGMENTS OF THE RIGHT INSULAR CORTEX, DILLARD RADIATA AND CORTICAL/SUBCORTICAL AREAS IN THE POSTERIOR FRONTAL AND PARIETAL LOBE WELL TWO SMALL FOCI IN THE OCCIPITAL LOBE GENERALIZED ATROPHY WITH PERIVENTRICULAR WHITE MATTER DISEASE AND MICROVASCULAR ISCHEMIC CHANGES Dr. Salinas was called and notified of the findings at 8:27 PM. Chest X-Ray 10/19/19 14:40 IMPRESSION: Moderate cardiomegaly. No acute cardiopulmonary disease. Hyperinflated lungs which can be seen with obstructive lung disease. Head CT 10/19/19 14:40 IMPRESSION: MILD CHRONIC CHANGES OF ATROPHY AND MICROVASCULAR ISCHEMIA. NO ACUTE PROCESS. EVIDENCE OF ACUTE STROKE: NO. Head CTA 10/19/19 14:59 IMPRESSION: NO CTA EVIDENCE OF STENOSIS OR ANEURYSM OF THE [place]. Neck CTA 10/19/19 14:59 IMPRESSION: There is some prominent calcified plaque in the left carotid bulb. There appears to be less than 50% stenosis of the ICA. The right vertebral artery is smaller than the left. Humerus X-Ray 10/20/19 00:00 IMPRESSION: No acute osseous abnormality of the right humerus. Venous Doppler Study 10/20/19 00:00 IMPRESSION: No deep vein thrombosis within the right upper extremity. 5.7 cm subcutaneous fluid collection adjacent to the antecubital fossa, which may represent an area of IV catheter infiltration. Carotid Doppler Study 10/22/19 00:00 IMPRESSION: 1. No hemodynamically significant stenosis. 2. Antegrade vertebral arteries. IMPRESSION/RECOMMENDATION: 1. Acute embolic CVA: Patient improving. Agree with anticoagulation. 2. Atrial fibrillation with controlled ventricular response. Note that the patient has a long history of intermittent palpitations. Most likely the patient has had paroxysmal atrial fibrillation. The patient's corrected Marbin vas 2 score is is 5. Hence chronic anticoagulation is indicated. Agree with Dolores. Continue Lopressor. At present the goal is to control the patient's heart rate. Would consider chemical or electrical cardiovesion. 3. Cardiomyopathy with severely reduced LV ejection fraction. Continue beta- leah. Continue the patient on Entresto. We will watch out for any side effects or intolerance. In that case will go back to losartan along with a beta-leah. 4. Hypertension: Patient blood pressuresis acceptable.. Note on admission the patient's blood pressure was very high. 5 obesity: The patient has symptoms of sleep apnea. Would recommend the patient have a sleep study. This can be done as an outpatient. Medications reviewed. Will add Entresto. Medical decision making is of high complexity since the need for addition of medication. Medical regimen and management plan discussed with attending provider on the case. 40 minutes spent as patient with more than 50% time spent in direct patient care. Will follow.
[2019-10-25] MEDS: ATORVASTATIN CALCIUM 40 MG TABLET PO SCH (21:21)
[2019-10-25] MEDS ORDERED: ATORVASTATIN CALCIUM 80 MG TABLET PO SCH (22:00)
[2019-10-26 02:04] LABS: CREATINE KINASE MB 0.56 ng/mL (<4.55); TROPONIN I 0.093 ng/mL
[2019-10-26] MEDS: FUROSEMIDE 20 MG TABLET PO SCH ×2 (06:09→14:19)
--- NOTE | 2019-10-26 06:57 | EKG REPORT ---
SEVERITY:- ABNORMAL ECG - SINUS RHYTHM MULTIPLE ATRIAL PREMATURE COMPLEXES LEFT BUNDLE BRANCH BLOCK : Confirmed by: Morro Cassidy MD 26-Oct-2019 06:56:52
[2019-10-26 08:32] LABS: CREATINE KINASE MB 0.62 ng/mL (<4.55)
[2019-10-26 08:40] LABS: TROPONIN I 0.121 ng/mL
[2019-10-26] MEDS: ASPIRIN 81 MG TABLET, ENT COATED PO SCH (09:20)
[2019-10-26] MEDS: GABAPENTIN 100 MG CAPSULE PO SCH ×3 (09:21→17:25)
[2019-10-26] MEDS: FLUOXETINE HCL 20 MG CAPSULE PO SCH (09:21)
[2019-10-26] MEDS: SACUBITRIL/VALSARTAN 49 MG/51 MG TABLET PO SCH (09:21)
[2019-10-26] MEDS: METOPROLOL TARTRATE 25 MG TABLET PO SCH (09:21)
[2019-10-26] MEDS: APIXABAN 5 MG TABLET PO SCH ×2 (09:21→17:25)
[2019-10-26] MEDS: NITROGLYCERIN 2% OINTMENT 1 GM PACKET TP SCH ×2 (10:02→14:19)
--- NOTE | 2019-10-26 10:28 | PDOC PROGRESS REPORT ---
Subjective Progress Note for:: 10/26/19 Subjective:: Patient was seen on morning rounds. Found resting in bed, comfortably, on room air. She is A&O x4. Patient reports sternal chest pain, non radiating, described as tightness that occured at ~2100 last night and lasted approximately 4 hours. She reports that feels well this morning, other than fatigue and anxiety regarding her chest discomfort and new medications. She denies headache, dizziness, palpitations, dyspnea, orthopnea, abdominal pain, nausea vomiting diarrhea. She has no other questions or concerns today. Nursing reports tropinin is trending up; no changes/concerns by telemetry. Reason For Visit: AFIB RVR, STROKE LIKE SYMPTOMS Physical Exam Vital Signs: Temp Pulse Resp BP Pulse Ox 97.4 F 40 L 18 111/85 92 10/26/19 07:37 10/26/19 07:37 10/26/19 07:37 10/26/19 07:37 10/26/19 07:37 Intake & Output 10/25/19 10/26/19 10/27/19 06:59 06:59 06:59 Intake Total 462 1317 Output Total 1650 1000 Balance -1188 317 Weight 74.3 kg 74.9 kg General appearance: PRESENT: no acute distress, cooperative, well-developed. ABSENT: well-nourished - overweight Head exam: PRESENT: atraumatic, normocephalic Eye exam: PRESENT: conjunctiva pink, EOMI, PERRLA. ABSENT: scleral icterus Mouth exam: PRESENT: moist, tongue midline Respiratory exam: PRESENT: clear to auscultation rocky, symmetrical, unlabored. ABSENT: rales, rhonchi, wheezes Cardiovascular exam: PRESENT: RRR. ABSENT: diastolic murmur, rubs, systolic murmur Pulses: PRESENT: normal dorsalis pedis pul Vascular exam: PRESENT: normal capillary refill Extremities exam: PRESENT: full ROM. ABSENT: calf tenderness, clubbing, pedal edema Neurological exam: PRESENT: alert, awake, oriented to person, oriented to place, oriented to time, oriented to situation, CN II-XII grossly intact. ABSENT: motor sensory deficit Psychiatric exam: PRESENT: anxious, appropriate affect. ABSENT: homicidal ideation, suicidal ideation Skin exam: PRESENT: dry, intact, warm. ABSENT: cyanosis, rash Results Laboratory Results: 10/25/19 04:54 10/25/19 04:54 10/19/19 10/19/19 10/19/19 15:01 15:01 22:06 Creatine Kinase 22 L CK-MB (CK-2) 0.55 Troponin I 0.015 0.014 10/20/19 10/26/19 10/26/19 06:15 01:26 01:26 Creatine Kinase 71 CK-MB (CK-2) 0.56 Troponin I 0.015 0.093 10/26/19 10/26/19 07:33 07:33 Creatine Kinase 65 CK-MB (CK-2) 0.62 Troponin I 0.121 Impressions: Head MRI 10/19/19 00:00 IMPRESSION: MULTIPLE SMALL FOCI OF ACUTE INFARCT WHICH INVOLVES SEGMENTS OF THE RIGHT INSULAR CORTEX, DILLARD RADIATA AND CORTICAL/SUBCORTICAL AREAS IN THE POSTERIOR FRONTAL AND PARIETAL LOBE WELL TWO SMALL FOCI IN THE OCCIPITAL LOBE GENERALIZED ATROPHY WITH PERIVENTRICULAR WHITE MATTER DISEASE AND MICROVASCULAR ISCHEMIC CHANGES Dr. Salinas was called and notified of the findings at 8:27 PM. Chest X-Ray 10/19/19 14:40 IMPRESSION: Moderate cardiomegaly. No acute cardiopulmonary disease. Hyperinflated lungs which can be seen with obstructive lung disease. Head CT 10/19/19 14:40 IMPRESSION: MILD CHRONIC CHANGES OF ATROPHY AND MICROVASCULAR ISCHEMIA. NO ACUTE PROCESS. EVIDENCE OF ACUTE STROKE: NO. Head CTA 10/19/19 14:59 IMPRESSION: NO CTA EVIDENCE OF STENOSIS OR ANEURYSM OF THE [place] OF [place]. Neck CTA 10/19/19 14:59 IMPRESSION: There is some prominent calcified plaque in the left carotid bulb. There appears to be less than 50% stenosis of the ICA. The right vertebral artery is smaller than the left. Humerus X-Ray 10/20/19 00:00 IMPRESSION: No acute osseous abnormality of the right humerus. Venous Doppler Study 10/20/19 00:00 IMPRESSION: No deep vein thrombosis within the right upper extremity. 5.7 cm subcutaneous fluid collection adjacent to the antecubital fossa, which may represent an area of IV catheter infiltration. Carotid Doppler Study 10/22/19 00:00 IMPRESSION: 1. No hemodynamically significant stenosis. 2. Antegrade vertebral arteries. Assessment and Plan - Diagnosis (1) Chest pain Qualifiers: Chest pain type: unspecified Qualified Code(s): R07.9 - Chest pain, unspecified Is this a current diagnosis for this admission?: Yes Plan: EKG shows LBBB (noted on previous EKG) w/o ST segment changes. Troponin 0.093-> 0.121 Continue trending troponins. Discussed with Dr. Mcdonald. Start Nitro paste every 8 hours. 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 Noted antegrade vertebral arteries. Echocardiogram shows LVEF 25 to 30% with moderate to severe global hypokinesis of the left ventricle. Bubble study is negative for intracardiac shunt. She is noted to have mild pulmonary hypertension. MRI head showed multiple small foci of acute infarcts involving segments to the posterior frontal and parietal lobes; two small foci to the occipital lobe. Continue daily aspirin and statin therapy. Start Eliquis. PT/OT consulted. Discharge planning consulted. (3) Systolic congestive heart failure Qualifiers: Heart failure chronicity: unspecified Qualified Code(s): I50.20 - Unspecified systolic (congestive) heart failure Is this a current diagnosis for this admission?: Yes Plan: Echocardiogram revealed LVEF 25 to 30% with moderate to severe global hypokinesis of the left ventricle. Dr. Mcdonald is consulted. Medications adjusted per Dr. Mcdonald. Entresto has been stopped; have started losartan. Continues on aspirin and statin therapy. Currently on metoprolol. Cardiac diet. (4) Acute ischemic right MCA stroke Is this a current diagnosis for this admission?: Yes Plan: As in #1. (5) Atrial fibrillation Qualifiers: Atrial fibrillation type: other persistent Qualified Code(s): I48.19 - Other persistent atrial fibrillation Is this a current diagnosis for this admission?: Yes Plan: Cardiology is consulted. Chads Vascor 5. We will begin Eliquis as the patient's platelets are now greater than [address] Mcdonald's expertise. (6) Hypertension Qualifiers: Hypertension type: essential hypertension Qualified Code(s): I10 - Essential (primary) hypertension Is this a current diagnosis for this admission?: Yes Plan: Well-controlled at present. Currently receiving metoprolol 50 mg twice daily and furosemide 20 mg twice daily. Cardiac diet. (7) Obesity (BMI 30-39.9) Is this a current diagnosis for this admission?: Yes Plan: Dietary and lifestyle modification are encouraged. Cardiac diet. Registered dietitian is consulted. (8) Traumatic ecchymosis of right upper arm Qualifiers: Encounter type: initial encounter Qualified Code(s): S40.021A - Contusion of right upper arm, initial encounter Is this a current diagnosis for this admission?: Yes Plan: Improving. 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 - Time Time Spent with patient: 35 or more minutes Medications reviewed and adjusted accordingly: Yes Anticipated discharge: Home with Homehealth
--- NOTE | 2019-10-26 12:21 | RADIOLOGY REPORT (SQ) ---
EXAM DESCRIPTION: CHEST SINGLE VIEW IMAGES COMPLETED DATE/TIME: 10/26/2019 12:11 pm REASON FOR STUDY: CHF COMPARISON: AP view of the chest from 10/19/2019. EXAM PARAMETERS: NUMBER OF VIEWS: One view. TECHNIQUE: An AP view of the chest was obtained. RADIATION DOSE: NA LIMITATIONS: None. FINDINGS: LUNGS AND PLEURA: No consolidation, pleural effusion or pneumothorax. MEDIASTINUM AND HILAR STRUCTURES: No mediastinal or hilar contour abnormality. HEART AND VASCULAR STRUCTURES: The cardiac silhouette is enlarged. BONES: No acute findings. HARDWARE: None in the chest. OTHER: No other finding. IMPRESSION: Cardiomegaly without a superimposed acute cardiopulmonary process. TECHNICAL DOCUMENTATION: JOB ID: [id number] 2010 [employer]- All Rights Reserved Reading location - IP/workstation name: [email or web address]
[2019-10-26 13:14] LABS: CREATINE KINASE MB 0.43 ng/mL (<4.55); TROPONIN I 0.099 ng/mL
--- NOTE | 2019-10-26 18:56 | Progress Note ---
Provider Note Provider Note: CARDIOLOGY PROGRESS NOTE by Dr. Yasmine Johnson on 10/26/2019. SUBJECTIVE: The patient states that last night had generalized chest tightness lasting for 4 hours. The patient states this was not reproducible and did not wax or wane. There was no radiation. She felt slightly short of breath with that and there was some symptoms suggesting that when the patient laid down the chest tightness became a little more pronounced. This could be a equal into her heart failure. Her left-sided weakness is almost fully resolved. The patient continues to be in atrial fibrillation with controlled ventricular response. The patient's EKG unfortunately is nondiagnostic due to left bundle branch block pattern. The patient's troponin is borderline trended to 0. 1-1, and this trended back down to 0.093. Hence doubt that this is non-ST relation ME. The troponin leak may be due to the patient's cardiomyopathy. There is no ventricle arrhythmia seen on the patient. There is no bleeding on Eliquis. There is no recurrence of TIA CVA symptoms. As per patient's request I called the patient's pharmacy. Her cost for the Entresto will be $280 for 30 pills. Hence the patient clearly, as per her discussion with me, cannot afford it. Hence we will stop the Entresto and go back to losartan. PHYSICAL EXAMINATION: The patient is moderately obese. At present in no acute distress. Selected Entries 10/26/19 11:20 Temperature 97.5 F Temperature Oral Source Pulse Rate 79 Respiratory 18 Rate Blood Pressure 108/54 L Blood Pressure 72 Mean BP Location Right Wrist BP Position Supine O2 Sat by Pulse 94 Oximetry Oxygen Delivery Room Air Method HEAD: Is atraumatic normocephalic. EYES: Pupils equal round regular reactive to light accommodation. Extraocular movements are normal. There is no conjunctival pallor. There is no scleral icterus. EARS: External auditory canals are clear. Tympanic membranes are intact. NOSE: There is no deviated nasal septum. There is no inflammation nasal mucous membrane. MOUTH: Mucous membranes of the mouth are moist. Tongue is moist. There is no ulcers. There is no bleeding from the gums. THROAT: There is no redness of the oropharynx. There is no exudates. SKIN: There is no skin rashes. There is no petechia or ecchymosis. NECK: Is supple. There is no JVD. Carotids are equal there is no bruit. There is no lymphadenopathy. There is no goiter. There is no accessory muscle respiration use. Trachea central. LUNGS: Is clear to auscultation percussion without any rhonchi rales or wheezing. HEART: S1-S2 is heard. S1 is of variable intensity. There is systolic murmur left sternal border and the apex there is no rub. ABDOMEN: Is obese. Nontender. There is no hepatosplenomegaly. Bowel sounds are well heard. EXTREMITIES: Femorals are deep. Femorals are diminished. Leg pulses are diminished. There is 1+ edema bilaterally. There is no DVT or cellulitis. There is no calf tenderness. [employer] UNDERWRITER: The patient is conscious awake alert oriented x3 with very mild left-sided weakness. PSYCHIATRIC: Patient judgment insight are intact his affect is normal. Labs- All tests 24 hr 10/26/19 10/26/19 10/26/19 01:26 01:26 07:33 Creatine Kinase 71 65 CK-MB (CK-2) 0.56 Troponin I 0.093 10/26/19 10/26/19 10/26/19 07:33 12:15 12:15 Creatine Kinase 63 CK-MB (CK-2) 0.62 0.43 Troponin I 0.121 0.099 Head MRI 10/19/19 00:00 IMPRESSION: MULTIPLE SMALL FOCI OF ACUTE INFARCT WHICH INVOLVES SEGMENTS OF THE RIGHT INSULAR CORTEX, DILLARD RADIATA AND CORTICAL/SUBCORTICAL AREAS IN THE POSTERIOR FRONTAL AND PARIETAL LOBE WELL TWO SMALL FOCI IN THE OCCIPITAL LOBE GENERALIZED ATROPHY WITH PERIVENTRICULAR WHITE MATTER DISEASE AND MICROVASCULAR ISCHEMIC CHANGES Dr. Salinas was called and notified of the findings at 8:27 PM. Chest X-Ray 10/19/19 14:40 IMPRESSION: Moderate cardiomegaly. No acute cardiopulmonary disease. Hyperinflated lungs which can be seen with obstructive lung disease. Head CT 10/19/19 14:40 IMPRESSION: MILD CHRONIC CHANGES OF ATROPHY AND MICROVASCULAR ISCHEMIA. NO ACUTE PROCESS. EVIDENCE OF ACUTE STROKE: NO. Head CTA 10/19/19 14:59 IMPRESSION: NO CTA EVIDENCE OF STENOSIS OR ANEURYSM OF THE [place] OF [place]. Neck CTA 10/19/19 14:59 IMPRESSION: There is some prominent calcified plaque in the left carotid bulb. There appears to be less than 50% stenosis of the ICA. The right vertebral artery is smaller than the left. Humerus X-Ray 10/20/19 00:00 IMPRESSION: No acute osseous abnormality of the right humerus. Venous Doppler Study 10/20/19 00:00 IMPRESSION: No deep vein thrombosis within the right upper extremity. 5.7 cm subcutaneous fluid collection adjacent to the antecubital fossa, which may represent an area of IV catheter infiltration. Carotid Doppler Study 10/22/19 00:00 IMPRESSION: 1. No hemodynamically significant stenosis. 2. Antegrade vertebral arteries. Chest X-Ray 10/26/19 00:00 IMPRESSION: Cardiomegaly without a superimposed acute cardiopulmonary process. My interpretation of the patient is EKG is that: Atrial fibrillation with controlled ventricular response. Left bundle branch block pattern IMPRESSION/RECOMMENDATION: 1. Prolonged chest tightness: Doubt if this is unstable angina. In spite of the 4 hours of chest pain tightness that the patient had her troponin is only borderline elevated and is now trending down. The patient is on nitrates. Later 4 to 6 weeks after the acute CVA we would recommend that the patient have a IV Lexiscan Cardiolite stress test. Unfortunately the patient is EKG showed left bundle branch block pattern and hence is non-diagnostic. 2. Acute embolic CVA: Patient improving. Agree with anticoagulation. 3. Atrial fibrillation with controlled ventricular response. Note that the patient has a long history of intermittent palpitations. Most likely the patient has had paroxysmal atrial fibrillation. The patient's corrected Marbin vas 2 score is is 5. Hence chronic anticoagulation is indicated. Agree with Eliquis. Continue Lopressor. At present the goal is to control the patient's heart rate. Would consider chemical or electrical cardiovesion. 4. Cardiomyopathy with severely reduced LV ejection fraction. Continue beta- leah. Continue the patient on Entresto. We will watch out for any side effects or intolerance. In that case will go back to losartan along with a beta-leah. 5. Hypertension: Patient blood pressuresis acceptable.. Note on admission the patient's blood pressure was very high. 6. Obesity: The patient has symptoms of sleep apnea. Would recommend the patient have a sleep study. This can be done as an outpatient. Medications reviewed. Will losartan and stop Entresto. Medical decision making is of high complexity since the need for addition of medication. Medical regimen and management plan discussed with attending provider on the case. 40 minutes spent as patient with more than 50% time spent in direct patient care. Will follow
[2019-10-26] MEDS: ATORVASTATIN CALCIUM 40 MG TABLET PO SCH (22:45)
[2019-10-27] MEDS ORDERED: ONDANSETRON HCL INJ/PF 4 MG/2 ML SDV ONE (01:06)
[2019-10-27] MEDS: ONDANSETRON HCL INJ/PF 4 MG/2 ML SDV IV PRN ×2 (01:10→20:16)
[2019-10-27] MEDS: METOPROLOL TARTRATE 25 MG TABLET PO SCH ×2 (01:59→11:39)
[2019-10-27] MEDS: LOSARTAN POTASSIUM 50 MG TABLET PO SCH ×2 (01:59→11:37)
[2019-10-27] MEDS: NITROGLYCERIN 2% OINTMENT 1 GM PACKET TP SCH ×2 (02:00→05:30)
[2019-10-27] MEDS ORDERED: RINGERS SOLUTION,LACTATED 1,000 ML IV ONE ×2 (02:45→04:30)
[2019-10-27 05:41] LABS: HEMATOCRIT 39.7 % (36.0-47.0); HEMOGLOBIN 13.3 g/dL (12.0-15.5); MEAN CORPUSCULAR HEMOGLOBIN 31.2 pg (27.0-33.4); MEAN CORPUSCULAR HGB CONC 33.5 g/dL (32.0-36.0); MEAN CORPUSCULAR VOLUME 93 fl (80-97); PLATELET COUNT 122 10^3/uL (150-450); RED BLOOD COUNT 4.25 10^6/uL (3.72-5.28); RED CELL DISTRIBUTION WIDTH 14.1 % (11.5-14.0); WHITE BLOOD COUNT 7.6 10^3/uL (4.0-10.5)
[2019-10-27 05:57] LABS: ANION GAP 6 (5-19); BLOOD UREA NITROGEN 33 mg/dL (7-20); CALCIUM 8.2 mg/dL (8.4-10.2); CARBON DIOXIDE 28 mmol/L (22-30); CHLORIDE 100 mmol/L (98-107); GLUCOSE 95 mg/dL (75-110)
[2019-10-27] MEDS: FUROSEMIDE 20 MG TABLET PO SCH (08:22)
[2019-10-27] MEDS ORDERED: MIDODRINE HCL 5 MG TABLET PO ONE (10:00)
[2019-10-27] MEDS: ASPIRIN 81 MG TABLET, ENT COATED PO SCH (11:38)
[2019-10-27] MEDS: FLUOXETINE HCL 20 MG CAPSULE PO SCH (11:44)
[2019-10-27] MEDS: APIXABAN 5 MG TABLET PO SCH ×2 (11:44→17:23)
[2019-10-27] MEDS: GABAPENTIN 100 MG CAPSULE PO SCH ×3 (11:44→17:23)
--- NOTE | 2019-10-27 12:13 | PDOC PROGRESS REPORT ---
Subjective Progress Note for:: 10/27/19 Subjective:: Patient was seen on morning rounds. Found resting in bed, comfortably, on room air. She is A&O x4. She reports generalized fatigue today; did not sleep well (patient w/ hypotension requiring increased nurse monitoring). Otherwise, she feels well. She denies headache, dizziness, chest pain, palpitations, dyspnea, orthopnea, abdominal pain, nausea, vomiting, and diarrhea. She has no questions or concerns today. Reason For Visit: AFIB RVR, STROKE LIKE SYMPTOMS Physical Exam Vital Signs: Temp Pulse Resp BP Pulse Ox 97.8 F 120 H 17 99/71 L 90 L 10/27/19 07:37 10/27/19 07:37 10/27/19 07:37 10/27/19 07:37 10/27/19 07:37 Intake & Output 10/26/19 10/27/19 10/28/19 06:59 06:59 06:59 Intake Total 1317 1005 2000 Output Total 1000 500 Balance 354 228 5135 Weight 74.9 kg 75.9 kg General appearance: PRESENT: no acute distress, cooperative, well-developed, well-nourished - overweight Head exam: PRESENT: atraumatic, normocephalic Eye exam: PRESENT: conjunctiva pink, EOMI, PERRLA. ABSENT: scleral icterus Mouth exam: PRESENT: moist, tongue midline Respiratory exam: PRESENT: clear to auscultation rokcy, symmetrical, unlabored. ABSENT: rales, rhonchi, wheezes Cardiovascular exam: PRESENT: RRR, +S1, +S2. ABSENT: diastolic murmur, rubs, systolic murmur Pulses: PRESENT: normal dorsalis pedis pul Vascular exam: PRESENT: normal capillary refill Extremities exam: PRESENT: full ROM. ABSENT: calf tenderness, clubbing, pedal edema Neurological exam: PRESENT: alert, awake, oriented to person, oriented to place, oriented to time, oriented to situation, CN II-XII grossly intact, other - Increased facial droop/slurred speach. Extremities are equal bilaterally.. ABSENT: motor sensory deficit Psychiatric exam: PRESENT: appropriate affect, normal mood. ABSENT: homicidal ideation, suicidal ideation Skin exam: PRESENT: dry, intact, warm. ABSENT: cyanosis, rash Results Laboratory Results: 10/27/19 05:12 10/27/19 05:12 10/27/19 10/27/19 05:12 05:12 WBC 7.6 RBC 4.25 Hgb 13.3 Hct 39.7 MCV 93 MCH 31.2 MCHC 33.5 RDW 14.1 H Plt Count 122 L Sodium 134.3 L Potassium 4.0 Chloride 100 Carbon Dioxide 28 Anion Gap 6 BUN 33 H Creatinine 2.36 H Est GFR ( Amer) 24 L Glucose 95 Calcium 8.2 L 10/19/19 10/19/19 10/19/19 15:01 15:01 22:06 Creatine Kinase 22 L CK-MB (CK-2) 0.55 Troponin I 0.015 0.014 10/20/19 10/26/19 10/26/19 06:15 01:26 01:26 Creatine Kinase 71 CK-MB (CK-2) 0.56 Troponin I 0.015 0.093 10/26/19 10/26/19 10/26/19 07:33 07:33 12:15 Creatine Kinase 65 63 CK-MB (CK-2) 0.62 Troponin I 0.121 10/26/19 10/26/19 12:15 17:53 Creatine Kinase CK-MB (CK-2) 0.43 Troponin I 0.099 0.084 Impressions: Head MRI 10/19/19 00:00 IMPRESSION: MULTIPLE SMALL FOCI OF ACUTE INFARCT WHICH INVOLVES SEGMENTS OF THE RIGHT INSULAR CORTEX, DILLARD RADIATA AND CORTICAL/SUBCORTICAL AREAS IN THE POSTERIOR FRONTAL AND PARIETAL LOBE WELL TWO SMALL FOCI IN THE OCCIPITAL LOBE GENERALIZED ATROPHY WITH PERIVENTRICULAR WHITE MATTER DISEASE AND MICROVASCULAR ISCHEMIC CHANGES Dr. Salinas was called and notified of the findings at 8:[address] 10/19/19 14:40 IMPRESSION: MILD CHRONIC CHANGES OF ATROPHY AND MICROVASCULAR ISCHEMIA. NO ACUTE PROCESS. EVIDENCE OF ACUTE STROKE: NO. Head CTA 10/19/19 14:59 IMPRESSION: NO CTA EVIDENCE OF STENOSIS OR ANEURYSM OF THE [place]. Neck CTA 10/19/19 14:59 IMPRESSION: There is some prominent calcified plaque in the left carotid bulb. There appears to be less than 50% stenosis of the ICA. The right vertebral artery is smaller than the left. Humerus X-Ray 10/20/19 00:00 IMPRESSION: No acute osseous abnormality of the right humerus. Venous Doppler Study 10/20/19 00:00 IMPRESSION: No deep vein thrombosis within the right upper extremity. 5.7 cm subcutaneous fluid collection adjacent to the antecubital fossa, which may represent an area of IV catheter infiltration. Carotid Doppler Study 10/22/19 00:00 IMPRESSION: 1. No hemodynamically significant stenosis. 2. Antegrade vertebral arteries. Chest X-Ray 10/26/19 00:00 IMPRESSION: Cardiomegaly without a superimposed acute cardiopulmonary process. Assessment and Plan - Diagnosis (1) PHILLY (acute kidney injury) Is this a current diagnosis for this admission?: Yes Plan: Prerenal r/t hypotension. Discussed w/ Dr. Mcdonald. Medication on hold; metoprolol, losartan, furosemide. Encourage p.o. fluids. Avoid nephrotoxic medications as able. Monitor I&Os Follow up chemistry (2) Hypotension Is this a current diagnosis for this admission?: Yes Plan: Discussed with Dr. Mcdonald. Medications on hold (metoprolol, losartan, furosemide) Encourage p.o. fluids. Starting Midodrine. (3) Chest pain Qualifiers: Chest pain type: unspecified Qualified Code(s): R07.9 - Chest pain, unspecified Is this a current diagnosis for this admission?: Yes Plan: EKG shows LBBB (noted on previous EKG) w/o ST segment changes. Troponin 0.093-> 0.121-> 0.099-> 0.[address] Mcdonald; unlikely to be NSTEMI. Possibly troponin leak related to cardiomyopathy. (4) Embolic stroke involving right middle cerebral artery Is this a current diagnosis for this admission?: Yes Plan: Carotid Doppler is negative for hemodynamically significant stenosis. Noted antegrade vertebral arteries. Echocardiogram shows LVEF 25 to 30% with moderate to severe global hypokinesis of the left ventricle. Bubble study is negative for intracardiac shunt. She is noted to have mild pulmonary hypertension. MRI head showed multiple small foci of acute infarcts involving segments to the posterior frontal and parietal lobes; two small foci to the occipital lobe. Continue daily statin therapy. Start Eliquis. PT/OT consulted. Discharge planning consulted. (5) Systolic congestive heart failure Qualifiers: Heart failure chronicity: unspecified Qualified Code(s): I50.20 - Unspecified systolic (congestive) heart failure Is this a current diagnosis for this admission?: Yes Plan: Echocardiogram revealed LVEF 25 to 30% with moderate to severe global hypokinesis of the left ventricle. Cardiology consulted. Medications adjusted per Dr. Mcdonald. Continues on aspirin and statin therapy. Cardiac diet. (6) Acute ischemic right MCA stroke Is this a current diagnosis for this admission?: Yes Plan: As above (7) Atrial fibrillation Qualifiers: Atrial fibrillation type: other persistent Qualified Code(s): I48.19 - Other persistent atrial fibrillation Is this a current diagnosis for this admission?: Yes Plan: Cardiology is consulted. Chads Vascor 5. We will begin Eliquis as the patient's platelets are now greater than [address] Mcdonald's expertise. (8) Hypertension Qualifiers: Hypertension type: essential hypertension Qualified Code(s): I10 - Essential (primary) hypertension Is this a current diagnosis for this admission?: Yes Plan: Cardiac diet. (9) Obesity (BMI 30-39.9) Is this a current diagnosis for this admission?: Yes Plan: Dietary and lifestyle modification are encouraged. Cardiac diet. Registered dietitian is consulted. (10) Traumatic ecchymosis of right upper arm Qualifiers: Encounter type: initial encounter Qualified Code(s): S40.021A - Contusion of right upper arm, initial encounter Is this a current diagnosis for this admission?: Yes Plan: Nearly resolved. 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 - Time Time Spent with patient: 25-34 minutes Medications reviewed and adjusted accordingly: Yes Anticipated discharge: Home with Homehealth
[2019-10-27 15:28] LABS: ANION GAP 6 (5-19); BLOOD UREA NITROGEN 35 mg/dL (7-20); CALCIUM 8.2 mg/dL (8.4-10.2); CARBON DIOXIDE 29 mmol/L (22-30); CHLORIDE 98 mmol/L (98-107); GLUCOSE 109 mg/dL (75-110); POTASSIUM 4.3 mmol/L (3.6-5.0)
[2019-10-27] MEDS: MIDODRINE HCL 5 MG TABLET PO SCH ×2 (15:30→17:23)
[2019-10-27] MEDS ORDERED: NORMAL SALINE 500 ML IV PRN (16:25)
[2019-10-27] MEDS ORDERED: LOSARTAN POTASSIUM 50 MG TABLET PO SCH (22:00)
[2019-10-27] MEDS: ATORVASTATIN CALCIUM 40 MG TABLET PO SCH (22:34)
[2019-10-28 05:35] LABS: HEMATOCRIT 37.9 % (36.0-47.0); HEMOGLOBIN 12.7 g/dL (12.0-15.5); MEAN CORPUSCULAR HEMOGLOBIN 31.6 pg (27.0-33.4); MEAN CORPUSCULAR HGB CONC 33.6 g/dL (32.0-36.0); MEAN CORPUSCULAR VOLUME 94 fl (80-97); PLATELET COUNT 127 10^3/uL (150-450); RED BLOOD COUNT 4.02 10^6/uL (3.72-5.28); RED CELL DISTRIBUTION WIDTH 14.4 % (11.5-14.0); WHITE BLOOD COUNT 6.9 10^3/uL (4.0-10.5)
[2019-10-28 06:05] LABS: ANION GAP 7 (5-19); BLOOD UREA NITROGEN 38 mg/dL (7-20); CARBON DIOXIDE 26 mmol/L (22-30); CHLORIDE 100 mmol/L (98-107); GLUCOSE 89 mg/dL (75-110); POTASSIUM 4.5 mmol/L (3.6-5.0)
[2019-10-28] MEDS: FLUOXETINE HCL 20 MG CAPSULE PO SCH (09:22)
[2019-10-28] MEDS: APIXABAN 2.5 MG TABLET PO SCH ×2 (09:22→17:17)
[2019-10-28] MEDS: MIDODRINE HCL 5 MG TABLET PO SCH ×3 (09:22→17:17)
[2019-10-28] MEDS: GABAPENTIN 100 MG CAPSULE PO SCH ×3 (09:22→17:17)
[2019-10-28] MEDS ORDERED: METOPROLOL SUCCINATE 25 MG TAB.SR.24H PO SCH (10:00)
--- NOTE | 2019-10-28 11:14 | PDOC PROGRESS REPORT ---
Subjective Progress Note for:: 10/28/19 Subjective:: Patient was seen on morning rounds. Found resting in bed, comfortably, on room air. She is A&O x4. She is feeling better this morning; slept well overnight. She denies development of any new symptoms. Understandably frustrated that she is not yet ready for discharge. She denies headache, dizziness, chest pain, palpitations, dyspnea, orthopnea, abdominal pain, nausea, vomiting, and diarrhea. She has no questions or concerns today. Reason For Visit: AFIB RVR, STROKE LIKE SYMPTOMS Physical Exam Vital Signs: Temp Pulse Resp BP Pulse Ox 98.2 F 53 L 17 103/68 91 L 10/28/19 08:20 10/28/19 08:20 10/28/19 08:20 10/28/19 08:20 10/28/19 08:20 Intake & Output 10/27/19 10/28/19 10/29/19 06:59 06:59 06:59 Intake Total 1005 2459 Output Total 500 Balance 505 2459 Weight 75.9 kg 77.6 kg General appearance: PRESENT: no acute distress, cooperative, well-developed, well-nourished Head exam: PRESENT: atraumatic, normocephalic Eye exam: PRESENT: conjunctiva pink, EOMI, PERRLA. ABSENT: scleral icterus Mouth exam: PRESENT: moist, tongue midline Respiratory exam: PRESENT: clear to auscultation rocky, symmetrical. ABSENT: rales, rhonchi, wheezes Cardiovascular exam: PRESENT: irregular rhythm. ABSENT: diastolic murmur, rubs, systolic murmur Pulses: PRESENT: normal dorsalis pedis pul Vascular exam: PRESENT: normal capillary refill Extremities exam: PRESENT: full ROM. ABSENT: calf tenderness, clubbing, pedal edema Neurological exam: PRESENT: alert, awake, oriented to person, oriented to place, oriented to time, oriented to situation, CN II-XII grossly intact, other - Decreased facial asymetry; slurred speech nearly resolved. Extremities equal bilaterally.. ABSENT: motor sensory deficit Psychiatric exam: PRESENT: appropriate affect, normal mood. ABSENT: homicidal ideation, suicidal ideation Skin exam: PRESENT: dry, intact, warm. ABSENT: cyanosis, rash Results Laboratory Results: 10/28/19 05:07 10/28/19 05:07 0610/28/19 10/28/19 14:55 05:07 05:07 WBC 6.9 RBC 4.02 Hgb 12.7 Hct 37.9 MCV 94 MCH 31.6 MCHC 33.6 RDW 14.4 H Plt Count 127 L Sodium 133.3 L 132.9 L Potassium 4.3 4.5 Chloride 98 100 Carbon Dioxide 29 26 Anion Gap 6 7 BUN 35 H 38 H Creatinine 2.74 H 2.56 H Est GFR ( Amer) 21 L 22 L Glucose 109 89 Calcium 8.2 L 8.0 L 10/19/19 10/19/19 10/19/19 15:01 15:01 22:06 Creatine Kinase 22 L CK-MB (CK-2) 0.55 Troponin I 0.015 0.014 10/20/19 10/26/19 10/26/19 06:15 01:26 01:26 Creatine Kinase 71 CK-MB (CK-2) 0.56 Troponin I 0.015 0.093 10/26/19 10/26/19 10/26/19 07:33 07:33 12:15 Creatine Kinase 65 63 CK-MB (CK-2) 0.62 Troponin I 0.121 10/26/19 10/26/19 12:15 17:53 Creatine Kinase CK-MB (CK-2) 0.43 Troponin I 0.099 0.084 Impressions: Head MRI 10/19/19 00:00 IMPRESSION: MULTIPLE SMALL FOCI OF ACUTE INFARCT WHICH INVOLVES SEGMENTS OF THE RIGHT INSULAR CORTEX, DILLARD RADIATA AND CORTICAL/SUBCORTICAL AREAS IN THE POSTERIOR FRONTAL AND PARIETAL LOBE WELL TWO SMALL FOCI IN THE OCCIPITAL LOBE GENERALIZED ATROPHY WITH PERIVENTRICULAR WHITE MATTER DISEASE AND MICROVASCULAR ISCHEMIC CHANGES Dr. Salinas was called and notified of the findings at 8:[address] 10/19/19 14:40 IMPRESSION: MILD CHRONIC CHANGES OF ATROPHY AND MICROVASCULAR ISCHEMIA. NO ACUTE PROCESS. EVIDENCE OF ACUTE STROKE: NO. Head CTA 10/19/19 14:59 IMPRESSION: NO CTA EVIDENCE OF STENOSIS OR ANEURYSM OF THE [place]. Neck CTA 10/19/19 14:59 IMPRESSION: There is some prominent calcified plaque in the left carotid bulb. There appears to be less than 50% stenosis of the ICA. The right vertebral artery is smaller than the left. Humerus X-Ray 10/20/19 00:00 IMPRESSION: No acute osseous abnormality of the right humerus. Venous Doppler Study 10/20/19 00:00 IMPRESSION: No deep vein thrombosis within the right upper extremity. 5.7 cm subcutaneous fluid collection adjacent to the antecubital fossa, which may represent an area of IV catheter infiltration. Carotid Doppler Study 10/22/19 00:00 IMPRESSION: 1. No hemodynamically significant stenosis. 2. Antegrade vertebral arteries. Chest X-Ray 10/26/19 00:00 IMPRESSION: Cardiomegaly without a superimposed acute cardiopulmonary process. Assessment and Plan - Diagnosis (1) PHILLY (acute kidney injury) Is this a current diagnosis for this admission?: Yes Plan: Slight improvement; Cr 1.12-> 2.36-> 2.74-> 2.56 Prerenal r/t hypotension. Discussed w/ Dr. Mcdonald. Medication on hold; metoprolol, losartan, furosemide. Encourage p.o. fluids; only 1L documented yesterday Avoid nephrotoxic medications as able. Monitor I&Os Follow up chemistry (2) Hypotension Is this a current diagnosis for this admission?: Yes Plan: Improved; averaging 100/[address] Mcdonald. Medications on hold (metoprolol, losartan, furosemide) Encourage p.o. fluids. Continue Midodrine. (3) Chest pain Qualifiers: Chest pain type: unspecified Qualified Code(s): R07.9 - Chest pain, unspecified Is this a current diagnosis for this admission?: Yes Plan: No further episodes. EKG shows LBBB (noted on previous EKG) w/o ST segment changes. Troponin 0.093-> 0.121-> 0.099-> 0.[address] Mcdonald; unlikely to be NSTEMI. Possibly troponin leak related to cardiomyopathy. (4) Embolic stroke involving right middle cerebral artery Is this a current diagnosis for this admission?: Yes Plan: Carotid Doppler is negative for hemodynamically significant stenosis. Noted antegrade vertebral arteries. Echocardiogram shows LVEF 25 to 30% with moderate to severe global hypokinesis of the left ventricle. Bubble study is negative for intracardiac shunt. She is noted to have mild pulmonary hypertension. MRI head showed multiple small foci of acute infarcts involving segments to the posterior frontal and parietal lobes; two small foci to the occipital lobe. Continue daily statin therapy. Start Eliquis. PT/OT consulted. Discharge planning consulted. (5) Systolic congestive heart failure Qualifiers: Heart failure chronicity: unspecified Qualified Code(s): I50.20 - Unspecified systolic (congestive) heart failure Is this a current diagnosis for this admission?: Yes Plan: Echocardiogram revealed LVEF 25 to 30% with moderate to severe global hypokinesis of the left ventricle. Cardiology consulted. Medications adjusted per Dr. Mcdonald. Continues on aspirin and statin therapy. Cardiac diet. (6) Acute ischemic right MCA stroke Is this a current diagnosis for this admission?: Yes Plan: As above (7) Atrial fibrillation Qualifiers: Atrial fibrillation type: other persistent Qualified Code(s): I48.19 - Other persistent atrial fibrillation Is this a current diagnosis for this admission?: Yes Plan: Cardiology is consulted. Chads Vascor 5. We will begin Eliquis as the patient's platelets are now greater than [address] Mcdonald's expertise. (8) Hypertension Qualifiers: Hypertension type: essential hypertension Qualified Code(s): I10 - Essential (primary) hypertension Is this a current diagnosis for this admission?: Yes Plan: Cardiac diet. (9) Obesity (BMI 30-39.9) Is this a current diagnosis for this admission?: Yes Plan: Dietary and lifestyle modification are encouraged. Cardiac diet. Registered dietitian is consulted. (10) Traumatic ecchymosis of right upper arm Qualifiers: Encounter type: initial encounter Qualified Code(s): S40.021A - Contusion of right upper arm, initial encounter Is this a current diagnosis for this admission?: Yes Plan: Nearly resolved. 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 - Time Time Spent with patient: 25-34 minutes Medications reviewed and adjusted accordingly: Yes Anticipated discharge: Home
[2019-10-28] MEDS: METOPROLOL SUCCINATE 25 MG TAB.SR.24H PO SCH (14:44)
[2019-10-28] MEDS: HYDRALAZINE HCL 10 MG TABLET PO SCH ×2 (14:45→22:30)
[2019-10-28] MEDS: ATORVASTATIN CALCIUM 40 MG TABLET PO SCH (22:31)
--- NOTE | 2019-10-28 22:59 | Progress Note ---
Provider Note Provider Note: CARDIOLOGY PROGRESS NOTE by Dr. Crockett nursing on 10/28/2019. SUBJECTIVE: The patient's blood pressure is much improved. Renal failure has stabilized with a GFR around 18. She denies any chest pain discomfort. There is no recurrence of the TIA or CVA symptoms. There is no ventricle arrhythmia seen on the monitor remains in atrial fibrillation with controlled ventricular response. Her blood pressure did improve after IV fluids given gently. PHYSICAL EXAMINATION: The patient is moderately obese. In no acute distress Selected Entries 10/28/19 11:39 Temperature 98.7 F Temperature Oral Source Pulse Rate 76 Respiratory 13 Rate Blood Pressure 117/71 Blood Pressure 86 Mean BP Location Left Arm BP Position Supine O2 Sat by Pulse 96 Oximetry Oxygen Delivery Room Air Method HEAD: Is atraumatic normocephalic. EYES: Pupils equal round regular reactive to light accommodation. Extraocular movements are normal. There is no conjunctival pallor. There is no scleral icterus. EARS: External auditory canals are clear. Tympanic membranes are intact. NOSE: There is no deviated nasal septum. There is no inflammation nasal mucous membrane. MOUTH: Mucous membranes of the mouth are moist. Tongue is moist. There is no ulcers. There is no bleeding from the gums. THROAT: There is no redness of the oropharynx. There is no exudates. SKIN: There is no skin rashes. There is no petechia or ecchymosis. NECK: Is supple. There is no JVD. Carotids are equal there is no bruit. There is no lymphadenopathy. There is no goiter. There is no accessory muscle respiration use. Trachea central. LUNGS: Is clear to auscultation percussion without any rhonchi rales or wheezing. HEART: S1-S2 is heard. S1 is of variable intensity. There is systolic murmur left sternal border and the apex there is no rub. ABDOMEN: Is obese. Nontender. There is no hepatosplenomegaly. Bowel sounds are well heard. EXTREMITIES: Femorals are deep. Femorals are diminished. Leg pulses are diminished. There is 1+ edema bilaterally. There is no DVT or cellulitis. There is no calf tenderness. KITCHEN AIDE: The patient is conscious awake alert oriented x3 with very mild left-sided weakness. PSYCHIATRIC: Patient judgment insight are intact his affect is normal. Head MRI 10/19/19 00:00 IMPRESSION: MULTIPLE SMALL FOCI OF ACUTE INFARCT WHICH INVOLVES SEGMENTS OF THE RIGHT INSULAR CORTEX, DILLARD RADIATA AND CORTICAL/SUBCORTICAL AREAS IN THE POSTERIOR FRONTAL AND PARIETAL LOBE WELL TWO SMALL FOCI IN THE OCCIPITAL LOBE GENERALIZED ATROPHY WITH PERIVENTRICULAR WHITE MATTER DISEASE AND MICROVASCULAR ISCHEMIC CHANGES Dr. Salinas was called and notified of the findings at 8:27 PM. Chest X-Ray 10/19/19 14:40 IMPRESSION: Moderate cardiomegaly. No acute cardiopulmonary disease. Hy perinflated lungs which can be seen with obstructive lung disease. Head CT 10/19/19 14:40 IMPRESSION: MILD CHRONIC CHANGES OF ATROPHY AND MICROVASCULAR ISCHEMIA. NO ACU TE PROCESS. EVIDENCE OF ACUTE STROKE: NO. Head CTA 10/19/19 14:59 IMPRESSION: NO CTA EVIDENCE OF STENOSIS OR ANEURYSM OF THE [place] OF [place]. Neck CTA 10/19/19 14:59 IMPRESSION: There is some prominent calcified plaque in the left carotid bulb. There appears to be less than 50% stenosis of the ICA. The right vertebral artery is smaller than the left. Humerus X-Ray 10/20/19 00:00 IMPRESSION: No acute osseous abnormality of the right humerus. Venous Doppler Study 10/20/19 00:00 IMPRESSION: No deep vein thrombosis within the right upper extremity. 5.7 cm subcutaneous fluid collection adjacent to the antecubital fossa, which may represent an area of IV catheter infiltration. Carotid Doppler Study 10/22/19 00:00 IMPRESSION: 1. No hemodynamically significant stenosis. 2. Antegrade vertebral arteries. Chest X-Ray 10/26/19 00:00 IMPRESSION: Cardiomegaly without a superimposed acute cardiopulmonary process. Labs- All tests 24 hr 10/28/19 10/28/19 05:07 05:07 WBC 6.9 RBC 4.02 Hgb 12.7 Hct 37.9 MCV 94 MCH 31.6 MCHC 33.6 RDW 14.4 H Plt Count 127 L Sodium 132.9 L Potassium 4.5 Chloride 100 Carbon Dioxide 26 Anion Gap 7 BUN 38 H Creatinine 2.56 H Est GFR ( Amer) 22 L Est GFR (MDRD) Non-Af 18 L Glucose 89 Calcium 8.0 L IMPRESSION/RECOMMENDATION: 1. Prolonged chest tightness: This is resolved. Doubt if this is unstable angina. In spite of the 4 hours of chest pain tightness that the patient had her troponin is only borderline elevated and is now trending down. The patient is on nitrates, but due to the patient's low blood pressure will discontinue this. Also the patient troponin is come down and hence no definite evidence of non-ST elevation [place]. Later 4 to 6 weeks after the acute CVA we would recommend that the patient have a IV Lexiscan Cardiolite stress test. Unfortunately the patient is EKG showed left bundle branch block pattern and hence is non- diagnostic. 2. Acute embolic CVA: Patient improving. Agree with anticoagulation. 3. Atrial fibrillation with controlled ventricular response. Note that the patient has a long history of intermittent palpitations. Most likely the patient has had paroxysmal atrial fibrillation. The patient's corrected Marbin vas 2 score is is 5. Hence chronic anticoagulation is indicated. Agree with Dolores. Continue Lopressor. At present the goal is to control the patient's heart rate. Would consider chemical or electrical cardiovesion. 4. Acute renal failure.: We will start the patient on midodrine. Suspect that the patient dehydration and hypotension other causes of the patient's deterioration of renal function. We will hold the patient's losartan for now. 5. Cardiomyopathy with severely reduced LV ejection fraction. Continue beta- leah. Continue the patient on Entresto. We will watch out for any side effects or intolerance. In that case will go back to losartan later when the patient renal function improves. Until then we will start the patient on hydralazine at 10 mg p.o. every 8 hours, along with a beta-leah. 6. Hypertension: Patient blood pressures have improved since yesterday but to be able to give good anti-cardiomyopathy medication will start the patient on midodrine 5 mg p.o. 3 times daily... Note on admission the patient's blood pressure was very high. 7. Obesity: The patient has symptoms of sleep apnea. Would recommend the patient have a sleep study. This can be done as an outpatient. Medications reviewed. Medications adjusted. New medications added, hence medical decision making is of high complexity due to multiple medication changes. Medical regimen and management plan discussed with attending provider on the case. 40 minutes spent as patient with more than 50% time spent in direct patient care will follow
--- NOTE | 2019-10-28 23:51 | Progress Note ---
Provider Note Provider Note: CARDIOLOGY PROGRESS NOTE by Dr. Yasmine Johnson on 10/27/2019. SUBJECTIVE: The patient last night was hypotensive. The patient appears to be dehydrated and also having problems with her blood pressure. Also her heart rate is slightly on the lower side. We will decrease the patient's beta- leah. Also the patient at present in acute renal failure. Hence we will hold the patient's losartan. We will start the patient on midodrine due to the patient's hypotension. There is no bleeding on Eliquis. In view of the patient's acute renal failure will decrease the patient's dose of Eliquis to 2.5 mg p.o. twice daily. Also if the patient's blood pressure does not come up with the Midrin will gently hydrate the patient since the patient appears to be dehydrated by clinical exam. The patient continues to be in atrial fibrillation. There is no rapid ventricular response. There is no ventricular arrhythmias seen. There is no progression of TIA CVA she states she is fully recovered her strength on the left side. PHYSICAL EXAMINATION: The patient is moderately obese. In no acute distress. Selected Entries 10/27/19 11:20 Temperature 97.9 F Temperature Oral Source Pulse Rate 65 Respiratory 16 Rate Blood Pressure 93/49 L Blood Pressure 63 Mean BP Location Left Arm BP Position Supine O2 Sat by Pulse 92 Oximetry Oxygen Delivery Room Air Method HEAD: Is atraumatic normocephalic. EYES: Pupils equal round regular reactive to light accommodation. Extraocular movements are normal. There is no conjunctival pallor. There is no scleral icterus. EARS: External auditory canals are clear. Tympanic membranes are intact. NOSE: There is no deviated nasal septum. There is no inflammation nasal mucous membrane. MOUTH: Mucous membranes of the mouth are moist. Tongue is moist. There is no ulcers. There is no bleeding from the gums. THROAT: There is no redness of the oropharynx. There is no exudates. SKIN: There is no skin rashes. There is no petechia or ecchymosis. NECK: Is supple. There is no JVD. Carotids are equal there is no bruit. There is no lymphadenopathy. There is no goiter. There is no accessory muscle respiration use. Trachea central. LUNGS: Is clear to auscultation percussion without any rhonchi rales or wheezing. HEART: S1-S2 is heard. S1 is of variable intensity. There is systolic murmur left sternal border and the apex there is no rub. ABDOMEN: Is obese. Nontender. There is no hepatosple nomegaly. Bowel sounds are well heard. EXTREMITIES: Femorals are deep. Femorals are diminished. Leg pulses are diminished. There is 1+ edema bilaterally. There is no DVT or cellulitis. There is no calf tenderness. RD SCIENTIST: The patient is conscious awake alert oriented x3 with very mild left-sided weakness. PSYCHIATRIC: Patient judgment insight are intact his affect is normal. Head MRI 10/19/19 00:00 IMPRESSION: MULTIPLE SMALL FOCI OF ACUTE INFARCT WHICH INVOLVES SEGMENTS OF THE RIGHT INSULAR CORTEX, DILLARD RADIATA AND CORTICAL/SUBCORTICAL AREAS IN THE POSTERIOR FRONTAL AND PARIETAL LOBE WELL TWO SMALL FOCI IN THE OCCIPITAL LOBE GENERALIZED ATROPHY WITH PERIVENTRICULAR WHITE MATTER DISEASE AND MICROVASCULAR ISCHEMIC CHANGES Dr. Salinas was called and notified of the findings at 8:27 PM. Chest X-Ray 10/19/19 14:40 IMPRESSION: Moderate cardiomegaly. No acute cardiopulmonary disease. Hyperinflated lungs which can be seen with obstructive lung disease. Head CT 10/19/19 14:40 IMPRESSION: MILD CHRONIC CHANGES OF ATROPHY AND MICROVASCULAR ISCHEMIA. NO ACUTE PROCESS. EVIDENCE OF ACUTE STROKE: NO. Head CTA 10/19/19 14:59 IMPRESSION: NO CTA EVIDENCE OF STENOSIS OR ANEURYSM OF THE [place]. Neck CTA 10/19/19 14:59 IMPRESSION: There is some prominent calcified plaque in the left carotid bulb. There appears to be less than 50% stenosis of the ICA. The right vertebral artery is smaller than the left. Humerus X-Ray 10/20/19 00:00 IMPRESSION: No acute osseous abnormality of the right humerus. Venous Doppler Study 10/20/19 00:00 IMPRESSION: No deep vein thrombosis within the right upper extremity. 5.7 cm subcutaneous fluid collection adjacent to the antecubital fossa, which may represent an area of IV catheter infiltration. Carotid Doppler Study 10/22/19 00:00 IMPRESSION: 1. No hemodynamically significant stenosis. 2. Antegrade vertebral arteries. Chest X-Ray 10/26/19 00:00 IMPRESSION: Cardiomegaly without a superimposed acute cardiopulmonary process. Labs- Entire Visit 10/19/19 10/19/19 10/19/19 14:58 15:01 15:01 WBC 8.1 RBC 4.56 Hgb 14.4 Hct 43.2 MCV 95 MCH 31.6 MCHC 33.4 RDW 14.1 H Plt Count 129 L Lymph % (Auto) 19.3 [place] % (Auto) 6.0 Eos % (Auto) 1.8 Baso % (Auto) 1.0 Absolute Neuts (auto) 5.8 Absolute Lymphs (auto) 1.6 Absolute Monos (auto) 0.5 Absolute Eos (auto) 0.1 Absolute Basos (auto) 0.1 Seg Neutrophils % 71.9 PT 15.8 H INR 1.25 APTT 25.5 Sodium Potassium Chloride Carbon Dioxide Anion Gap BUN Creatinine Est GFR ( Amer) Est GFR (MDRD) Non-Af Glucose POC Glucose 134 H Hemoglobin A1c % Calcium Phosphorus Magnesium Total Bilirubin Direct Bilirubin Neonat Total Bilirubin Neonat Direct Bilirubin Neonat Indirect Bili AST ALT Alkaline Phosphatase Creatine Kinase CK-MB (CK-2) Troponin I Total Protein Albumin Triglycerides Cholesterol LDL Cholesterol Direct VLDL Cholesterol HDL Cholesterol TSH Free T4 Free T3 pg/mL Cortisol AM Sample Urine Color Urine Appearance Urine pH Ur Specific [place] Urine Protein Urine Glucose (UA) Urine Ketones Urine Blood Urine Nitrite (Reflex) Urine Bilirubin Urine Urobilinogen Leukocyte Esterase Rfl Urine RBC (Auto) U Hyaline Cast (Auto) Urine Bacteria (Auto) Urine WBC (Reflex) Squamous Epi Cells Auto Urine Mucus (Auto) Urine Ascorbic Acid Heparin-induced Plt Ab 10/19/19 10/19/19 10/19/19 15:01 15:01 22:06 WBC RBC Hgb Hct MCV MCH MCHC RDW Plt Count Lymph % (Auto) [place] % (Auto) Eos % (Auto) Baso % (Auto) Absolute Neuts (auto) Absolute Lymphs (auto) Absolute Monos (auto) Absolute Eos (auto) Absolute Basos (auto) Seg Neutrophils % PT INR APTT Sodium 139.3 Potassium 4.1 Chloride 108 H Carbon Dioxide 24 Anion Gap 7 BUN 16 Creatinine 1.18 Est GFR ( Amer) 54 L Est GFR (MDRD) Non-Af 45 L Glucose 148 H POC Glucose Hemoglobin A1c % Calcium 9.5 Phosphorus Magnesium Total Bilirubin 0.8 Direct Bilirubin 0.1 Neonat Total Bilirubin Not Reportable Neonat Direct Bilirubin Not Reportable Neonat Indirect Bili Not Reportable AST 26 ALT 10 Alkaline Phosphatase 58 Creatine Kinase 22 L CK-MB (CK-2) 0.55 Troponin I 0.015 0.014 Total Protein 7.5 Albumin 3.9 Triglycerides Cholesterol LDL Cholesterol Direct VLDL Cholesterol HDL Cholesterol TSH Free T4 Free T3 pg/mL Cortisol AM Sample Urine Color Urine Appearance Urine pH Ur Specific [place] Urine Protein Urine Glucose (UA) Urine Ketones Urine Blood Urine Nitrite (Reflex) Urine Bilirubin Urine Urobilinogen Leukocyte Esterase Rfl Urine RBC (Auto) U Hyaline Cast (Auto) Urine Bacteria (Auto) Urine WBC (Reflex) Squamous Epi Cells Auto Urine Mucus (Auto) Urine Ascorbic Acid Heparin-induced Plt Ab 10/19/19 10/20/19 10/20/19 22:06 04:22 06:15 WBC RBC Hgb Hct MCV MCH MCHC RDW Plt Count Lymph % (Auto) [place] % (Auto) Eos % (Auto) Baso % (Auto) Absolute Neuts (auto) Absolute Lymphs (auto) Absolute Monos (auto) Absolute Eos (auto) Absolute Basos (auto) Seg Neutrophils % PT INR APTT Sodium 142.2 Potassium 3.4 L Chloride 111 H Carbon Dioxide 21 L Anion Gap 10 BUN 18 Creatinine 1.16 Est GFR ( Amer) 56 L Est GFR (MDRD) Non-Af 46 L Glucose 86 POC Glucose Hemoglobin A1c % Calcium 9.1 Phosphorus Magnesium Total Bilirubin 0.8 Direct Bilirubin 0.1 Neonat Total Bilirubin Not Reportable Neonat Direct Bilirubin Not Reportable Neonat Indirect Bili Not Reportable AST 23 ALT 9 Alkaline Phosphatase 44 Creatine Kinase CK-MB (CK-2) Troponin I 0.015 Total Protein 6.9 Albumin 3.4 L Triglycerides 70 Cholesterol 131.10 LDL Cholesterol Direct 82 VLDL Cholesterol 14.0 HDL Cholesterol 36 L TSH 2.25 Free T4 1.30 Free T3 pg/mL 2.57 L Cortisol AM Sample Urine Color Urine Appearance Urine pH Ur Specific [place] Urine Protein Urine Glucose (UA) Urine Ketones Urine Blood Urine Nitrite (Reflex) Urine Bilirubin Urine Urobilinogen Leukocyte Esterase Rfl Urine RBC (Auto) U Hyaline Cast (Auto) Urine Bacteria (Auto) Urine WBC (Reflex) Squamous Epi Cells Auto Urine Mucus (Auto) Urine Ascorbic Acid Heparin-induced Plt Ab 10/20/19 10/20/19 10/20/19 06:15 06:15 06:15 WBC 7.2 RBC 4.06 Hgb 12.8 Hct 38.2 MCV 94 MCH 31.6 MCHC 33.6 RDW 14.2 H Plt Count 90 L Lymph % (Auto) 36.8 [place] % (Auto) 7.2 Eos % (Auto) 2.3 Baso % (Auto) 0.3 Absolute Neuts (auto) 3.9 Absolute Lymphs (auto) 2.7 Absolute Monos (auto) 0.5 Absolute Eos (auto) 0.2 Absolute Basos (auto) 0.0 Seg Neutrophils % 53.4 PT 17.4 H INR 1.41 APTT > 235.0 H* Sodium Potassium Chloride Carbon Dioxide Anion Gap BUN Creatinine Est GFR ( Amer) Est GFR (MDRD) Non-Af Glucose POC Glucose Hemoglobin A1c % 5.4 Calcium Phosphorus Magnesium Total Bilirubin Direct Bilirubin Neonat Total Bilirubin Neonat Direct Bilirubin Neonat Indirect Bili AST ALT Alkaline Phosphatase Creatine Kinase CK-MB (CK-2) Troponin I Total Protein Albumin Triglycerides Cholesterol LDL Cholesterol Direct VLDL Cholesterol HDL Cholesterol TSH Free T4 Free T3 pg/mL Cortisol AM Sample Urine Color Urine Appearance Urine pH Ur Specific [place] Urine Protein Urine Glucose (UA) Urine Ketones Urine Blood Urine Nitrite (Reflex) Urine Bilirubin Urine Urobilinogen Leukocyte Esterase Rfl Urine RBC (Auto) U Hyaline Cast (Auto) Urine Bacteria (Auto) Urine WBC (Reflex) Squamous Epi Cells Auto Urine Mucus (Auto) Urine Ascorbic Acid Heparin-induced Plt Ab 10/20/19 10/20/19 10/20/19 07:36 10:24 13:46 WBC RBC Hgb Hct MCV MCH MCHC RDW Plt Count Lymph % (Auto) [place] % (Auto) Eos % (Auto) Baso % (Auto) Absolute Neuts (auto) Absolute Lymphs (auto) Absolute Monos (auto) Absolute Eos (auto) Absolute Basos (auto) Seg Neutrophils % PT 16.6 H INR 1.33 APTT > 235.0 H* 72.4 H 30.1 Sodium Potassium Chloride Carbon Dioxide Anion Gap BUN Creatinine Est GFR ( Amer) Est GFR (MDRD) Non-Af Glucose POC Glucose Hemoglobin A1c % Calcium Phosphorus Magnesium Total Bilirubin Direct Bilirubin Neonat Total Bilirubin Neonat Direct Bilirubin Neonat Indirect Bili AST ALT Alkaline Phosphatase Creatine Kinase CK-MB (CK-2) Troponin I Total Protein Albumin Triglycerides Cholesterol LDL Cholesterol Direct VLDL Cholesterol HDL Cholesterol TSH Free T4 Free T3 pg/mL Cortisol AM Sample Urine Color Urine Appearance Urine pH Ur Specific [place] Urine Protein Urine Glucose (UA) Urine Ketones Urine Blood Urine Nitrite (Reflex) Urine Bilirubin Urine Urobilinogen Leukocyte Esterase Rfl Urine RBC (Auto) U Hyaline Cast (Auto) Urine Bacteria (Auto) Urine WBC (Reflex) Squamous Epi Cells Auto Urine Mucus (Auto) Urine Ascorbic Acid Heparin-induced Plt Ab 10/20/19 10/21/19 10/21/19 18:25 04:23 04:23 WBC 4.7 RBC 3.64 L Hgb 11.5 L Hct 34.5 L MCV 95 MCH 31.7 MCHC 33.5 RDW 14.1 H Plt Count 75 L Lymph % (Auto) 45.0 [place] % (Auto) 9.8 Eos % (Auto) 5.0 Baso % (Auto) 1.0 Absolute Neuts (auto) 1.9 Absolute Lymphs (auto) 2.1 Absolute Monos (auto) 0.5 Absolute Eos (auto) 0.2 Absolute Basos (auto) 0.0 Seg Neutrophils % 39.2 L PT INR APTT Sodium 138.7 Potassium 4.2 Chloride 111 H Carbon Dioxide 23 Anion Gap 5 BUN 15 Creatinine 1.00 Est GFR ( Amer) > 60 Est GFR (MDRD) Non-Af 55 L Glucose 81 POC Glucose Hemoglobin A1c % Calcium 8.5 Phosphorus 3.9 Magnesium 1.3 L Total Bilirubin Direct Bilirubin Neonat Total Bilirubin Neonat Direct Bilirubin Neonat Indirect Bili AST ALT Alkaline Phosphatase Creatine Kinase CK-MB (CK-2) Troponin I Total Protein Albumin Triglycerides Cholesterol LDL Cholesterol Direct VLDL Cholesterol HDL Cholesterol TSH Free T4 Free T3 pg/mL Cortisol AM Sample Urine Color YELLOW Urine Appearance SLIGHTLY-CLOUDY Urine pH 5.0 Ur Specific [place] 1.042 Urine Protein 30 H Urine Glucose (UA) NEGATIVE Urine Ketones NEGATIVE Urine Blood NEGATIVE Urine Nitrite (Reflex) NEGATIVE Urine Bilirubin NEGATIVE Urine Urobilinogen NEGATIVE Leukocyte Esterase Rfl MODERATE H Urine RBC (Auto) 1 U Hyaline Cast (Auto) 1 Urine Bacteria (Auto) 2+ Urine WBC (Reflex) 21 Squamous Epi Cells Auto 2 Urine Mucus (Auto) RARE Urine Ascorbic Acid NEGATIVE Heparin-induced Plt Ab 10/22/19 10/22/19 10/22/19 05:05 05:05 16:16 WBC 5.3 RBC 3.88 Hgb 12.2 Hct 36.3 MCV 94 MCH 31.6 MCHC 33.7 RDW 14.4 H Plt Count 87 L Lymph % (Auto) 41.9 [place] % (Auto) 10.0 Eos % (Auto) 5.8 Baso % (Auto) 1.3 Absolute Neuts (auto) 2.2 Absolute Lymphs (auto) 2.2 Absolute Monos (auto) 0.5 Absolute Eos (auto) 0.3 Absolute Basos (auto) 0.1 Seg Neutrophils % 41.0 L PT INR APTT Sodium 137.7 Potassium 4.0 Chloride 108 H Carbon Dioxide 23 Anion Gap 7 BUN 16 Creatinine 1.02 Est GFR ( Amer) > 60 Est GFR (MDRD) Non-Af 53 L Glucose 87 POC Glucose Hemoglobin A1c % Calcium 8.6 Phosphorus 3.7 Magnesium 1.4 L Total Bilirubin Direct Bilirubin Neonat Total Bilirubin Neonat Direct Bilirubin Neonat Indirect Bili AST ALT Alkaline Phosphatase Creatine Kinase CK-MB (CK-2) Troponin I Total Protein Albumin Triglycerides Cholesterol LDL Cholesterol Direct VLDL Cholesterol HDL Cholesterol TSH Free T4 Free T3 pg/mL Cortisol AM Sample Urine Color Urine Appearance Urine pH Ur Specific [place] Urine Protein Urine Glucose (UA) Urine Ketones Urine Blood Urine Nitrite (Reflex) Urine Bilirubin Urine Urobilinogen Leukocyte Esterase Rfl Urine RBC (Auto) U Hyaline Cast (Auto) Urine Bacteria (Auto) Urine WBC (Reflex) Squamous Epi Cells Auto Urine Mucus (Auto) Urine Ascorbic Acid Heparin-induced Plt Ab 0.084 10/23/19 10/23/19 10/24/19 04:03 04:03 04:28 WBC 6.5 6.1 RBC 3.86 4.04 Hgb 12.2 12.7 Hct 35.9 L 37.7 MCV 93 93 MCH 31.5 31.6 MCHC 33.9 33.8 RDW 14.2 H 13.9 Plt Count 99 L 100 L Lymph % (Auto) 35.7 30.0 [place] % (Auto) 9.8 11.6 Eos % (Auto) 9.2 H 8.0 H Baso % (Auto) 0.2 1.1 Absolute Neuts (auto) 2.9 3.0 Absolute Lymphs (auto) 2.3 1.8 Absolute Monos (auto) 0.6 0.7 Absolute Eos (auto) 0.6 0.5 Absolute Basos (auto) 0.0 0.1 Seg Neutrophils % 45.1 49.3 PT INR APTT Sodium 137.8 Potassium 4.0 Chloride 107 Carbon Dioxide 23 Anion Gap 8 BUN 16 Creatinine 1.08 Est GFR ( Amer) > 60 Est GFR (MDRD) Non-Af 50 L Glucose 88 POC Glucose Hemoglobin A1c % Calcium 8.8 Phosphorus 3.8 Magnesium 1.3 L Total Bilirubin Direct Bilirubin Neonat Total Bilirubin Neonat Direct Bilirubin Neonat Indirect Bili AST ALT Alkaline Phosphatase Creatine Kinase CK-MB (CK-2) Troponin I Total Protein Albumin Triglycerides Cholesterol LDL Cholesterol Direct VLDL Cholesterol HDL Cholesterol TSH Free T4 Free T3 pg/mL Cortisol AM Sample Urine Color Urine Appearance Urine pH Ur Specific [place] Urine Protein Urine Glucose (UA) Urine Ketones Urine Blood Urine Nitrite (Reflex) Urine Bilirubin Urine Urobilinogen Leukocyte Esterase Rfl Urine RBC (Auto) U Hyaline Cast (Auto) Urine Bacteria (Auto) Urine WBC (Reflex) Squamous Epi Cells Auto Urine Mucus (Auto) Urine Ascorbic Acid Heparin-induced Plt Ab 10/24/19 10/25/19 10/25/19 04:28 04:54 04:54 WBC 6.8 RBC 4.20 Hgb 13.3 Hct 39.3 MCV 94 MCH 31.6 MCHC 33.8 RDW 14.1 H Plt Count 115 L Lymph % (Auto) [place] % (Auto) Eos % (Auto) Baso % (Auto) Absolute Neuts (auto) Absolute Lymphs (auto) Absolute Monos (auto) Absolute Eos (auto) Absolute Basos (auto) Seg Neutrophils % PT INR APTT Sodium 137.0 135.9 L Potassium 4.0 3.7 Chloride 103 101 Carbon Dioxide 26 28 Anion Gap 8 7 BUN 18 18 Creatinine 1.18 1.12 Est GFR ( Amer) 54 L 58 L Est GFR (MDRD) Non-Af 45 L 48 L Glucose 94 99 POC Glucose Hemoglobin A1c % Calcium 8.6 8.8 Phosphorus 4.0 Magnesium 2.3 Total Bilirubin Direct Bilirubin Neonat Total Bilirubin Neonat Direct Bilirubin Neonat Indirect Bili AST ALT Alkaline Phosphatase Creatine Kinase CK-MB (CK-2) Troponin I Total Protein Albumin Triglycerides Cholesterol LDL Cholesterol Direct VLDL Cholesterol HDL Cholesterol TSH Free T4 Free T3 pg/mL Cortisol AM Sample Urine Color Urine Appearance Urine pH Ur Specific [place] Urine Protein Urine Glucose (UA) Urine Ketones Urine Blood Urine Nitrite (Reflex) Urine Bilirubin Urine Urobilinogen Leukocyte Esterase Rfl Urine RBC (Auto) U Hyaline Cast (Auto) Urine Bacteria (Auto) Urine WBC (Reflex) Squamous Epi Cells Auto Urine Mucus (Auto) Urine Ascorbic Acid Heparin-induced Plt Ab 10/26/19 10/26/19 10/26/19 01:26 01:26 07:33 WBC RBC Hgb Hct MCV MCH MCHC RDW Plt Count Lymph % (Auto) [place] % (Auto) Eos % (Auto) Baso % (Auto) Absolute Neuts (auto) Absolute Lymphs (auto) Absolute Monos (auto) Absolute Eos (auto) Absolute Basos (auto) Seg Neutrophils % PT INR APTT Sodium Potassium Chloride Carbon Dioxide Anion Gap BUN Creatinine Est GFR ( Amer) Est GFR (MDRD) Non-Af Glucose POC Glucose Hemoglobin A1c % Calcium Phosphorus Magnesium Total Bilirubin Direct Bilirubin Neonat Total Bilirubin Neonat Direct Bilirubin Neonat Indirect Bili AST ALT Alkaline Phosphatase Creatine Kinase 71 65 CK-MB (CK-2) 0.56 Troponin I 0.093 Total Protein Albumin Triglycerides Cholesterol LDL Cholesterol Direct VLDL Cholesterol HDL Cholesterol TSH Free T4 Free T3 pg/mL Cortisol AM Sample Urine Color Urine Appearance Urine pH Ur Specific [place] Urine Protein Urine Glucose (UA) Urine Ketones Urine Blood Urine Nitrite (Reflex) Urine Bilirubin Urine Urobilinogen Leukocyte Esterase Rfl Urine RBC (Auto) U Hyaline Cast (Auto) Urine Bacteria (Auto) Urine WBC (Reflex) Squamous Epi Cells Auto Urine Mucus (Auto) Urine Ascorbic Acid Heparin-induced Plt Ab 10/26/19 10/26/19 10/26/19 07:33 12:15 12:15 WBC RBC Hgb Hct MCV MCH MCHC RDW Plt Count Lymph % (Auto) [place] % (Auto) Eos % (Auto) Baso % (Auto) Absolute Neuts (auto) Absolute Lymphs (auto) Absolute Monos (auto) Absolute Eos (auto) Absolute Basos (auto) Seg Neutrophils % PT INR APTT Sodium Potassium Chloride Carbon Dioxide Anion Gap BUN Creatinine Est GFR ( Amer) Est GFR (MDRD) Non-Af Glucose POC Glucose Hemoglobin A1c % Calcium Phosphorus Magnesium Total Bilirubin Direct Bilirubin Neonat Total Bilirubin Neonat Direct Bilirubin Neonat Indirect Bili AST ALT Alkaline Phosphatase Creatine Kinase 63 CK-MB (CK-2) 0.62 0.43 Troponin I 0.121 0.099 Total Protein Albumin Triglycerides Cholesterol LDL Cholesterol Direct VLDL Cholesterol HDL Cholesterol TSH Free T4 Free T3 pg/mL Cortisol AM Sample Urine Color Urine Appearance Urine pH Ur Specific [place] Urine Protein Urine Glucose (UA) Urine Ketones Urine Blood Urine Nitrite (Reflex) Urine Bilirubin Urine Urobilinogen Leukocyte Esterase Rfl Urine RBC (Auto) U Hyaline Cast (Auto) Urine Bacteria (Auto) Urine WBC (Reflex) Squamous Epi Cells Auto Urine Mucus (Auto) Urine Ascorbic Acid Heparin-induced Plt Ab 10/26/19 10/27/19 10/27/19 17:53 05:12 05:12 WBC 7.6 RBC 4.25 Hgb 13.3 Hct 39.7 MCV 93 MCH 31.2 MCHC 33.5 RDW 14.1 H Plt Count 122 L Lymph % (Auto) [place] % (Auto) Eos % (Auto) Baso % (Auto) Absolute Neuts (auto) Absolute Lymphs (auto) Absolute Monos (auto) Absolute Eos (auto) Absolute Basos (auto) Seg Neutrophils % PT INR APTT Sodium 134.3 L Potassium 4.0 Chloride 100 Carbon Dioxide 28 Anion Gap 6 BUN 33 H Creatinine 2.36 H Est GFR ( Amer) 24 L Est GFR (MDRD) Non-Af 20 L Glucose 95 POC Glucose Hemoglobin A1c % Calcium 8.2 L Phosphorus Magnesium Total Bilirubin Direct Bilirubin Neonat Total Bilirubin Neonat Direct Bilirubin Neonat Indirect Bili AST ALT Alkaline Phosphatase Creatine Kinase CK-MB (CK-2) Troponin I 0.084 Total Protein Albumin Triglycerides Cholesterol LDL Cholesterol Direct VLDL Cholesterol HDL Cholesterol TSH Free T4 Free T3 pg/mL Cortisol AM Sample Urine Color Urine Appearance Urine pH Ur Specific [place] Urine Protein Urine Glucose (UA) Urine Ketones Urine Blood Urine Nitrite (Reflex) Urine Bilirubin Urine Urobilinogen Leukocyte Esterase Rfl Urine RBC (Auto) U Hyaline Cast (Auto) Urine Bacteria (Auto) Urine WBC (Reflex) Squamous Epi Cells Auto Urine Mucus (Auto) Urine Ascorbic Acid Heparin-induced Plt Ab 10/27/19 05:12 WBC RBC Hgb Hct MCV MCH MCHC RDW Plt Count Lymph % (Auto) [place] % (Auto) Eos % (Auto) Baso % (Auto) Absolute Neuts (auto) Absolute Lymphs (auto) Absolute Monos (auto) Absolute Eos (auto) Absolute Basos (auto) Seg Neutrophils % PT INR APTT Sodium Potassium Chloride Carbon Dioxide Anion Gap BUN Creatinine Est GFR ( Amer) Est GFR (MDRD) Non-Af Glucose POC Glucose Hemoglobin A1c % Calcium Phosphorus Magnesium Total Bilirubin Direct Bilirubin Neonat Total Bilirubin Neonat Direct Bilirubin Neonat Indirect Bili AST ALT Alkaline Phosphatase Creatine Kinase CK-MB (CK-2) Troponin I Total Protein Albumin Triglycerides Cholesterol LDL Cholesterol Direct VLDL Cholesterol HDL Cholesterol TSH Free T4 Free T3 pg/mL Cortisol AM Sample 7.89 Urine Color Urine Appearance Urine pH Ur Specific [place] Urine Protein Urine Glucose (UA) Urine Ketones Urine Blood Urine Nitrite (Reflex) Urine Bilirubin Urine Urobilinogen Leukocyte Esterase Rfl Urine RBC (Auto) U Hyaline Cast (Auto) Urine Bacteria (Auto) Urine WBC (Reflex) Squamous Epi Cells Auto Urine Mucus (Auto) Urine Ascorbic Acid Heparin-induced Plt Ab Head MRI 10/19/19 00:00 IMPRESSION: MULTIPLE SMALL FOCI OF ACUTE INFARCT WHICH INVOLVES SEGMENTS OF THE RIGHT INSULAR CORTEX, DILLARD RADIATA AND CORTICAL/SUBCORTICAL AREAS IN THE POSTERIOR FRONTAL AND PARIETAL LOBE WELL TWO SMALL FOCI IN THE OCCIPITAL LOBE GENERALIZED ATROPHY WITH PERIVENTRICULAR WHITE MATTER DISEASE AND MICROVASCULAR ISCHEMIC CHANGES Dr. Salinas was called and notified of the findings at 8:27 PM. Chest X-Ray 10/19/19 14:40 IMPRESSION: Moderate cardiomegaly. No acute cardiopulmonary disease. Hyperinflated lungs which can be seen with obstructive lung disease. Head CT 10/19/19 14:40 IMPRESSION: MILD CHRONIC CHANGES OF ATROPHY AND MICROVASCULAR ISCHEMIA. NO ACUTE PROCESS. EVIDENCE OF ACUTE STROKE: NO. Head CTA 10/19/19 14:59 IMPRESSION: NO CTA EVIDENCE OF STENOSIS OR ANEURYSM OF THE [place]. Neck CTA 10/19/19 14:59 IMPRESSION: There is some prominent calcified plaque in the left carotid bulb. There appears to be less than 50% stenosis of the ICA. The right vertebral artery is smaller than the left. Humerus X-Ray 10/20/19 00:00 IMPRESSION: No acute osseous abnormality of the right humerus. Venous Doppler Study 10/20/19 00:00 IMPRESSION: No deep vein thrombosis within the right upper extremity. 5.7 cm subcutaneous fluid collection adjacent to the antecubital fossa, which may represent an area of IV catheter infiltration. Carotid Doppler Study 10/22/19 00:00 IMPRESSION: 1. No hemodynamically significant stenosis. 2. Antegrade vertebral arteries. Chest X-Ray 10/26/19 00:00 IMPRESSION: Cardiomegaly without a superimposed acute cardiopulmonary process. IMPRESSION/RECOMMENDATION: 1. Prolonged chest tightness: This is resolved. Doubt if this is unstable angina. In spite of the 4 hours of chest pain tightness that the patient had her troponin is only borderline elevated and is now trending down. The patient is on nitrates, but due to the patient's low blood pressure will discontinue this. Also the patient troponin is come down and hence no definite evidence of non-ST elevation CO. Later 4 to 6 weeks after the acute CVA we would recommend that the patient have a IV Lexiscan Cardiolite stress test. Unfortunately the patient is EKG showed left bundle branch block pattern and hence is non- diagnostic. 2. Acute embolic CVA: Patient improving. Agree with anticoagulation. 3. Atrial fibrillation with controlled ventricular response. Note that the patient has a long history of intermittent palpitations. Most likely the patient has had paroxysmal atrial fibrillation. The patient's corrected Marbin vas 2 score is is 5. Hence chronic anticoagulation is indicated. Agree with Eliquis. Continue Lopressor. At present the goal is to control the patient's heart rate. Would consider chemical or electrical cardiovesion. 4. Acute renal failure.: We will start the patient on midodrine. Suspect that the patient dehydration and hypotension other causes of the patient's deterioration of renal function. We will hold the patient's losartan for now. 5. Cardiomyopathy with severely reduced LV ejection fraction. Continue beta- leah. Continue the patient on Entresto. We will watch out for any side effects or intolerance. In that case will go back to losartan later when the patient renal function improves. Along with a beta-leah. 6. Hypertension: Patient blood pressuresis acceptable.. Note on admission the patient's blood pressure was very high. 7. Obesity: The patient has symptoms of sleep apnea. Would recommend the patient have a sleep study. This can be done as an outpatient. Medications reviewed. Medications adjusted. Medical decision making is of high complexity due to multiple medication changes. Medical regimen and management plan discussed with attending provider on the case. 40 minutes spent as patient with more than 50% time spent in direct patient care will follow
[2019-10-29 05:43] LABS: ANION GAP 6 (5-19); BLOOD UREA NITROGEN 32 mg/dL (7-20); CALCIUM 8.5 mg/dL (8.4-10.2); CARBON DIOXIDE 27 mmol/L (22-30); CHLORIDE 104 mmol/L (98-107); GLUCOSE 92 mg/dL (75-110); POTASSIUM 4.1 mmol/L (3.6-5.0)
[2019-10-29] MEDS: HYDRALAZINE HCL 10 MG TABLET PO SCH ×3 (06:43→21:15)
[2019-10-29] MEDS: GABAPENTIN 100 MG CAPSULE PO SCH ×3 (10:21→18:42)
[2019-10-29] MEDS: MIDODRINE HCL 5 MG TABLET PO SCH ×3 (10:22→18:41)
[2019-10-29] MEDS: FLUOXETINE HCL 20 MG CAPSULE PO SCH (10:22)
[2019-10-29] MEDS: APIXABAN 2.5 MG TABLET PO SCH ×2 (10:23→18:41)
--- NOTE | 2019-10-29 13:32 | PDOC PROGRESS REPORT ---
Subjective Progress Note for:: 10/29/19 Subjective:: Patient was seen on morning rounds. Found resting in bed, comfortably, on room air. She is A&O x4. She feels fine this morning. She denies development of any new symptoms. The temperature in the room is exceedingly hot; patient states she is comfortable ("like it warm."). Denies fever or chills; none noter per nursing. She denies headache, dizziness, chest pain, palpitations, dyspnea, orthopnea, abdominal pain, nausea, vomiting, and diarrhea. She has no questions or concerns today. Reason For Visit: AFIB RVR, STROKE LIKE SYMPTOMS Physical Exam Vital Signs: Temp Pulse Resp BP Pulse Ox 99.3 F 89 18 115/76 92 10/29/19 11:58 10/29/19 11:58 10/29/19 11:58 10/29/19 11:58 10/29/19 11:58 Intake & Output 10/28/19 10/29/19 10/30/19 06:59 06:59 06:59 Intake Total 2459 437 Balance 2459 437 Weight 77.6 kg 77.1 kg General appearance: PRESENT: no acute distress, cooperative, obese, well- developed, well-nourished Head exam: PRESENT: atraumatic, normocephalic Eye exam: PRESENT: conjunctiva pink, EOMI, PERRLA. ABSENT: scleral icterus Mouth exam: PRESENT: moist, tongue midline Respiratory exam: PRESENT: clear to auscultation rocky, symmetrical, unlabored. ABSENT: rales, rhonchi, wheezes Cardiovascular exam: PRESENT: irregular rhythm. ABSENT: diastolic murmur, rubs, systolic murmur Pulses: PRESENT: normal dorsalis pedis pul Vascular exam: PRESENT: normal capillary refill Extremities exam: PRESENT: full ROM. ABSENT: calf tenderness, clubbing, pedal edema Neurological exam: PRESENT: alert, awake, oriented to person, oriented to place, oriented to time, oriented to situation, CN II-XII grossly intact, other - slightly slurred speech, no facial asymetry or focal deficiets noted otherwise. ABSENT: motor sensory deficit Psychiatric exam: PRESENT: appropriate affect, normal mood. ABSENT: homicidal ideation, suicidal ideation Skin exam: PRESENT: dry, intact, warm. ABSENT: cyanosis, rash Results Laboratory Results: 10/28/19 05:07 10/29/19 05:09 10/29/19 05:09 Sodium 136.7 L Potassium 4.1 Chloride 104 Carbon Dioxide 27 Anion Gap 6 BUN 32 H Creatinine 1.63 H Est GFR ( Amer) 38 L Glucose 92 Calcium 8.5 10/19/19 10/19/19 10/19/19 15:01 15:01 22:06 Creatine Kinase 22 L CK-MB (CK-2) 0.55 Troponin I 0.015 0.014 10/20/19 10/26/19 10/26/19 06:15 01:26 01:26 Creatine Kinase 71 CK-MB (CK-2) 0.56 Troponin I 0.015 0.093 10/26/19 10/26/19 10/26/19 07:33 07:33 12:15 Creatine Kinase 65 63 CK-MB (CK-2) 0.62 Troponin I 0.121 10/26/19 10/26/19 12:15 17:53 Creatine Kinase CK-MB (CK-2) 0.43 Troponin I 0.099 0.084 Impressions: Head MRI 10/19/19 00:00 IMPRESSION: MULTIPLE SMALL FOCI OF ACUTE INFARCT WHICH INVOLVES SEGMENTS OF THE RIGHT INSULAR CORTEX, DILLARD RADIATA AND CORTICAL/SUBCORTICAL AREAS IN THE POSTERIOR FRONTAL AND PARIETAL LOBE WELL TWO SMALL FOCI IN THE OCCIPITAL LOBE GENERALIZED ATROPHY WITH PERIVENTRICULAR WHITE MATTER DISEASE AND MICROVASCULAR ISCHEMIC CHANGES Dr. Salinas was called and notified of the findings at 8:[address] 10/19/19 14:40 IMPRESSION: MILD CHRONIC CHANGES OF ATROPHY AND MICROVASCULAR ISCHEMIA. NO ACUTE PROCESS. EVIDENCE OF ACUTE STROKE: NO. Head CTA 10/19/19 14:59 IMPRESSION: NO CTA EVIDENCE OF STENOSIS OR ANEURYSM OF THE [place]. Neck CTA 10/19/19 14:59 IMPRESSION: There is some prominent calcified plaque in the left carotid bulb. There appears to be less than 50% stenosis of the ICA. The right vertebral artery is smaller than the left. Humerus X-Ray 10/20/19 00:00 IMPRESSION: No acute osseous abnormality of the right humerus. Venous Doppler Study 10/20/19 00:00 IMPRESSION: No deep vein thrombosis within the right upper extremity. 5.7 cm subcutaneous fluid collection adjacent to the antecubital fossa, which may represent an area of IV catheter infiltration. Carotid Doppler Study 10/22/19 00:00 IMPRESSION: 1. No hemodynamically significant stenosis. 2. Antegrade vertebral arteries. Chest X-Ray 10/26/19 00:00 IMPRESSION: Cardiomegaly without a superimposed acute cardiopulmonary process. Assessment and Plan - Diagnosis (1) PHILLY (acute kidney injury) Is this a current diagnosis for this admission?: Yes Plan: Improved; Cr 1.12-> 2.36-> 2.74-> 2.56-> 1.63. Baseline 1.2 Prerenal r/t hypotension. Discussed w/ Dr. Mcdonald. Medication were placed on hold; gradual resumption today. Encourage p.o. fluids Avoid nephrotoxic medications as able. Monitor I&Os Follow up chemistry (2) Hypotension Is this a current diagnosis for this admission?: Yes Plan: Resolved. Discussed with Dr. Mcdonald. Resuming some medications today. Encourage p.o. fluids. Continue Midodrine. (3) Chest pain Qualifiers: Chest pain type: unspecified Qualified Code(s): R07.9 - Chest pain, unspecified Is this a current diagnosis for this admission?: Yes Plan: No further episodes. EKG shows LBBB (noted on previous EKG) w/o ST segment changes. Troponin 0.093-> 0.121-> 0.099-> 0.[address] Mcdonald; unlikely to be NSTEMI. Possibly troponin leak related to cardiomyopathy. (4) Embolic stroke involving right middle cerebral artery Is this a current diagnosis for this admission?: Yes Plan: Carotid Doppler is negative for hemodynamically significant stenosis. Noted antegrade vertebral arteries. Echocardiogram shows LVEF 25 to 30% with moderate to severe global hypokinesis of the left ventricle. Bubble study is negative for intracardiac shunt. She is noted to have mild pulmonary hypertension. MRI head showed multiple small foci of acute infarcts involving segments to the posterior frontal and parietal lobes; two small foci to the occipital lobe. Continue daily statin therapy. Continue Eliquis. PT/OT consulted. Discharge planning consulted. (5) Systolic congestive heart failure Qualifiers: Heart failure chronicity: unspecified Qualified Code(s): I50.20 - Unspecified systolic (congestive) heart failure Is this a current diagnosis for this admission?: Yes Plan: Echocardiogram revealed LVEF 25 to 30% with moderate to severe global hypokinesis of the left ventricle. Cardiology consulted. Medications adjusted per Dr. Mcdonald. Resume hydralazine and metoprolol today Continues on aspirin and statin therapy. Cardiac diet. (6) Acute ischemic right MCA stroke Is this a current diagnosis for this admission?: Yes Plan: As above (7) Atrial fibrillation Qualifiers: Atrial fibrillation type: other persistent Qualified Code(s): I48.19 - Other persistent atrial fibrillation Is this a current diagnosis for this admission?: Yes Plan: Cardiology is consulted. Chads Vascor 5. We will begin Eliquis as the patient's platelets are now greater than [address] Mcdonald's expertise. (8) Hypertension Qualifiers: Hypertension type: essential hypertension Qualified Code(s): I10 - Essential (primary) hypertension Is this a current diagnosis for this admission?: Yes Plan: Medications as above. Cardiac diet. (9) Obesity (BMI 30-39.9) Is this a current diagnosis for this admission?: Yes Plan: Dietary and lifestyle modification are encouraged. Cardiac diet. Registered dietitian is consulted. (10) Traumatic ecchymosis of right upper arm Qualifiers: Encounter type: initial encounter Qualified Code(s): S40.021A - Contusion of right upper arm, initial encounter Is this a current diagnosis for this admission?: Yes Plan: Nearly resolved. 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 - Time Time Spent with patient: 25-34 minutes Medications reviewed and adjusted accordingly: Yes Anticipated discharge: Home with Homehealth
[2019-10-29] MEDS: METOPROLOL SUCCINATE 25 MG TAB.SR.24H PO SCH (14:20)
[2019-10-29] MEDS: ATORVASTATIN CALCIUM 40 MG TABLET PO SCH (21:15)
--- NOTE | 2019-10-29 21:49 | Progress Note ---
Provider Note Provider Note: CARDIOLOGY PROGRESS NOTE by Dr. Boogie Madera on 10/29/2019. SUBJECTIVE: The patient states he feels better. Her blood pressures come up. There renal function is also much improved. She denies any chest pain or discomfort there is no shortness of breath. There is no PND orthopnea. There is only trace leg edema. The patient continues to be in atrial fibrillation with controlled ventricular response there is no ventricle arrhythmia seen on the monitor. She is regained full strength of her left side of the body. PHYSICAL EXAMINATION: The patient is moderately obese in no acute distress Selected Entries 10/29/19 16:05 Temperature 98.4 F Temperature Oral Source Pulse Rate 77 Respiratory 16 Rate Blood Pressure 113/68 Blood Pressure 83 Mean BP Location Left Wrist BP Position Supine O2 Sat by Pulse 100 Oximetry Oxygen Flow 2.00 Rate Oxygen Delivery Nasal Cannula Method HEAD: Is atraumatic normocephalic. EYES: Pupils equal round regular reactive to light accommodation. Extraocular movements are normal. There is no conjunctival pallor. There is no scleral icterus. EARS: External auditory canals are clear. Tympanic membranes are intact. NOSE: There is no deviated nasal septum. There is no inflammation nasal mucous membrane. MOUTH: Mucous membranes of the mouth are moist. Tongue is moist. There is no ulcers. There is no bleeding from the gums. THROAT: There is no redness of the oropharynx. There is no exudates. SKIN: There is no skin rashes. There is no petechia or ecchymosis. NECK: Is supple. There is no JVD. Carotids are equal there is no bruit. There is no lymphadenopathy. There is no goiter. There is no accessory muscle respiration use. Trachea central. LUNGS: Is clear to auscultation percussion without any rhonchi rales or wheezing. HEART: S1-S2 is heard. S1 is of variable intensity. There is systolic murmur left sternal border and the apex there is no rub. ABDOMEN: Is obese. Nontender. There is no hepatosplenomegaly. Bowel sounds are well heard. EXTREMITIES: Femorals are deep. Femorals are diminished. Leg pulses are diminished. There is 1+ edema bilaterally. There is no DVT or cellulitis. There is no calf tenderness. BIOCHEMISTRY TECHNOLOGIST: The patient is conscious awake alert oriented x3 with very mild left-sided weakness. PSYCHIATRIC: Patient judgment insight are intact his affect is normal. Head MRI 10/19/19 00:00 IMPRESSION: MULTIPLE SMALL FOCI OF ACUTE INFARCT WHICH INVOLVES SEGMENTS OF THE RIGHT INSULAR CORTEX, DILLARD RADIATA AND CORTICAL/SUBCORTICAL AREAS IN THE POSTERIOR FRONTAL AND PARIETAL LOBE WELL TWO SMALL FOCI IN THE OCCIPITAL LOBE GENERALIZED ATROPHY WITH PERIVENTRICULAR WHITE MATTER DISEASE AND MICROVASCULAR ISCHEMIC CHANGES Dr. Salinas was called and notified of the findings at 8:27 PM. Chest X-Ray 10/19/19 14:40 IMPRESSION: Moderate cardiomegaly. No acute cardiopulmonary disease. Hyperinflated lungs which can be seen with obstructive lung disease. Head CT 10/19/19 14:40 IMPRESSION: MILD CHRONIC CHANGES OF ATROPHY AND MICROVASCULAR ISCHEMIA. NO ACUTE PROCESS. EVIDENCE OF ACUTE STROKE: NO. Head CTA 10/19/19 14:59 IMPRESSION: NO CTA EVIDENCE OF STENOSIS OR ANEURYSM OF [place]. Neck CTA 10/19/19 14:59 IMPRESSION: There is some prominent calcified plaque in the left carotid bulb. There appears to be less than 50% stenosis of the ICA. The right vertebral artery is smaller than the left. Humerus X-Ray 10/20/19 00:00 IMPRESSION: No acute osseous abnormality of the right humerus. Venous Doppler Study 10/20/19 00:00 IMPRESSION: No deep vein thrombosis within the right upper extremity. 5.7 cm subcutaneous fluid collection adjacent to the antecubital fossa, which may represent an area of IV catheter infiltration. Carotid Doppler Study 10/22/19 00:00 IMPRESSION: 1. No hemodynamically significant stenosis. 2. Antegrade vertebral arteries. Chest X-Ray 10/26/19 00:00 IMPRESSION: Cardiomegaly without a superimposed acute cardiopulmonary process. Labs- All tests 24 hr 10/29/19 05:09 Sodium 136.7 L Potassium 4.1 Chloride 104 Carbon Dioxide 27 Anion Gap 6 BUN 32 H Creatinine 1.63 H Est GFR ( Amer) 38 L Est GFR (MDRD) Non-Af 31 L Glucose 92 Calcium 8.5 IMPRESSION/RECOMMENDATION: 1. Prolonged chest tightness: This is resolved. Doubt if this is unstable angina. In spite of the 4 hours of chest pain tightness that the patient had her troponin is only borderline elevated and is now trending down. The patient is on nitrates, but due to the patient's low blood pressure will discontinue this. Also the patient troponin is come down and hence no definite evidence of non-ST elevation TN. Later 4 to 6 weeks after the acute CVA we would recommend that the patient have a IV Lexiscan Cardiolite stress test. Unfortunately the patient is EKG showed left bundle branch block pattern and hence is non- diagnostic. 2. Acute embolic CVA: Patient improving. Agree with anticoagulation. 3. Atrial fibrillation with controlled ventricular response. Note that the patient has a long history of intermittent palpitations. Most likely the patient has had paroxysmal atrial fibrillation. The patient's corrected Marbin vas 2 score is is 5. Hence chronic anticoagulation is indicated. Agree with Eliquis. Continue Lopressor. At present the goal is to control the patient's heart rate. Would consider chemical or electrical cardiovesion. 4. Acute renal failure.: We will start the patient on midodrine. Suspect that the patient dehydration and hypotension other causes of the patient's deterioration of renal function. We will hold the patient's losartan for now. 5. Cardiomyopathy with severely reduced LV ejection fraction. Continue beta-leah. Continue the patient on Entresto. We will watch out for any side effects or intolerance. In that case will go back to losartan later when the patient renal function improves. Until then we will start the patient on hydralazine at 10 mg p.o. every 8 hours, along with a beta-leah. 6. Hypertension: Patient blood pressures have improved since yesterday but to be able to give good anti-cardiomyopathy medication will start the patient on midodrine 5 mg p.o. 3 times daily... Note on admission the patient's blood pressure was very high. 7. Obesity: The patient has symptoms of sleep apnea. Would recommend the patient have a sleep study. This can be done as an outpatient. Medications reviewed. Medications adjusted. New medications added, hence medical decision making is of high complexity due to multiple medication changes. Medical regimen and management plan discussed with attending provider on the case. 40 minutes spent as patient with more than 50% time spent in direct patient care will follow
[2019-10-30] MEDS: HYDRALAZINE HCL 10 MG TABLET PO SCH (06:23)
[2019-10-30 07:29] LABS: ANION GAP 6 (5-19); BLOOD UREA NITROGEN 23 mg/dL (7-20); CALCIUM 8.5 mg/dL (8.4-10.2); CARBON DIOXIDE 30 mmol/L (22-30); CHLORIDE 102 mmol/L (98-107); GLUCOSE 87 mg/dL (75-110); POTASSIUM 4.4 mmol/L (3.6-5.0)
[2019-10-30] MEDS: GABAPENTIN 100 MG CAPSULE PO SCH ×3 (10:33→20:02)
[2019-10-30] MEDS: MIDODRINE HCL 5 MG TABLET PO SCH ×3 (10:38→20:03)
[2019-10-30] MEDS: FLUOXETINE HCL 20 MG CAPSULE PO SCH (10:38)
[2019-10-30] MEDS: APIXABAN 2.5 MG TABLET PO SCH ×2 (10:38→20:03)
[2019-10-30] MEDS: METOPROLOL SUCCINATE 25 MG TAB.SR.24H PO SCH (10:39)
[2019-10-30] MEDS ORDERED: METOPROLOL SUCCINATE 25 MG TAB.SR.24H PO ONE (11:15)
--- NOTE | 2019-10-30 11:45 | PDOC PROGRESS REPORT ---
Subjective Progress Note for:: 10/30/19 Subjective:: Patient states she feels well. She gets up and ambulates. Still having weakness in her left arm and left leg. Noticed some palpitations occasionally. When she gets up and walk her heart rate seems to jump into the 120s to 130s. Reason For Visit: AFIB RVR, STROKE LIKE SYMPTOMS Physical Exam Vital Signs: Temp Pulse Resp BP Pulse Ox 97.9 F 96 18 134/84 H 93 10/30/19 07:30 10/30/19 07:30 10/30/19 07:30 10/30/19 07:30 10/30/19 07:30 Intake & Output 10/29/19 10/30/19 10/31/19 06:59 06:59 06:59 Intake Total 437 942 Balance 437 942 Weight 77.1 kg 76.7 kg 76.7 kg General appearance: PRESENT: no acute distress, cooperative Neck exam: ABSENT: JVD Respiratory exam: PRESENT: symmetrical, unlabored. ABSENT: accessory muscle use, retraction, tachypnea Cardiovascular exam: PRESENT: irregular rhythm, tachycardia. ABSENT: bradycard ia, RRR GI/Abdominal exam: PRESENT: soft. ABSENT: rebound, rigid, tenderness Musculoskeletal exam: PRESENT: ambulatory Neurological exam: PRESENT: alert, awake, oriented to person, oriented to place, oriented to time, motor sensory deficit - 4/5 in left upper and left lower extremity. 5/5 in right side. Results Laboratory Results: 10/28/19 05:07 10/30/19 06:03 10/30/19 06:03 Sodium 137.8 Potassium 4.4 Chloride 102 Carbon Dioxide 30 Anion Gap 6 BUN 23 H Creatinine 1.06 Est GFR ( Amer) > 60 Glucose 87 Calcium 8.5 10/19/19 10/19/19 10/19/19 15:01 15:01 22:06 Creatine Kinase 22 L CK-MB (CK-2) 0.55 Troponin I 0.015 0.014 10/20/19 10/26/19 10/26/19 06:15 01:26 01:26 Creatine Kinase 71 CK-MB (CK-2) 0.56 Troponin I 0.015 0.093 10/26/19 10/26/19 10/26/19 07:33 07:33 12:15 Creatine Kinase 65 63 CK-MB (CK-2) 0.62 Troponin I 0.121 10/26/19 10/26/19 12:15 17:53 Creatine Kinase CK-MB (CK-2) 0.43 Troponin I 0.099 0.084 Impressions: Head MRI 10/19/19 00:00 IMPRESSION: MULTIPLE SMALL FOCI OF ACUTE INFARCT WHICH INVOLVES SEGMENTS OF THE RIGHT INSULAR CORTEX, DILLARD RADIATA AND CORTICAL/SUBCORTICAL AREAS IN THE POSTERIOR FRONTAL AND PARIETAL LOBE WELL TWO SMALL FOCI IN THE OCCIPITAL LOBE GENERALIZED ATROPHY WITH PERIVENTRICULAR WHITE MATTER DISEASE AND MICROVASCULAR ISCHEMIC CHANGES Dr. Salinas was called and notified of the findings at 8:[address] 10/19/19 14:40 IMPRESSION: MILD CHRONIC CHANGES OF ATROPHY AND MICROVASCULAR ISCHEMIA. NO ACU TE PROCESS. EVIDENCE OF ACUTE STROKE: NO. Head CTA 10/19/19 14:59 IMPRESSION: NO CTA EVIDENCE OF STENOSIS OR ANEURYSM OF THE [place]. Neck CTA 10/19/19 14:59 IMPRESSION: There is some prominent calcified plaque in the left carotid bulb. There appears to be less than 50% stenosis of the ICA. The right vertebral artery is smaller than the left. Humerus X-Ray 10/20/19 00:00 IMPRESSION: No acute osseous abnormality of the right humerus. Venous Doppler Study 10/20/19 00:00 IMPRESSION: No deep vein thrombosis within the right upper extremity. 5.7 cm subcutaneous fluid collection adjacent to the antecubital fossa, which may represent an area of IV catheter infiltration. Carotid Doppler Study 10/22/19 00:00 IMPRESSION: 1. No hemodynamically significant stenosis. 2. Antegrade vertebral arteries. Chest X-Ray 10/26/19 00:00 IMPRESSION: Cardiomegaly without a superimposed acute cardiopulmonary process. Assessment and Plan - Diagnosis (1) Atrial fibrillation Qualifiers: Atrial fibrillation type: paroxysmal Qualified Code(s): I48.0 - Paroxysmal atrial fibrillation Is this a current diagnosis for this admission?: Yes Plan: Longstanding paroxysmal atrial fibrillation with rapid ventricular response. Heart rate noted to bounce into the 130s today while patient ambulates. I have increased patient's Toprol-XL to 50 mg daily. Monitor BP closely. Continue Eliquis. Chads vasc score of 5. 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 Recommendations appreciated. (2) Acute ischemic right MCA stroke Is this a current diagnosis for this admission?: Yes Plan: Right MCA stroke with left-sided deficits. Patient ambulated 200 feet with physical therapy yesterday. Recommended for home health. Order placed for discharge planning to set up home PT and OT. Carotid ultrasound showed no significant stenosis. TTE performed. MRI brain showed multiple small foci of acute infarcts involving segments to the posterior frontal and parietal lobes; two small foci to the occipital lobe. Has suspicion for cardioembolic stroke associated with A. fib and as such patient is on Eliquis. Antiplatelet therapy deferred due to increased risk of bleeding. Continue atorvastatin. (3) PHILLY (acute kidney injury) Is this a current diagnosis for this admission?: Yes Plan: Suspected prerenal secondary to hypotension. PHILLY has resolved today and kidney function is back to normal. (4) Hypotension Is this a current diagnosis for this admission?: Yes Plan: Patient has history of hypertension and was on losartan and hydrochlorothiazide at home. Noted to have been hypotensive during this hospitalization. Started on midodrine. BP is better today 134/84. Will monitor. If BP continues to improve we may be able to reintroduce losartan for her cardiomyopathy. (5) Systolic congestive heart failure Qualifiers: Heart failure chronicity: unspecified Qualified Code(s): I50.20 - Unspecified systolic (congestive) heart failure Is this a current diagnosis for this admission?: Yes Plan: Echocardiogram revealed LVEF 25 to 30% with moderate to severe global hypokinesis of the left ventricle. Likely chronic. Does not appear acutely decompensated. Dr. Haile is following and helping guide therapy. Currently on Toprol-XL and hydralazine. Will plan to resume losartan in place of hydralazine if blood pressure continues to hold now PHILLY has resolved. (6) UTI (urinary tract infection), uncomplicated Is this a current diagnosis for this admission?: Yes Plan: Resolved Completed course of IV Rocephin (7) Obesity (BMI 30-39.9) Is this a current diagnosis for this admission?: Yes - Time Time Spent with patient: 15-24 minutes
[2019-10-30] MEDS ORDERED: SACUBITRIL/VALSARTAN 24 MG/26 MG TABLET PO SCH (18:00)
[2019-10-30] MEDS: ATORVASTATIN CALCIUM 40 MG TABLET PO SCH (21:37)
--- NOTE | 2019-10-30 23:00 | Progress Note ---
Provider Note Provider Note: CARDIOLOGY PROGRESS NOTE by Dr. Yasmine Johnson on 10/30/2019. SUBJECTIVE: The patient appears to be stable. She denies any chest pain or discomfort. There is no PND orthopnea or leg edema. There is no ventricular arrhythmias seen on the monitor. The patient remains in atrial fibrillation with controlled ventricular response. There is no bleeding on anticoagulation. The patient has been started on Entresto now that the renal function is much much improved. Unfortunately will stop the Entresto due to the patient being not able to afford it as an outpatient. PHYSICAL EXAMINATION: The patient is mild to moderately obese. In no acute distress Selected Entries 10/30/19 16:17 Temperature 99.6 F Temperature Oral Source Pulse Rate 93 Respiratory 21 H Rate Blood Pressure 128/84 H Blood Pressure 98 Mean BP Location Left Arm BP Position Supine O2 Sat by Pulse 97 Oximetry Oxygen Delivery Room Air Method HEAD: Is atraumatic normocephalic. EYES: Pupils equal round regular reactive to light accommodation. Extraocular movements are normal. There is no conjunctival pallor. There is no scleral icterus. EARS: External auditory canals are clear. Tympanic membranes are intact. NOSE: There is no deviated nasal septum. There is no inflammation nasal mucous membrane. MOUTH: Mucous membranes of the mouth are moist. Tongue is moist. There is no ulcers. There is no bleeding from the gums. THROAT: There is no redness of the oropharynx. There is no exudates. SKIN: There is no skin rashes. There is no petechia or ecchymosis. NECK: Is supple. There is no JVD. Carotids are equal there is no bruit. There is no lymphadenopathy. There is no goiter. There is no accessory muscle respiration use. Trachea central. LUNGS: Is clear to auscultation percussion without any rhonchi rales or wheezing. HEART: S1-S2 is heard. S1 is of variable intensity. There is systolic murmur left sternal border and the apex there is no rub. ABDOMEN: Is obese. Nontender. There is no hepatosplenomegaly. Bowel sounds are well heard. EXTREMITIES: Femorals are deep. Femorals are diminished. Leg pulses are diminished. There is 1+ edema bilaterally. There is no DVT or cellulitis. There is no calf tenderness. 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 PSYCHIATRIC: Patient judgment insight are intact his affect is normal. Head MRI 10/19/19 00:00 IMPRESSION: MULTIPLE SMALL FOCI OF ACUTE INFARCT WHICH INVOLVES SEGMENTS OF THE RIGHT INSULAR CORTEX, DILLARD RADIATA AND CORTICAL/SUBCORTICAL AREAS IN THE POSTERIOR FRONTAL AND PARIETAL LOBE WELL TWO SMALL FOCI IN THE OCCIPITAL LOBE GENERALIZED ATROPHY WITH PERIVENTRICULAR WHITE MATTER DISEASE AND MICROVASCULAR ISCHEMIC CHANGES Dr. Salinas was called and notified of the findings at 8:27 PM. Chest X-Ray 10/19/19 14:40 IMPRESSION: Moderate cardiomegaly. No acute cardiopulmonary disease. Hyperinflated lungs which can be seen with obstructive lung disease. Head CT 10/19/19 14:40 IMPRESSION: MILD CHRONIC CHANGES OF ATROPHY AND MICROVASCULAR ISCHEMIA. NO ACUTE PROCESS. EVIDENCE OF ACUTE STROKE: NO. Head CTA 10/19/19 14:59 IMPRESSION: NO CTA EVIDENCE OF STENOSIS OR ANEURYSM OF THE [place]. Neck CTA 10/19/19 14:59 IMPRESSION: There is some prominent calcified plaque in the left carotid bulb. There appears to be less than 50% stenosis of the ICA. The right vertebral artery is smaller than the left. Humerus X-Ray 10/20/19 00:00 IMPRESSION: No acute osseous abnormality of the right humerus. Venous Doppler Study 10/20/19 00:00 IMPRESSION: No deep vein thrombosis within the right upper extremity. 5.7 cm subcutaneous fluid collection adjacent to the antecubital fossa, which may represent an area of IV catheter infiltration. Carotid Doppler Study 10/22/19 00:00 IMPRESSION: 1. No hemodynamically significant stenosis. 2. Antegrade vertebral arteries. Chest X-Ray 10/26/19 00:00 IMPRESSION: Cardiomegaly without a superimposed acute cardiopulmonary process. Labs- All tests 24 hr 10/30/19 06:03 Sodium 137.8 Potassium 4.4 Chloride 102 Carbon Dioxide 30 Anion Gap 6 BUN 23 H Creatinine 1.06 Est GFR ( Amer) > 60 Est GFR (MDRD) Non-Af 51 L Glucose 87 Calcium 8.5 IMPRESSION/RECOMMENDATION: 1. Prolonged chest tightness: This is resolved. Doubt if this is unstable angina. In spite of the 4 hours of chest pain tightness that the patient had her troponin is only borderline elevated and is now trending down. The patient is on nitrates, but due to the patient's low blood pressure will discontinue this. Also the patient troponin is come down and hence no definite evidence of non-ST elevation [place]. Later 4 to 6 weeks after the acute CVA we would recommend that the patient have a IV Lexiscan Cardiolite stress test. Unfortunately the patient is EKG showed left bundle branch block pattern and hence is non- diagnostic. 2. Acute embolic CVA: Patient improving. Agree with anticoagulation. 3. Atrial fibrillation with controlled ventricular response. Note that the patient has a long history of intermittent palpitations. Most likely the patient has had paroxysmal atrial fibrillation. The patient's corrected Marbin vas 2 score is is 5. Hence chronic anticoagulation is indicated. Agree with Eliquis. Continue Lopressor. At present the goal is to control the patient's heart rate. Would consider chemical or electrical cardiovesion. 4. Acute renal failure.: We will start the patient on midodrine. Suspect that the patient dehydration and hypotension other causes of the patient's deterioration of renal function. We will hold the patient's losartan for now. 5. Cardiomyopathy with severely reduced LV ejection fraction. Will increase the patient beta-leah. Note the patient renal function is vastly improved. The patient has been started on Entresto. As per prior discussions the patient cannot afford Entresto hence we will stop it and go back to losartan. We will discussed with the hospitalist about this in the a.m.. 6. Hypertension: Patient blood pressures improved on midodrine 5 mg p.o. 3 times daily. 7. Obesity: The patient has symptoms of sleep apnea. Would recommend the patient have a sleep study. This can be done as an outpatient. Medications reviewed. Medications adjusted. New medications added, hence medical decision making is of high complexity due to multiple medication changes. Medical regimen and management plan discussed with attending provider on the case. 40 minutes spent as patient with more than 50% time spent in direct patient care will follow.
[2019-10-31 07:32] LABS: BLOOD UREA NITROGEN 17 mg/dL (7-20); CALCIUM 8.8 mg/dL (8.4-10.2); CARBON DIOXIDE 31 mmol/L (22-30); CHLORIDE 103 mmol/L (98-107); GLUCOSE 94 mg/dL (75-110); POTASSIUM 4.6 mmol/L (3.6-5.0)
[2019-10-31 07:39] LABS: ANION GAP 3 (5-19)
[2019-10-31 08:15] VITALS: BP 134/99
[2019-10-31] MEDS ORDERED: ASPIRIN 81 MG TABLET, ENT COATED PO SCH (10:00)
[2019-10-31] MEDS ORDERED: METOPROLOL SUCCINATE 50 MG TAB.SR.24H PO SCH (10:00)
[2019-10-31] MEDS ORDERED: LOSARTAN POTASSIUM 25 MG TABLET PO SCH (10:00)
[2019-10-31] MEDS ORDERED: METOPROLOL SUCCINATE 25 MG TAB.SR.24H PO SCH (10:00)
[2019-10-31] MEDS: GABAPENTIN 100 MG CAPSULE PO SCH (10:09)
[2019-10-31] MEDS: APIXABAN 2.5 MG TABLET PO SCH (10:09)
[2019-10-31] MEDS: FLUOXETINE HCL 20 MG CAPSULE PO SCH (10:10)
[2019-10-31] MEDS: MIDODRINE HCL 5 MG TABLET PO SCH (10:10)
--- NOTE | 2019-10-31 11:47 | Progress Note ---
Provider Note Provider Note: CARDIOLOGY PROGRESS NOTE by Dr. Yasmine Johnson on 10/31/2019. SUBJECTIVE: The patient appears to be comfortable. She is walked in the hallway without any problems. She continues to be in atrial fibrillation with controlled ventricular response. She denies any shortness of breath PND orthopnea leg edema. There is no dizziness or near syncope or syncope. She has no recurrence of TIA CVA symptoms. There is no bleeding on Eliquis. PHYSICAL EXAMINATION: The patient is mildly obese. In no acute distress. She is well-groomed. Selected Entries 10/31/19 10/31/19 07:34 08:00 Temperature 98.6 F Temperature Oral Source Heart Rate ( 94 Monitors) Respiratory 18 Rate Blood Pressure 134/99 H Blood Pressure 110 Mean BP Location Left Arm BP Position Supine O2 Sat by Pulse 94 Oximetry Oxygen Delivery Room Air Method HEAD: Is atraumatic normocephalic. EYES: Pupils equal round regular reactive to light accommodation. Extraocular movements are normal. There is no conjunctival pallor. There is no scleral icterus. EARS: External auditory canals are clear. Tympanic membranes are intact. NOSE: There is no deviated nasal septum. There is no inflammation nasal mucous membrane. MOUTH: Mucous membranes of the mouth are moist. Tongue is moist. There is no ulcers. There is no bleeding from the gums. THROAT: There is no redness of the oropharynx. There is no exudates. SKIN: There is no skin rashes. There is no petechia or ecchymosis. NECK: Is supple. There is no JVD. Carotids are equal there is no bruit. There is no lymphadenopathy. There is no goiter. There is no accessory muscle respiration use. Trachea central. LUNGS: Is clear to auscultation percussion without any rhonchi rales or wheezing. HEART: S1-S2 is heard. S1 is of variable intensity. There is systolic murmur left sternal border and the apex there is no rub. ABDOMEN: Is obese. Nontender. There is no hepatosplenomegaly. Bowel sounds are well heard. EXTREMITIES: Femorals are deep. Femorals are diminished. Leg pulses are diminished. There is 1+ edema bilaterally. There is no DVT or cellulitis. There is no calf tenderness. 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 PSYCHIATRIC: Patient judgment insight are intact his affect is normal. The patient intake and output is not accurate. Labs- All tests 24 hr 10/31/19 06:43 Sodium 137.4 Potassium 4.6 Chloride 103 Carbon Dioxide 31 H Anion Gap 3 L BUN 17 Creatinine 0.95 Est GFR ( Amer) > 60 Est GFR (MDRD) Non-Af 58 L Glucose 94 Calcium 8.8 Head MRI 10/19/19 00:00 IMPRESSION: MULTIPLE SMALL FOCI OF ACUTE INFARCT WHICH INVOLVES SEGMENTS OF THE RIGHT INSULAR CORTEX, DILLARD RADIATA AND CORTICAL/SUBCORTICAL AREAS IN THE POSTERIOR FRONTAL AND PARIETAL LOBE WELL TWO SMALL FOCI IN THE OCCIPITAL LOBE GENERALIZED ATROPHY WITH PERIVENTRICULAR WHITE MATTER DISEASE AND MICROVASCULAR ISCHEMIC CHANGES Dr. Salinas was called and notified of the findings at 8:27 PM. Chest X-Ray 10/19/19 14:40 IMPRESSION: Moderate cardiomegaly. No acute cardiopulmonary disease. Hyperinflated lungs which can be seen with obstructive lung disease. Head CT 10/19/19 14:40 IMPRESSION: MILD CHRONIC CHANGES OF ATROPHY AND MICROVASCULAR ISCHEMIA. NO ACUTE PROCESS. EVIDENCE OF ACUTE STROKE: NO. Head CTA 10/19/19 14:59 IMPRESSION: NO CTA EVIDENCE OF STENOSIS OR ANEURYSM OF THE [place]. Neck CTA 10/19/19 14:59 IMPRESSION: There is some prominent calcified plaque in the left carotid bulb. There appears to be less than 50% stenosis of the ICA. The right vertebral artery is smaller than the left. Humerus X-Ray 10/20/19 00:00 IMPRESSION: No acute osseous abnormality of the right humerus. Venous Doppler Study 10/20/19 00:00 IMPRESSION: No deep vein thrombosis within the right upper extremity. 5.7 cm subcutaneous fluid collection adjacent to the antecubital fossa, which may represent an area of IV catheter infiltration. Carotid Doppler Study 10/22/19 00:00 IMPRESSION: 1. No hemodynamically significant stenosis. 2. Antegrade vertebral arteries. Chest X-Ray 10/26/19 00:00 IMPRESSION: Cardiomegaly without a superimposed acute cardiopulmonary process. IMPRESSION/RECOMMENDATION: 1. Prolonged chest tightness: This is resolved. Doubt if this is unstable angina. In spite of the 4 hours of chest pain tightness that the patient had her troponin is only borderline elevated and is now trending down. The patient is on nitrates, but due to the patient's low blood pressure will discontinue this. Also the patient troponin is come down and hence no definite evidence of non-ST elevation [place]. Later 4 to 6 weeks after the acute CVA we would recommend that the patient have a IV Lexiscan Cardiolite stress test. Unfortunately the patient is EKG showed left bundle branch block pattern and hence is non- diagnostic. 2. Acute embolic CVA: Patient improving. Agree with anticoagulation. 3. Atrial fibrillation with controlled ventricular response. Note that the patient has a long history of intermittent palpitations. Most likely the patient has had paroxysmal atrial fibrillation. The patient's corrected Marbin vas 2 score is is 5. Hence chronic anticoagulation is indicated. Agree with Eliquis. Continue Lopressor. At present the goal is to control the patient's heart rate. Would consider chemical or electrical cardiovesion after 4 to 6 weeks on chronic anticoagultion.. 4. Acute renal failure.: This is much improved the GFR now is 58. Continue losartan. 5. Cardiomyopathy with severely reduced LV ejection fraction. Will increase the patient beta-leah. Note the patient renal function is vastly improved. The patient has been started on Entresto. As per prior discussions the patient cannot afford Entresto hence we will stop it and go back to losartan. We will discussed with the hospitalist about this in the a.m.. 6. Hypertension: Patient blood pressures improved on midodrine 5 mg p.o. 3 times daily. 7. Obesity: The patient has symptoms of sleep apnea. Would recommend the patient have a sleep study. This can be done as an outpatient. The patient's cardiac status is stable. We will sign off. The patient can be discharged home, and patient advised to follow-up with me next week on November 09 first in my office at 1 PM. Patient is aware of this appointment.
--- NOTE | 2019-10-31 13:47 | PDOC DISCHARGE SUMMARY ---
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 Is this a current diagnosis for this admission?: Yes (5) Systolic congestive heart failure Is this a current diagnosis for this admission?: Yes (6) Acute ischemic right MCA stroke Is this a current diagnosis for this admission?: Yes (7) Atrial fibrillation Is this a current diagnosis for this admission?: Yes (8) Hypertension Is this a current diagnosis for this admission?: Yes (9) Obesity (BMI 30-39.9) Is this a current diagnosis for this admission?: Yes (10) Traumatic ecchymosis of right upper arm Is this a current diagnosis for this admission?: Yes (11) UTI (urinary tract infection), uncomplicated Is this a current diagnosis for this admission?: Yes (12) Thrombocytopenia Is this a current diagnosis for this admission?: Yes (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 Is this a current diagnosis for this admission?: Yes - Additional Information Resuscitation Status: Full Code Discharge Diet: Cardiac Discharge Activity: Activity As Tolerated, Balance Activity w/Rest, Weigh Daily Referrals: ANNMARIE YAN MD [Primary Care Provider] - 11/01/19 3:40 pm (Right now, office is doing appointments over the phone.) VERNA WU MD [ACTIVE STAFF] - 11/06/19 1:30 pm Prescriptions: Losartan Potassium [Cozaar 25 mg Tablet] 25 mg PO Q12 #60 tablet Apixaban [Eliquis 5 mg Tablet] 5 mg PO BID #60 tablet Atorvastatin Calcium [Lipitor 40 mg Tablet] 40 mg PO QHS #30 tablet Midodrine HCl [Proamatine 5 mg Tablet] 5 mg PO TID #90 tablet Fluoxetine HCl [Prozac 20 mg Capsule] 20 mg PO DAILY #30 capsule Metoprolol Succinate [Toprol Xl 50 mg Tab.sr] 50 mg PO DAILY #30 tab.sr.24h Home Medications: Gabapentin 300 mg PO TID 11/19/14 Acetaminophen [Tylenol 325 mg Tablet] 650 mg PO Q4HP PRN tablet 10/31/19 Apixaban [Eliquis 5 mg Tablet] 5 mg PO BID #60 tablet 10/31/19 Atorvastatin Calcium [Lipitor 40 mg Tablet] 40 mg PO QHS #30 tablet 10/31/19 Fluoxetine HCl [Prozac 20 mg Capsule] 20 mg PO DAILY #30 capsule 10/31/19 Losartan Potassium [Cozaar 25 mg Tablet] 25 mg PO Q12 #60 tablet 10/31/19 Metoprolol Succinate [Toprol Xl 50 mg Tab.sr] 50 mg PO DAILY #30 tab.sr.24h 10/31/19 Midodrine HCl [Proamatine 5 mg Tablet] 5 mg PO TID #90 tablet 10/31/19 History of Present Illiness History of Present Illness: Per H&P by Nahun Castro NP: Shiloh Spencer is a 74-year-old female, with a past medical history of hypertension on losartan 100 mg daily, Lopressor 50 mg BID, and hydrochlorothiazide 12.5 mg daily presented to the ED via EMS after a fall. Patient states that she went to bed early last evening woke up at 3:30 AM and felt good. She is been having left-sided weakness at approximately 11 AM today. When she got up to take a shower she had worsening left-sided weakness and fell she denies any trauma from the fall. She herself called EMS, whom transported her to the ED. Upon arrival to the ED 1445 her blood pressure was 154/124 with a heart rate of 132 EKG revealed new onset atrial fibrillation. We were called to the ED to evaluate the patient at which time she was noted to have a blood pressure of 181/160 with heart rate 120s to 130s. She was bolused with 10 mg of diltiazem and a diltiazem drip was started her blood pressure did come down to 153/81 and heart rate of 62 remained in Afib. She had a new left facial droop, and slurred speech. She had an NIH stroke scale of 8. CTA of the head was done and revealed no intracranial abnormalities. MRI of the brain was done which revealed multiple small foci of acute infarct involving segments of the right insular cortex, moulton radiata, and cortical/subcortical areas in the posterior frontal and parietal lobe as well as 2 small foci in the occipital lobe. Heparin drip was ordered and she was admitted to the ICU for further management. Hospital Course Hospital Course: (1) PHILLY (acute kidney injury) Improved; Cr 1.12-> 2.36-> 2.74-> 2.56-> 1.63-> 0.95. Baseline 1.2 Prerenal r/t hypotension. (2) Hypotension Resolved. Continue Midodrine. Tolerating betablocker and ARB therapy. (3) Chest pain No further episodes. EKG shows LBBB (noted on previous EKG) w/o ST segment changes. Troponin 0.093-> 0.121-> 0.099-> 0.[address] Mcdonald; no suspicion for NSTEMI. Likely troponin leak related to cardiomyopathy. 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 Noted antegrade vertebral arteries. Echocardiogram shows LVEF 25 to 30% with moderate to severe global hypokinesis of the left ventricle. Bubble study is negative for intracardiac shunt. She is noted to have mild pulmonary hypertension. MRI head showed multiple small foci of acute infarcts involving segments to the posterior frontal and parietal lobes; two small foci to the occipital lobe. Continue daily statin therapy. Continue Eliquis. Discharged with home health and physical therapy services. (5) Systolic congestive heart failure Echocardiogram revealed LVEF 25 to 30% with moderate to severe global hypokinesis of the left ventricle. Cardiology consulted. Medications adjusted per Dr. Mcdonald; discharged on metoprolol, losartan, atorvastatin, and eliquis. Recommend Cardiac diet. Close follow up as an outpatient. (6) Acute ischemic right MCA stroke As above (7) Atrial fibrillation Cardiology is consulted. Chads Vascor 5. Continue Eliquis Rate controlled on metoprolol (8) Hypertension Medications as above. Cardiac diet. (9) Obesity (BMI 30-39.9) Dietary and lifestyle modification are encouraged. Continue Cardiac diet. Registered dietitian was consulted. (10) Traumatic ecchymosis of right upper arm Resolved. Related to fall at home. 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 Physical Exam Vital Signs: Temp Pulse Resp BP Pulse Ox 98.6 F 105 H 18 134/99 H 94 10/31/19 07:34 10/31/19 07:34 10/31/19 07:34 10/31/19 07:34 10/31/19 07:34 Intake & Output 10/30/19 10/31/19 11/01/19 06:59 06:59 06:59 Intake Total 942 570 480 Output Total 550 175 Balance 942 20 305 Weight 76.7 kg 76 kg General appearance: PRESENT: no acute distress, cooperative, obese, well- developed, well-nourished Head exam: PRESENT: atraumatic, normocephalic Eye exam: PRESENT: conjunctiva pink, EOMI, PERRLA. ABSENT: scleral icterus Mouth exam: PRESENT: moist, tongue midline Respiratory exam: PRESENT: clear to auscultation rocky, symmetrical, unlabored. ABSENT: rales, rhonchi, wheezes Cardiovascular exam: PRESENT: irregular rhythm. ABSENT: diastolic murmur, rubs, systolic murmur Pulses: PRESENT: normal dorsalis pedis pul Vascular exam: PRESENT: normal capillary refill Extremities exam: PRESENT: full ROM. ABSENT: calf tenderness, clubbing, pedal edema Musculoskeletal exam: PRESENT: ambulatory Neurological exam: PRESENT: alert, awake, oriented to person, oriented to place, oriented to time, oriented to situation, CN II-XII grossly intact, other - 4/5 in left upper and left lower extremity. 5/5 in right side. No facial asymetry or slurred speech. ABSENT: motor sensory deficit Psychiatric exam: PRESENT: appropriate affect, normal mood. ABSENT: homicidal ideation, suicidal ideation Skin exam: PRESENT: dry, intact, warm. ABSENT: cyanosis, rash Results Laboratory Results: WBC 6.9 10^3/uL (4.0-10.5) 10/28/19 05:07 RBC 4.02 10^6/uL (3.72-5.28) 10/28/19 05:07 Hgb 12.7 g/dL (12.0-15.5) 10/28/19 05:07 Hct 37.9 % (36.0-47.0) 10/28/19 05:07 MCV 94 fl (80-97) 10/28/19 05:07 MCH 31.6 pg (27.0-33.4) 10/28/19 05:07 MCHC 33.6 g/dL (32.0-36.0) 10/28/19 05:07 RDW 14.4 % (11.5-14.0) H 10/28/19 05:07 Plt Count 127 10^3/uL (150-450) L 10/28/19 05:07 Lymph % (Auto) 30.0 % (13-45) 10/24/19 04:28 [place] % (Auto) 11.6 % (3-13) 10/24/19 04:28 Eos % (Auto) 8.0 % (0-6) H 10/24/19 04:28 Baso % (Auto) 1.1 % (0-2) 10/24/19 04:28 Absolute Neuts (auto) 3.0 10^3/uL (1.7-8.2) 10/24/19 04:28 Absolute Lymphs (auto) 1.8 10^3/uL (0.5-4.7) 10/24/19 04:28 Absolute Monos (auto) 0.7 10^3/uL (0.1-1.4) 10/24/19 04:28 Absolute Eos (auto) 0.5 10^3/uL (0.0-0.6) 10/24/19 04:28 Absolute Basos (auto) 0.1 10^3/uL (0.0-0.2) 10/24/19 04:28 Seg Neutrophils % 49.3 % (42-78) 10/24/19 04:28 PT 16.6 SEC (11.4-15.4) H 10/20/19 10:24 INR 1.33 10/20/19 10:24 APTT 30.1 SEC (23.5-35.8) 10/20/19 13:46 Sodium 137.4 mmol/L (137-145) 10/31/19 06:43 Potassium 4.6 mmol/L (3.6-5.0) 10/31/19 06:43 Chloride 103 mmol/L (98-107) 10/31/19 06:43 Carbon Dioxide 31 mmol/L (22-30) H 10/31/19 06:43 Anion Gap 3 (5-19) L 10/31/19 06:43 BUN 17 mg/dL (7-20) 10/31/19 06:43 Creatinine 0.95 mg/dL (0.52-1.25) 10/31/19 06:43 Est GFR ( Amer) > 60 (>60) 10/31/19 06:43 Est GFR (MDRD) Non-Af 58 (>60) L 10/31/19 06:43 Glucose 94 mg/dL (75-110) 10/31/19 06:43 POC Glucose 134 mg/dL (70-110) H 10/19/19 14:58 Hemoglobin A1c % 5.4 % (4.7-6.0) 10/20/19 06:15 Calcium 8.8 mg/dL (8.4-10.2) 10/31/19 06:43 Phosphorus 4.0 mg/dL (2.5-4.5) 10/24/19 04:28 Magnesium 2.3 mg/dL (1.6-2.3) 10/24/19 04:28 Total Bilirubin 0.8 mg/dL (0.2-1.3) 10/20/19 04:22 Direct Bilirubin 0.1 mg/dL (0.0-0.4) 10/20/19 04:22 Neonat Total Bilirubin Not Reportable 10/20/19 04:22 Neonat Direct Bilirubin Not Reportable 10/20/19 04:22 Neonat Indirect Bili Not Reportable 10/20/19 04:22 AST 23 U/L (14-36) 10/20/19 04:22 ALT 9 U/L (<35) 10/20/19 04:22 Alkaline Phosphatase 44 U/L (38-126) 10/20/19 04:22 Creatine Kinase 63 U/L (30-135) 10/26/19 12:15 CK-MB (CK-2) 0.43 ng/mL (<4.55) 10/26/19 12:15 Troponin I 0.084 ng/mL 10/26/19 17:53 Total Protein 6.9 g/dL (6.3-8.2) 10/20/19 04:22 Albumin 3.4 g/dL (3.5-5.0) L 10/20/19 04:22 Triglycerides 70 mg/dL (<150) 10/20/19 04:22 Cholesterol 131.10 mg/dL (0-200) 10/20/19 04:22 LDL Cholesterol Direct 82 mg/dL (<100) 10/20/19 04:22 VLDL Cholesterol 14.0 mg/dL (10-31) 10/20/19 04:22 HDL Cholesterol 36 mg/dL (>40) L 10/20/19 04:22 TSH 2.25 uIU/mL (0.47-4.68) 10/19/19 22:06 Free T4 1.30 ng/dL (0.78-2.19) 10/19/19 22:06 Free T3 pg/mL 2.57 pg/mL (2.77-5.27) L 10/19/19 22:06 Cortisol AM Sample 7.89 ug/dL (4.46-22.7) 10/27/19 05:12 Urine Color YELLOW 10/20/19 18:25 Urine Appearance SLIGHTLY-CLOUDY 10/20/19 18:25 Urine pH 5.0 (5.0-9.0) 10/20/19 18:25 Ur Specific [place] 1.042 10/20/19 18:25 Urine Protein 30 mg/dL (NEGATIVE) H 10/20/19 18:25 Urine Glucose (UA) NEGATIVE mg/dL (NEGATIVE) 10/20/19 18:25 Urine Ketones NEGATIVE mg/dL (NEGATIVE) 10/20/19 18:25 Urine Blood NEGATIVE (NEGATIVE) 10/20/19 18:25 Urine Nitrite (Reflex) NEGATIVE (NEGATIVE) 10/20/19 18:25 Urine Bilirubin NEGATIVE (NEGATIVE) 10/20/19 18:25 Urine Urobilinogen NEGATIVE mg/dL (<2.0) 10/20/19 18:25 Leukocyte Esterase Rfl MODERATE (NEGATIVE) H 10/20/19 18:25 Urine RBC (Auto) 1 /HPF 10/20/19 18:25 U Hyaline Cast (Auto) 1 /LPF 10/20/19 18:25 Urine Bacteria (Auto) 2+ /HPF 10/20/19 18:25 Urine WBC (Reflex) 21 /HPF 10/20/19 18:25 Squamous Epi Cells Auto 2 /HPF 10/20/19 18:25 Urine Mucus (Auto) RARE /LPF 06/13/20 18:25 Urine Ascorbic Acid NEGATIVE (NEGATIVE) 10/20/19 18:25 Heparin-induced Plt Ab 0.084 OD (0.000-0.40) 10/22/19 16:16 10/19/19 10/19/19 10/20/19 15:01 22:06 06:15 CK-MB (CK-2) 0.55 Troponin I 0.015 0.014 0.015 10/26/19 10/26/19 10/26/19 01:26 07:33 12:15 CK-MB (CK-2) 0.56 0.62 0.43 Troponin I 0.093 0.121 0.099 10/26/19 17:53 CK-MB (CK-2) Troponin I 0.084 Impressions: Head MRI 10/19/19 00:00 IMPRESSION: MULTIPLE SMALL FOCI OF ACUTE INFARCT WHICH INVOLVES SEGMENTS OF THE RIGHT INSULAR CORTEX, MOULTON RADIATA AND CORTICAL/SUBCORTICAL AREAS IN THE POSTERIOR FRONTAL AND PARIETAL LOBE WELL TWO SMALL FOCI IN THE OCCIPITAL LOBE GENERALIZED ATROPHY WITH PERIVENTRICULAR WHITE MATTER DISEASE AND MICROVASCULAR ISCHEMIC CHANGES Dr. Salinas was called and notified of the findings at 8:27 PM. Chest X-Ray 10/19/19 14:40 IMPRESSION: Moderate cardiomegaly. No acute cardiopulmonary disease. Hyperinflated lungs which can be seen with obstructive lung disease. Head CT 10/19/19 14:40 IMPRESSION: MILD CHRONIC CHANGES OF ATROPHY AND MICROVASCULAR ISCHEMIA. NO ACUTE PROCESS. EVIDENCE OF ACUTE STROKE: NO. Head CTA 10/19/19 14:59 IMPRESSION: NO CTA EVIDENCE OF STENOSIS OR ANEURYSM OF THE ELIM IRA OF TSANG. Neck CTA 10/19/19 14:59 IMPRESSION: There is some prominent calcified plaque in the left carotid bulb. There appears to be less than 50% stenosis of the ICA. The right vertebral artery is smaller than the left. Humerus X-Ray 10/20/19 00:00 IMPRESSION: No acute osseous abnormality of the right humerus. Venous Doppler Study 10/20/19 00:00 IMPRESSION: No deep vein thrombosis within the right upper extremity. 5.7 cm subcutaneous fluid collection adjacent to the antecubital fossa, which may represent an area of IV catheter infiltration. Carotid Doppler Study 10/22/19 00:00 IMPRESSION: 1. No hemodynamically significant stenosis. 2. Antegrade vertebral arteries. Chest X-Ray 10/26/19 00:00 IMPRESSION: Cardiomegaly without a superimposed acute cardiopulmonary process. Plan Plan of Treatment: Patient is discharged home in stable condition with home health services. She is advised to follow-up with her primary care provider within 1 week. She is scheduled to follow-up with Dr. Mcdonald on 11/06/2019. She is encouraged to continue a cardiac diet. Take medications as prescribed. Do not smoke. She is instructed to return to the emergency department as needed for concerning symptoms. Time Spent: Greater than 30 Minutes Stroke Is this a Stroke Patient?: Yes Stroke Pt being discharged on Anti-thrombolytic therapy?: No Reason(s) for not prescribing Anti-thrombolytic therapy:: Medical Cont raindication Stroke Pt being discharged on Anti-coagulation therapy?: Yes Stroke Pt being discharged on Statins?: Yes Acute Heart Failure - Is this a Heart Failure Patient?: Yes Documentation of LVEF assessment?: Yes LVEF: LVEF Less Than or Equal to 35% Anticoagulant Therapy: Yes Discharged on Evidence-Based Beta Blockers: Yes Discharged on ARNI?: No-Document Contraindications Reason(s) not discharged on ARNI: Hypotension Discharged on ARB?: Yes Discharged on ACEI?: N/A Discharged on ARB For LVEF <35%, discharged on Aldosterone Antagonist?: No-document contraincations Reason(s) not discharged on Aldosterone Antagonist: Other Aldosterone Antagonist Reason - Other: per cardiology; hypotension/PHILLY Follow-up Appointment scheduled within 7 days?: Yes
== END 2019-10-31 13:00 | disposition home or self-care (01) | DRG 65 ==
LOC: ER 14:37 → EH 19:40 → ICU 21:39 → 3N 10-23 15:01 → 5 10-26 17:36
PROVIDERS: ADMIT Internal Medicine Critical Care Medicine; ATTEND Registered Nurse
DX: I63.411 Cerebral infarction due to embolism of right middle cerebral artery (principal); I50.20 Unspecified systolic (congestive) heart failure; G81.94 Hemiplegia, unspecified affecting left nondominant side; N39.0 Urinary tract infection, site not specified; N17.9 Acute kidney failure, unspecified; I42.9 Cardiomyopathy, unspecified; I48.0 Paroxysmal atrial fibrillation; R29.810 Facial weakness; I11.0 Hypertensive heart disease with heart failure; R47.1 Dysarthria and anarthria; E66.9 Obesity, unspecified; S40.021A Contusion of right upper arm, initial encounter; R47.81 Slurred speech; R29.708 NIHSS score 8; M79.7 Fibromyalgia; D69.59 Other secondary thrombocytopenia; T45.515A Adverse effect of anticoagulants, initial encounter; I44.7 Left bundle-branch block, unspecified; W19.XXXA Unspecified fall, initial encounter; R79.89 Other specified abnormal findings of blood chemistry; I95.9 Hypotension, unspecified; R07.89 Other chest pain; Z68.33 Body mass index [BMI] 33.0-33.9, adult; Z79.899 Other long term (current) drug therapy; Z90.49 Acquired absence of other specified parts of digestive tract; Z88.8 Allergy status to other drugs, medicaments and biological substances; Z91.018 Allergy to other foods; Z88.0 Allergy status to penicillin; Z91.013 Allergy to seafood
CPT/HCPCS: 36415; 70450; 70496; 70498; 70551; 71045; 80048; 80053; 80061; 81001; 82533; 82550; 82553; 82962; 83036; 83735; 84100; 84439; 84443; 84481; 84484; 85025; 85027; 85610; 85730; 86022; 87086; 87088; 87186; 93005; 93010; 93306; 93880; 93971; 96365; 99221; 99285; 99291; J0696; J1644; J2405; J3475; J3480; J3490; J7120